=== PATIENT | male | born 1970 | race Caucasian/White ===

== ENCOUNTER 2025-05-03 20:05 | Observation (INO) | payer MEDICARE, SELFPAY ==
[2025-05-03] VITALS (7 sets, daily range): BP systolic 117–154; BP diastolic 88–104; PULSE 67–83; RESP 13–20; TEMP 36.9; O2SAT 92–98; BMI 29.5
--- NOTE | 2025-05-03 19:50 | ECG_ITS ---
APPROVED REPORT Exam: Resting ECG HR:84 bpm ECG Measurements Heart Rate 84 AXES NH 175 P 60 QRSd 125 QRS 79 QT 406 T 63 QTc 447 Conclusion SINUS RHYTHM POSSIBLE INFERIOR MYOCARDIAL INFARCTION , PROBABLY OLD [30 ms Q WAVE IN II/aVF] BORDERLINE ECG UNCONFIRMED REPORT Electronically signed by : IRVING KRISHNAMURTHY, 05/04/2025 07:44:15
--- NOTE | 2025-05-03 19:59 | XR_ITS ---
PROCEDURE INFORMATION: Exam: XR Chest Exam date and time: 05/03/2025 8:25 PM Age: 54 years old Clinical indication: Shortness of breath; Additional info: Soa/cp TECHNIQUE: Imaging protocol: Radiologic exam of the chest. Views: 1 view. COMPARISON: No relevant prior studies available. FINDINGS: Lungs: Unremarkable. No consolidation. Pleural spaces: Unremarkable. No pleural effusion. No pneumothorax. Heart/Mediastinum: Unremarkable. No cardiomegaly. Bones/joints: Unremarkable. IMPRESSION: No acute findings.
[2025-05-03 20:07] LABS: Hematocrit 35.6 % (42.0-52.0); Hemoglobin 12.0 g/dL (14.1-18.0); Immature Granulocytes % 0.4 %; Mean Corpuscular HGB Conc 33.7 g/dL (31.8-35.4); Mean Corpuscular Hemoglobin 28.2 pg (27.0-31.2); Mean Corpuscular Volume 83.8 fl (80-94); Nucleated Red Blood Cells % 0 %; Platelet Count 227 K/mm3 (142-424); Red Blood Count 4.25 M/mm3 (4.60-6.20); Red Cell Distribution Width-SD 48.2 fL; White Blood Count 9.2 K/mm3 (4.8-10.8)
--- NOTE | 2025-05-03 20:08 | ED_ITS ---
<Statement entered by Griselda Martinez DO - 05/05/25 18:19> I was consulted by the ANA, and we discussed the complexity of problems being addressed. I approve the treatment and management plan for this patient's care in the emergency department, thus performing a substantial portion of the medical decision making. Griselda Martinez DO Discharge Plan Disposition Patient Disposition: Admitted Condition: Good Clinical Impressions Clinical Impression: Unstable angina Discharge ED Provider: Griselda Martinez HPI <VERNELL Live - Last Filed: 05/03/25 22:49> General Chief Complaint: Chest Pain Stated Complaint: Chest Pain Time Seen by Provider: 05/03/25 20:07 Mode of Arrival: EMS Source of Information: Patient Description of Symptoms (Recalled from ER Triage Doc. by RN): PT REPORTS CHEST PAIN THAT BEGAN AN HOUR AGO, PT TOOK 3 NOTROS AT HOME WITHOUT RELIEF. PT REPORTS THE PAIN STARTS IN THE LEFT CHEST RADIATES INTO THE LEFT SHOULDER AND INTO THE JAW History of Present Illness HPI narrative: 54-year-old male presents to the emergency department via EMS from assisted living facility, for chest pain that is located left substernally radiating up into the jaw and down the left arm, patient states that it occurred 1 hour prior to arrival, patient has taken 3 nitroglycerin, with little relief of symptomatology, patient currently rates his chest pain a 9 out of 10, at maximal was a 9 out of 10, he endorses some shortness of breath that is since resolved, denies any fever or chills, does have nonproductive cough at baseline, does have past medical history consistent with COPD, he states that he did take a puff of inhaler , that did help his shortness of breath, he denies any abdominal pain but does admit to nausea no vomiting no constipation no diarrhea no urinary type symptomatology, patient is a current everyday smoker, previous history of alcohol use/drug use, other past medical history is consistent with hypothyroidism, coronary artery disease status post 10 stent placements, hyperlipidemia, patient is on antiplatelet therapy with clopidogrel, GERD. Initial triage vitals unremarkable. Please note that above description of symptoms, in this electronic medical record under categorization of recalled from ER triage doctor by RN are reflective of an initial nursing assessment, however, is not reflective of my full history and physical exam that was personally taken and clarified. Consequentially, this preceding description of symptoms, which may include the patient's categorized chief complaint in the EMR, do not reflect my personal clinical impression, and the ultimate description of history of present illness and patient stated complaints should be deferred to this section of the note. Unless stated otherwise or congruent with this section of the note, additional signs, symptoms, or incongruence should be interpreted as inaccurate with my clinical impression. MD complaint: chest pain Onset (ago): hour(s) Related Data Home Medications ?Medication ?Instructions ?Recorded ?Confirmed amiodarone 200 mg tablet 200 mg PO DAILY 05/03/25 amlodipine 10 mg tablet 10 mg PO DAILY 05/03/2504/18 atorvastatin 80 mg tablet 80 mg PO DAILY 05/03/2504/18 clopidogrel 75 mg tablet 75 mg PO DAILY 05/03/2504/18 duloxetine 60 mg capsule,delayed 60 mg PO DAILY 05/03/25 release sprinkle ferrous sulfate 325 mg (65 mg 325 mg PO DAILY 05/03/25 05/03/25 iron) tablet (FeroSul) fluphenazine HCl 5 mg tablet 5 mg PO DAILY 05/03/25 fluticasone furoate 100 1 inh inhalation DAILY 05/0305/03/25 mcg/actuation blister powder for inhalation (Arnuity Ellipta) isosorbide mononitrate 60 mg 60 mg PO DAILY 05/03/25 0 05/03/25 tablet,extended release 24 hr levothyroxine 200 mcg tablet 200 mcg PO DAILY 05/03/25 05/03/25 lisinopril 20 mg tablet 20 mg PO DAILY 05/03/2504/18 nitroglycerin 0.4 mg sublingual 0.4 mg sublingual Q5M PRN Chest 05/03/25 05/03/25 tablet Pain pantoprazole 40 mg granules 40 mg PO DAILY 05/03/25 delayed-release for susp in packet prazosin 1 mg capsule 1 mg PO HS 05/03/25 05/03/25 ranolazine 500 mg tablet,extended 500 mg PO BID 05/03/25 release,12 hr tamsulosin 0.4 mg capsule 0.4 mg PO DAILY 05/03/25 Previous Rx's ?Medication ?Instructions ?Recorded carvedilol 6.25 mg tablet 6.25 mg PO BID 30 days #60 t abs 05/04/25 Allergies Allergy/AdvReac Type Severity Reaction Status Date / Time acetaminophen (From Tylenol) Allergy Hives Verified 05/04/25 01:39 buspirone Allergy Unknown Verified 05/04/25 01:39 allergy reaction ibuprofen Allergy Rash Verified 05/04/25 01:39 ketorolac (From Toradol) Allergy Hives Verified 05/04/25 01:39 olanzapine (From Zyprexa) Allergy Unknown Verified 05/04/25 01:39 allergy reaction risperidone (From Risperdal) Allergy Unknown Verified 05/04/25 01:39 allergy reaction tramadol Allergy Hives Verified 05/04/25 01:39 ziprasidone (From Geodon) Allergy Unknown Verified 05/04/25 01:39 allergy reaction PFSH <VERNELL Live - Last Filed: 05/03/25 22:49> [facility] Disclaimer: The information contained in this section may have been updated after the patient was seen, as this information can be updated by other users. Medical History (Updated 05/04/25 @ 09:42 by VERNELL Escobedo) Stress bladder incontinence, male Pneumonia Emphysema/COPD History of transient ischemic attack (TIA) Colonoscopy planned Stomach ulcer Hypothyroid Congestive heart failure Hypertension Tonsillectomy planned Cholecystectomy planned Spinal stenosis History of left heart catheterization PTSD (post-traumatic stress disorder) Surgical History (Updated 05/04/25 @ 01:31 by Vanessa Carter RN) H/O adenoidectomy H/O heart artery stent H/O spinal fusion Social History (Updated 05/04/25 @ 01:31 by Vanessa Carter RN) Smoking Status: Current every day smoker alcohol intake: former current occupational status: other Travel in the last 8 weeks?: None <VERNELL Live - Last Filed: 05/03/25 22:49> ROS Obtained: Yes All systems reviewed & no additional complaints except as documented Physical Exam <VERNELL Live - Last Filed: 05/03/25 22:49> General General appearance: alert and in no apparent distress Head Head exam: atraumatic and normocephalic Eye Eye exam: Present normal appearance, PERRL and EOMI Neck Neck exam: Present full ROM; Absent meningismus Chest Chest inspection: Present normal inspection; Absent tenderness Respiratory Respiratory exam: Absent respiratory distress, wheezes, stridor, accessory muscle use or prolonged expiratory phase Cardiovascular Cardiovascular exam: Present normal rhythm and other (Pulses equal and symmetric in bilateral upper and lower extremities) Abdominal Exam Abdominal exam: Absent distention, tenderness, guarding, rebound or rigidity Extremities Exam Extremities exam: Absent edema Neurological Exam Neurological exam: Present alert Psychiatric Psychiatric exam: Present normal affect Skin Skin exam: Present warm and dry HEART Score <VERNELL Live - Last Filed: 05/03/25 22:49> HEART Score HEART Score assessment performed?: Yes HEART Score: 4 <Griselda Martinez DO - Last Filed: 05/05/25 21:23> HEART Score HEART Score: 5 Critical Care <VERNELL Live - Last Filed: 05/03/25 22:49> Critical Care Time Critical Care Time: No Medical Decision Making <VERNELL Live - Last Filed: 05/03/25 22:49> Medical Records Medical records reviewed: Yes I reviewed the patient's medical records. Jar[place]o Inquiry Pt receiving controlled substance: Yes Jar[place]o was queried for this patient: No Reason not queried -: Emergent pt cond-no time Risks and benefits of using a controlled substance: were discussed with pt by me Vital Signs Vital Signs: 05/03/25 19:57 05/03/25 20:30 05/03/25 21:01 Temperature 98.4 F Temperature Source Oral Pulse Rate 83 67 Pulse Rate [Right] 72 Respiratory Rate 20 15 17 Blood Pressure 144/90 H 147/90 H Blood Pressure [Right Arm] 149/88 H Blood Pressure Mean Blood Pressure Mean [Right Arm] 108 02 Sat by Pulse Oximetry 98 95 93 L Oxygen Delivery Method Room Air 05/03/25 21:30 05/03/25 22:00 05/03/25 22:31 Temperature Temperature Source Pulse Rate 75 74 Pulse Rate [Right] Respiratory Rate 17 16 Blood Pressure 147/89 H 154/92 H 117/104 H Blood Pressure [Right Arm] Blood Pressure Mean 108 104 Blood Pressure Mean [Right Arm] 02 Sat by Pulse Oximetry 96 92 L Oxygen Delivery Method 05/03/25 22:35 05/03/25 23:24 05/04/25 00:11 Temperature Temperature Source Pulse Rate 74 74 Pulse Rate [Right] Respiratory Rate 13 Blood Pressure 131/100 H Blood Pressure [Right Arm] Blood Pressure Mean Blood Pressure Mean [Right Arm] 02 Sat by Pulse Oximetry 97 Oxygen Delivery Method Room Air 05/04/25 00:11 Temperature 98.4 F Temperature Source Pulse Rate 74 Pulse Rate [Right] Respiratory Rate 13 Blood Pressure 131/100 H Blood Pressure [Right Arm] Blood Pressure Mean Blood Pressure Mean [Right Arm] 02 Sat by Pulse Oximetry Oxygen Delivery Method Room Air Lab Data Lab results reviewed: Yes I reviewed the patient's lab results. Labs: Lab Results 05/03/25 19:55: WBC 9.2, RBC 4.25 L, Hgb 12.0 L, Hct 35.6 L, MCV 83.8, MCH 28.2, MCHC 33.7, RDW 15.7, Plt Count 227, MPV 10.7 H, Neut % (Auto) 56.8, Lymph % (Auto) 31.2, [place] % (Auto) 9.8 H, Eos % (Auto) 1.3, Baso % (Auto) 0.5, Neut # (Auto) 5.2, Lymph # (Auto) 2.9, [place] # (Auto) 0.9, Eos # (Auto) 0.1, Baso # (Auto) 0.1, PT 10.3, INR 0.92, D-Dimer < 0.25, Sodium 138, Potassium 3.5, Chloride 106, Carbon Dioxide 27, Anion Gap 8.5, BUN 14, Creatinine 1.30 H, Estimated Creat Clear 84, Estimated GFR 58 L, Est GFR ( Amer) 70, Glucose 99, Calcium 9.9, Magnesium 2.0, Total Bilirubin 0.3, AST 27, ALT 11 L, Alkaline Phosphatase 79, Troponin I < 0.01, NT-Pro-B Natriuret Pep 156 H, Total Protein 7.2, Albumin 4.4, Globulin 2.8, Albumin/Globulin Ratio 1.6, Lipase 173 05/03/25 22:35: Troponin I < 0.01 05/04/25 05:19 05/04/25 05:19 Response Orders (Tests/Meds): ED MEDICATIONS Discontinued Medications Generic Name Dose Route Start Last Admin Trade Name Freq PRN Reason Stop Dose Admin Albuterol/Ipratropium 3 ml 05/04/25 00:57 05/04/25 11:10 Ipratropium/Albuterol 3 Ml Neb IH 06/03/25 00:56 3 ml Q6HP PRN Administration Shortness Of Breath Amiodarone HCl 200 mg 05/04/25 09:00 05/04/25 08:45 Amiodarone 200mg Tablet PO 06/03/25 08:59 200 mg DAILY ARCELIA Administration Amlodipine Besylate 10 mg 05/04/25 09:00 05/04/25 08:45 Amlodipine 10mg Tablet PO 06/03/25 08:59 10 mg DAILY ARCELIA Administration Aspirin 325 mg 05/03/25 20:00 05/03/25 20:10 Aspirin 325mg Tablet PO 05/03/25 20:01 325 mg ONCE ONE Administration Atorvastatin Calcium 80 mg 05/04/25 21:00 05/04/25 01:12 Atorvastatin 40mg Tablet PO 06/03/25 20:59 80 mg HS ARCELIA Administration Atorvastatin Calcium 80 mg 05/04/25 01:15 05/04/25 01:41 Atorvastatin 40mg Tablet PO 06/03/25 01:14 Not Given HS ARCELIA Carvedilol 3.125 mg 05/04/25 01:10 05/04/25 08:45 Carvedilol 3.125mg Tablet PO 06/03/25 01:09 3.125 mg BID ARCELIA Administration Carvedilol 6.25 mg 05/04/25 21:00 Carvedilol 6.25mg Tablet PO 06/03/25 20:59 BID ARCELIA Carvedilol 3.125 mg 05/04/25 10:00 05/04/25 10:43 Carvedilol 3.125mg Tablet PO 05/04/25 10:01 3.125 mg ONCE ONE Administration Clopidogrel Bisulfate 75 mg 05/04/25 09:00 05/04/25 08:45 Clopidogrel 75mg Tab PO 06/03/25 08:59 75 mg DAILY ARCELIA Administration Duloxetine HCl 60 mg 05/04/25 09:00 05/04/25 08:45 Duloxetine 30mg Capsule.Dr PO 06/03/25 08:59 60 mg DAILY ARCELIA Administration Enoxaparin Sodium 40 mg 05/04/25 09:00 05/04/25 08:46 Enoxaparin 40mg/0.4ml Syringe SUBCUT 06/03/25 08:59 Not Given DAILY ARCELIA Ferrous Sulfate 325 mg 05/04/25 09:00 05/04/25 08:46 Ferrous Sulfate 325mg Tablet PO 06/03/25 08:59 325 mg DAILY ARCELIA Administration Hydralazine HCl 10 mg 05/04/25 01:46 Hydralazine 20mg/Ml Vial IV 06/03/25 01:45 Q6HP PRN SBP>160 Isosorbide Mononitrate 60 mg 05/04/25 09:00 05/04/25 08:45 Isosorbide [place] 60mg Tab.Er.24h PO 06/03/25 08:59 60 mg DAILY ARCELIA Administration Levothyroxine Sodium 200 mcg 05/04/25 09:00 05/04/25 08:46 Levothyroxine 100mcg (0.1mg) Tab PO 06/03/25 08:59 200 mcg DAILYDM ARCELIA Administration Lisinopril 20 mg 05/04/25 09:00 05/04/25 08:46 Lisinopril 20mg Tablet PO 06/03/25 08:59 20 mg DAILY ARCELIA Administration Morphine Sulfate 4 mg 05/03/25 20:12 05/03/25 20:33 Morphine 4mg/Ml Syringe IV 05/03/25 20:13 4 mg ONCE ONE Administration Morphine Sulfate 2 mg 05/03/25 22:06 05/03/25 22:06 Morphine 2mg/Ml Syringe IV 05/03/25 22:07 2 mg ONCE ONE Administration Morphine Sulfate 2 mg 05/04/25 01:00 05/04/25 01:10 Morphine 2mg/Ml Syringe IV 06/03/25 00:59 2 mg Q6HP PRN Administration Moderate Pain (4-6) Morphine Sulfate 4 mg 05/04/25 01:01 05/04/25 07:55 Morphine 4mg/Ml Syringe IV 06/03/25 01:00 4 mg Q6HP PRN Administration Severe Pain (7-10) Morphine Sulfate 2 mg 05/04/25 05:30 05/04/25 05:17 Morphine 2mg/Ml Syringe IV 05/04/25 05:31 2 mg ONCE ONE Administration Nicotine 21 mg 05/03/25 23:48 05/04/25 08:50 Nicotine 21mg/24hr Patch TD 06/02/25 23:47 21 mg DAILYP PRN Administration Nicotine Cravings Nitroglycerin 0.4 mg 05/03/25 23:48 Nitroglycerin 0.4mg Sl Tablet SL 06/02/25 23:47 Q5MINP PRN Chest Pain Nitroglycerin 1 gm 05/04/25 00:56 05/04/25 01:10 Nitroglycerin 1 Gm Ointment TD 05/04/25 00:57 1 gm ONCE ONE Administration Non-Formulary Medication 5 mg 05/04/25 01:15 05/04/25 01:12 Fluphenazine Hcl PO 06/03/25 01:14 Not Given HS ARCELIA Non-Formulary Medication 1 inh 05/04/25 09:00 Fluticasone Furoate [Arnuity Ellipta] IH 06/03/25 08:59 DAILY ARCELIA Ondansetron HCl 4 mg 05/03/25 20:13 05/03/25 20:32 Ondansetron 4mg/2ml Vial IV 05/03/25 20:14 4 mg ONCE ONE Administration Ondansetron HCl 4 mg 05/03/25 22:56 05/03/25 23:49 Ondansetron 4mg/2ml Vial IV 05/03/25 22:57 4 mg ONCE ONE Administration Ondansetron HCl 4 mg 05/03/25 23:10 05/04/25 00:50 Ondansetron 4mg/2ml Vial IV 05/03/25 23:11 Not Given ONCE ONE Ondansetron HCl 4 mg 05/03/25 23:48 05/04/25 11:35 Ondansetron 4mg/2ml Vial IV 06/02/25 23:47 4 mg Q8HP PRN Administration Nausea Pantoprazole Sodium 40 mg 05/04/25 21:00 Pantoprazole 40mg Tablet PO 06/03/25 20:59 HS ARCELIA Prazosin HCl 1 mg 05/04/25 01:10 05/04/25 01:11 Prazosin 1mg Cap PO 06/03/25 01:09 1 mg HS ARCELIA Administration Ranolazine 500 mg 05/04/25 09:00 05/04/25 08:45 Ranolazine 500mg Er Tablet PO 06/03/25 08:59 500 mg BID ARCELIA Administration Sodium Chloride 3 ml 05/04/25 07:36 Sodium Chloride 3% 15ml Neb IH 06/03/25 07:35 ONCE PRN INDUCE SPUTUM COLLECTION Sodium Chloride 10 ml 05/04/25 09:45 Sodium Chloride 0.9% 10ml Flush Syringe IV 06/03/25 09:44 NEEDED PRN Maintain IV Site Tamsulosin HCl 0.4 mg 05/04/25 09:00 05/04/25 08:46 Tamsulosin 0.4mg Capsule PO 06/03/25 08:59 0.4 mg DAILY ARCELIA Administration Trazodone HCl 50 mg 05/04/25 01:48 05/04/25 01:51 Trazodone 50mg Tablet PO 06/03/25 01:47 50 mg HSP PRN Administration Insomnia ORDERS Category Date Time Status XR chest portable Stat Exams 05/03/25 19:59 Completed Complete Blood Count Auto Diff Stat Lab 05/03/25 19:55 Completed Comprehensive Metabolic Panel Stat Lab 05/03/25 19:55 Completed D-Dimer Stat Lab 05/03/25 19:55 Completed Lipase Stat Lab 05/03/25 19:55 Completed Magnesium Stat Lab 05/03/25 19:55 Completed NT Pro Brain Natriuretic Pep. Stat Lab 05/03/25 19:55 Completed PT INR [Prothrombin Time INR] Stat Lab 05/03/25 19:55 Completed Troponin I Q3H Lab 05/03/25 22:35 Completed Troponin I Q3H Lab 05/04/25 02:32 Completed Troponin I Stat Lab 05/03/25 19:55 Completed MDM Narrative Medical Decision Narrative: 54-year-old male presents emergency department with chest pain shortness of breath that occurred 1 hour prior to arrival, differential diagnose include but not limited to, ACS, cardiac arrhythmia, electrolyte disturbance, pneumothorax, pneumonia, costochondritis, PE, gastritis, GERD, anxiety reaction, panic attack among others. Will obtain basic laboratory studies, CXR, D-dimer, lipase, magnesium, proBNP, PT/INR, troponin, EKG, will give 325 mg p.o. aspirin and 4 mg IV Zofran 4 mg. Morphine for pain and nausea. CBC unremarkable CMP is notable for mild creatinine elevation 1.3, lipase the normal limit Coags within normal limits proBNP is mildly elevated at 156 otherwise unremarkable D-dimer is less than 0.25 Initial troponin is less than 0.01. Patient still complaining of pain according nursing staff, will give 2 mg IV morphine for additional pain control. Reviewed the patient's chest x-ray along the corresponding radiologic report, no acute findings. I discussed this patient's case with the attending physician Dr. Martinez at shift change, she will be assuming the patient's care/workup. Disposition is pending repeat troponin and clinical reassessment of chest pain. <Griselda Martinez, DO - Last Filed: 05/05/25 21:23> Vital Signs Vital Signs: 05/03/25 19:57 05/03/25 20:30 05/03/25 21:01 Temperature 98.4 F Temperature Source Oral Pulse Rate 83 67 Pulse Rate [Right] 72 Respiratory Rate 20 15 17 Blood Pressure 144/90 H 147/90 H Blood Pressure [Right Arm] 149/88 H Blood Pressure Mean Blood Pressure Mean [Right Arm] 108 02 Sat by Pulse Oximetry 98 95 93 L Oxygen Delivery Method Room Air 05/03/25 21:30 05/03/25 22:00 05/03/25 22:31 Temperature Temperature Source Pulse Rate 75 74 Pulse Rate [Right] Respiratory Rate 17 16 Blood Pressure 147/89 H 154/92 H 117/104 H Blood Pressure [Right Arm] Blood Pressure Mean 108 104 Blood Pressure Mean [Right Arm] 02 Sat by Pulse Oximetry 96 92 L Oxygen Delivery Method 05/03/25 22:35 05/03/25 23:24 05/04/25 00:11 Temperature Temperature Source Pulse Rate 74 74 Pulse Rate [Right] Respiratory Rate 13 Blood Pressure 131/100 H Blood Pressure [Right Arm] Blood Pressure Mean Blood Pressure Mean [Right Arm] 02 Sat by Pulse Oximetry 97 Oxygen Delivery Method Room Air 05/04/25 00:11 Temperature 98.4 F Temperature Source Pulse Rate 74 Pulse Rate [Right] Respiratory Rate 13 Blood Pressure 131/100 H Blood Pressure [Right Arm] Blood Pressure Mean Blood Pressure Mean [Right Arm] 02 Sat by Pulse Oximetry Oxygen Delivery Method Room Air Lab Data Labs: Lab Results 05/03/25 19:55: WBC 9.2, RBC 4.25 L, Hgb 12.0 L, Hct 35.6 L, MCV 83.8, MCH 28.2, MCHC 33.7, RDW 15.7, Plt Count 227, MPV 10.7 H, Neut % (Auto) 56.8, Lymph % (Auto) 31.2, [place] % (Auto) 9.8 H, Eos % (Auto) 1.3, Baso % (Auto) 0.5, Neut # (Auto) 5.2, Lymph # (Auto) 2.9, [place] # (Auto) 0.9, Eos # (Auto) 0.1, Baso # (Auto) 0.1, PT 10.3, INR 0.92, D-Dimer < 0.25, Sodium 138, Potassium 3.5, Chloride 106, Carbon Dioxide 27, Anion Gap 8.5, BUN 14, Creatinine 1.30 H, Estimated Creat Clear 84, Estimated GFR 58 L, Est GFR ( Amer) 70, Glucose 99, Calcium 9.9, Magnesium 2.0, Total Bilirubin 0.3, AST 27, ALT 11 L, Alkaline Phosphatase 79, Troponin I < 0.01, NT-Pro-B Natriuret Pep 156 H, Total Protein 7.2, Albumin 4.4, Globulin 2.8, Albumin/Globulin Ratio 1.6, Lipase 173 05/03/25 22:35: Troponin I < 0.01 Response Orders (Tests/Meds): ED MEDICATIONS Discontinued Medications Generic Name Dose Route Start Last Admin Trade Name Freq PRN Reason Stop Dose Admin Albuterol/Ipratropium 3 ml 05/04/25 00:57 05/04/25 11:10 Ipratropium/Albuterol 3 Ml Neb IH 06/03/25 00:56 3 ml Q6HP PRN Administration Shortness Of Breath Amiodarone HCl 200 mg 05/04/25 09:00 05/04/25 08:45 Amiodarone 200mg Tablet PO 06/03/25 08:59 200 mg DAILY ARCELIA Administration Amlodipine Besylate 10 mg 05/04/25 09:00 05/04/25 08:45 Amlodipine 10mg Tablet PO 06/03/25 08:59 10 mg DAILY ARCELIA Administration Aspirin 325 mg 05/03/25 20:00 05/03/25 20:10 Aspirin 325mg Tablet PO 05/03/25 20:01 325 mg ONCE ONE Administration Atorvastatin Calcium 80 mg 05/04/25 21:00 05/04/25 01:12 Atorvastatin 40mg Tablet PO 06/03/25 20:59 80 mg HS ARCELIA Administration Atorvastatin Calcium 80 mg 05/04/25 01:15 05/04/25 01:41 Atorvastatin 40mg Tablet PO 06/03/25 01:14 Not Given HS ARCELIA Carvedilol 3.125 mg 05/04/25 01:10 05/04/25 08:45 Carvedilol 3.125mg Tablet PO 06/03/25 01:09 3.125 mg BID ARCELIA Administration Carvedilol 6.25 mg 05/04/25 21:00 Carvedilol 6.25mg Tablet PO 06/03/25 20:59 BID ARCELIA Carvedilol 3.125 mg 05/04/25 10:00 05/04/25 10:43 Carvedilol 3.125mg Tablet PO 05/04/25 10:01 3.125 mg ONCE ONE Administration Clopidogrel Bisulfate 75 mg 05/04/25 09:00 05/04/25 08:45 Clopidogrel 75mg Tab PO 06/03/25 08:59 75 mg DAILY ARCELIA Administration Duloxetine HCl 60 mg 05/04/25 09:00 05/04/25 08:45 Duloxetine 30mg Capsule.Dr PO 06/03/25 08:59 60 mg DAILY ARCELIA Administration Enoxaparin Sodium 40 mg 05/04/25 09:00 05/04/25 08:46 Enoxaparin 40mg/0.4ml Syringe SUBCUT 06/03/25 08:59 Not Given DAILY ARCELIA Ferrous Sulfate 325 mg 05/04/25 09:00 05/04/25 08:46 Ferrous Sulfate 325mg Tablet PO 06/03/25 08:59 325 mg DAILY ARCELIA Administration Hydralazine HCl 10 mg 05/04/25 01:46 Hydralazine 20mg/Ml Vial IV 06/03/25 01:45 Q6HP PRN SBP>160 Isosorbide Mononitrate 60 mg 05/04/25 09:00 05/04/25 08:45 Isosorbide [place] 60mg Tab.Er.24h PO 06/03/25 08:59 60 mg DAILY ARCELIA Administration Levothyroxine Sodium 200 mcg 05/04/25 09:00 05/04/25 08:46 Levothyroxine 100mcg (0.1mg) Tab PO 06/03/25 08:59 200 mcg DAILYDM ARCELIA Administration Lisinopril 20 mg 05/04/25 09:00 05/04/25 08:46 Lisinopril 20mg Tablet PO 06/03/25 08:59 20 mg DAILY ARCELIA Administration Morphine Sulfate 4 mg 05/03/25 20:12 05/03/25 20:33 Morphine 4mg/Ml Syringe IV 05/03/25 20:13 4 mg ONCE ONE Administration Morphine Sulfate 2 mg 05/03/25 22:06 05/03/25 22:06 Morphine 2mg/Ml Syringe IV 05/03/25 22:07 2 mg ONCE ONE Administration Morphine Sulfate 2 mg 05/04/25 01:00 05/04/25 01:10 Morphine 2mg/Ml Syringe IV 06/03/25 00:59 2 mg Q6HP PRN Administration Moderate Pain (4-6) Morphine Sulfate 4 mg 05/04/25 01:01 05/04/25 07:55 Morphine 4mg/Ml Syringe IV 06/03/25 01:00 4 mg Q6HP PRN Administration Severe Pain (7-10) Morphine Sulfate 2 mg 05/04/25 05:30 05/04/25 05:17 Morphine 2mg/Ml Syringe IV 05/04/25 05:31 2 mg ONCE ONE Administration Nicotine 21 mg 05/03/25 23:48 05/04/25 08:50 Nicotine 21mg/24hr Patch TD 06/02/25 23:47 21 mg DAILYP PRN Administration Nicotine Cravings Nitroglycerin 0.4 mg 05/03/25 23:48 Nitroglycerin 0.4mg Sl Tablet SL 06/02/25 23:47 Q5MINP PRN Chest Pain Nitroglycerin 1 gm 05/04/25 00:56 05/04/25 01:10 Nitroglycerin 1 Gm Ointment TD 05/04/25 00:57 1 gm ONCE ONE Administration Non-Formulary Medication 5 mg 05/04/25 01:15 05/04/25 01:12 Fluphenazine Hcl PO 06/03/25 01:14 Not Given HS ARCELIA Non-Formulary Medication 1 inh 05/04/25 09:00 Fluticasone Furoate [Arnuity Ellipta] IH 06/03/25 08:59 DAILY ARCELIA Ondansetron HCl 4 mg 05/03/25 20:13 05/03/25 20:32 Ondansetron 4mg/2ml Vial IV 05/03/25 20:14 4 mg ONCE ONE Administration Ondansetron HCl 4 mg 05/03/25 22:56 05/03/25 23:49 Ondansetron 4mg/2ml Vial IV 05/03/25 22:57 4 mg ONCE ONE Administration Ondansetron HCl 4 mg 05/03/25 23:10 05/04/25 00:50 Ondansetron 4mg/2ml Vial IV 05/03/25 23:11 Not Given ONCE ONE Ondansetron HCl 4 mg 05/03/25 23:48 05/04/25 11:35 Ondansetron 4mg/2ml Vial IV 06/02/25 23:47 4 mg Q8HP PRN Administration Nausea Pantoprazole Sodium 40 mg 05/04/25 21:00 Pantoprazole 40mg Tablet PO 06/03/25 20:59 HS ARCELIA Prazosin HCl 1 mg 05/04/25 01:10 05/04/25 01:11 Prazosin 1mg Cap PO 06/03/25 01:09 1 mg HS ARCELIA Administration Ranolazine 500 mg 05/04/25 09:00 05/04/25 08:45 Ranolazine 500mg Er Tablet PO 06/03/25 08:59 500 mg BID ARCELIA Administration Sodium Chloride 3 ml 05/04/25 07:36 Sodium Chloride 3% 15ml Neb IH 06/03/25 07:35 ONCE PRN INDUCE SPUTUM COLLECTION Sodium Chloride 10 ml 05/04/25 09:45 Sodium Chloride 0.9% 10ml Flush Syringe IV 06/03/25 09:44 NEEDED PRN Maintain IV Site Tamsulosin HCl 0.4 mg 05/04/25 09:00 05/04/25 08:46 Tamsulosin 0.4mg Capsule PO 06/03/25 08:59 0.4 mg DAILY ARCELIA Administration Trazodone HCl 50 mg 05/04/25 01:48 05/04/25 01:51 Trazodone 50mg Tablet PO 06/03/25 01:47 50 mg HSP PRN Administration Insomnia ORDERS Category Date Time Status XR chest portable Stat Exams 05/03/25 19:59 Completed Complete Blood Count Auto Diff Stat Lab 05/03/25 19:55 Completed Comprehensive Metabolic Panel Stat Lab 05/03/25 19:55 Completed D-Dimer Stat Lab 05/03/25 19:55 Completed Lipase Stat Lab 05/03/25 19:55 Completed Magnesium Stat Lab 05/03/25 19:55 Completed NT Pro Brain Natriuretic Pep. Stat Lab 05/03/25 19:55 Completed PT INR [Prothrombin Time INR] Stat Lab 05/03/25 19:55 Completed Troponin I Q3H Lab 05/03/25 22:35 Completed Troponin I Q3H Lab 05/04/25 02:32 Completed Troponin I Stat Lab 05/03/25 19:55 Completed MDM Narrative Medical Decision Narrative: 54-year-old male presents emergency department with chest pain shortness of breath that occurred 1 hour prior to arrival, differential diagnose include but not limited to, ACS, cardiac arrhythmia, electrolyte disturbance, pneumothorax, pneumonia, costochondritis, PE, gastritis, GERD, anxiety reaction, panic attack among others. Will obtain basic laboratory studies, CXR, D-dimer, lipase, magnesium, proBNP, PT/INR, troponin, EKG, will give 325 mg p.o. aspirin and 4 mg IV Zofran 4 mg. Morphine for pain and nausea. CBC unremarkable CMP is notable for mild creatinine elevation 1.3, lipase the normal limit Coags within normal limits proBNP is mildly elevated at 156 otherwise unremarkable D-dimer is less than 0.25 Initial troponin is less than 0.01. Patient still complaining of pain according nursing staff, will give 2 mg IV morphine for additional pain control. Reviewed the patient's chest x-ray along the corresponding radiologic report, no acute findings. I discussed this patient's case with the attending physician Dr. Martinez at shift change, she will be assuming the patient's care/workup. Disposition is pending repeat troponin and clinical reassessment of chest pain. Griselda Martinez, I assumed care of the patient at 2200. Patient's second troponin was less than 0.01. Repeat evaluation, patient continued to have chest pain. Patient's heart score was 5. Given concern for unstable angina, patient was admitted to the hospitalist for further workup.
[2025-05-03] MEDS: ASPIRIN 325MG TABLET 325 MG PO (20:10)
[2025-05-03 20:28] LABS: INR 0.92 (0.9-1.1); Prothrombin Time 10.3 seconds (10.1-12.5)
[2025-05-03 20:29] LABS: Lipase 173 U/L (23-300); Magnesium 2.0 mg/dl (1.6-2.3)
[2025-05-03 20:30] LABS: Alanine Aminotransferase 11 U/L (12-78); Albumin Level 4.4 g/dl (3.5-5.0); Albumin/Globulin Ratio 1.6 (1.1-1.8); Alkaline Phosphatase 79 U/L (38-126); Anion Gap 8.5 mEq/L (5-15); Aspartate Amino Transferase 27 U/L (17-59); Bilirubin,Total 0.3 mg/dl (0.2-1.3); Blood Urea Nitrogen 14 mg/dl (9-20); Calcium 9.9 mg/dl (8.4-10.2); Carbon Dioxide 27 mmol/L (22.0-30.0); Chloride 106 mmol/L (98-107); Creatinine Clearance Estimated 84 mL/min (50-200); Creatinine,Serum 1.30 mg/dl (0.66-1.25); Estimated Glomerular Filt Rate 58 ml/min (>60); GFR (African American) 70 ML/MIN (>60); Globulin 2.8 g/dL (1.3-3.2); Glucose 99 mg/dl (74-100); Potassium 3.5 mmoL/L (3.5-5.1); Sodium 138 mmol/L (136-145); Total Protein,Serum 7.2 g/dl (6.3-8.2)
[2025-05-03] MEDS: ONDANSETRON 4MG/2ML VIAL 4 MG IV ×2 (20:32→23:49)
[2025-05-03] MEDS: MORPHINE 4MG/ML SYRINGE 4 MG IV (20:33)
[2025-05-03 20:39] LABS: NT Pro Brain Natriuretic Pep. 156 pg/mL (0-125)
[2025-05-03 20:41] LABS: D-Dimer < 0.25 ug/mL (0.0-0.5)
[2025-05-03 20:42] LABS: Troponin I < 0.01 ng/ml (0.00-0.034)
[2025-05-03] MEDS: MORPHINE 2MG/ML SYRINGE 2 MG IV (22:06)
[2025-05-03 23:06] LABS: Troponin I < 0.01 ng/ml (0.00-0.034)
--- NOTE | 2025-05-03 23:47 | EXP.HP ---
History of Present Illness *Admission Date: 05/03/25 *Reason for visit:: Chest discomfort, febrile illness, dark stools *History of present illness: 54-year-old patient with past medical history of emphysema, CHF, CKD, UT x 14 most recent July 2023, CAD with 10 stents, hypertension, hyperlipidemia, hypothyroidism. Patient presents complaining of chest discomfort. Patient currently lives at home with intermediate, and stated that chest discomfort occurred around 7 PM. Describes chest discomfort as 9/10, stabbing, substernal, with radiation to right jaw. Patient took 1 nitro with some relief of chest discomfort. Chest discomfort then reoccurred, and patient took 2 additional nitros with little relief. Patient then asked facility to call EMS and was brought to hospital for evaluation. EKG without signs or symptoms of acute coronary syndrome. First set of troponin less than 0.0. Records review occurred overnight, and patient had last cardiac catheterization [facility] 03/31/2024. States he gets medical care at [facility] in [place]. Called [facility] overnight, and patient primarily seen in the emergency room at that facility during most visits. Apparently treated at last year for stroke evaluation. Complains of hot/cold spells at home with sore throat over the past 2 days. States he suffers from shortness of breath during chest discomfort episode today. States he suffered from dark stools over the past 2 days. Also states that Tylenol, ibuprofen, Naprosyn caused angioedema. States he also suffers from allergies to Toradol, Ultram, BuSpar, and Zyprexa. Admits to father having myocardial infarction, but ultimately dying from stroke pathology. Takes aspirin/Plavix daily. [facility] Disclaimer: The information contained in this section may have been updated after the patient was seen, as this information can be updated by other users. Medical History (Updated 05/04/25 @ 01:31 by Vanessa Carter RN) Stress bladder incontinence, male Pneumonia Emphysema/COPD History of transient ischemic attack (TIA) Colonoscopy planned Stomach ulcer Hypothyroid Congestive heart failure Hypertension Tonsillectomy planned Cholecystectomy planned Spinal stenosis History of left heart catheterization PTSD (post-traumatic stress disorder) Surgical History (Updated 05/04/25 @ 01:31 by Vanessa Carter RN) H/O adenoidectomy H/O heart artery stent H/O spinal fusion Social History (Updated 05/03/25 @ 22:49 by VERNELL [facility]) Smoking Status: Current every day smoker alcohol intake: former current occupational status: other Travel in the last 8 weeks?: None Review of Systems Review of Systems Review of systems (narrative): Pertinent systems reviewed and negative unless documented in HPI Meds Home Medications and Allergies Home Medications ?Medication ?Instructions ?Recorded ?Confirmed ?Type albuterol 90 mcg/actuation aerosol 90 mcg inhalation NEEDED PRN 05/03/25 05/03/25 History inhaler Asthma amiodarone 200 mg tablet 200 mg PO DAILY 05/03/25 05/03/25 History amlodipine 10 mg tablet 10 mg PO DAILY 05/03/25 05/03/25 History atorvastatin 80 mg tablet 80 mg PO DAILY 05/03/25 05/03/25 History carvedilol 3.125 mg tablet 3.125 mg PO BID 05/03/25 05/03/25 History clopidogrel 75 mg tablet 75 mg PO DAILY 05/03/25 05/03/25 History duloxetine 60 mg capsule,delayed 60 mg PO DAILY 05/03/25 05/03/25 History release sprinkle ferrous sulfate 325 mg (65 mg 325 mg PO DAILY 05/03/25 05/03/25 History iron) tablet (FeroSul) fluphenazine HCl 5 mg tablet 5 mg PO DAILY 05/03/25 05/03/25 History fluticasone furoate 100 1 inh inhalation DAILY 05/03/25 05/03/25 History mcg/actuation blister powder for inhalation (Arnuity Ellipta) isosorbide mononitrate 60 mg 60 mg PO DAILY 05/03/25 05/03/25 History tablet,extended release 24 hr levothyroxine 200 mcg tablet 200 mcg PO DAILY 05/03/25 05/03/25 History lisinopril 20 mg tablet 20 mg PO DAILY 05/03/25 05/03/25 History nitroglycerin 0.4 mg sublingual 0.4 mg sublingual Q5M PRN Chest 05/03/25 05/03/25 History tablet Pain pantoprazole 40 mg granules 40 mg PO DAILY 05/03/25 05/03/25 History delayed-release for susp in packet prazosin 1 mg capsule 1 mg PO HS 05/03/25 05/03/25 History ranolazine 500 mg tablet,extended 500 mg PO BID 05/03/25 05/03/25 History release,12 hr tamsulosin 0.4 mg capsule 0.4 mg PO DAILY 05/03/25 05/03/25 History New Prescriptions to Start Prescriptions: Allergies Allergy/AdvReac Type Severity Reaction Status Date / Time acetaminophen (From Tylenol) Allergy Hives Verified 05/04/25 01:39 buspirone Allergy Unknown Verified 05/04/25 01:39 allergy reaction ibuprofen Allergy Rash Verified 05/04/25 01:39 ketorolac (From Toradol) Allergy Hives Verified 05/04/25 01:39 olanzapine (From Zyprexa) Allergy Unknown Verified 05/04/25 01:39 allergy reaction risperidone (From Risperdal) Allergy Unknown Verified 05/04/25 01:39 allergy reaction tramadol Allergy Hives Verified 05/04/25 01:39 ziprasidone (From Geodon) Allergy Unknown Verified 05/04/25 01:39 allergy reaction Exam Data for Last 24 hours Vital signs and Labs for Last 24 Hours: Temp Pulse Resp BP Pulse Ox O2 Del Method 98.4 F 74 13 131/100 H 97 Room Air 05/03/25 19:57 05/03/25 22:35 05/03/25 22:35 05/03/25 22:35 05/03/25 22:35 05/03/25 19:57 Laboratory Results - last 24 hr 05/03/25 19:55: WBC 9.2, RBC 4.25 L, Hgb 12.0 L, Hct 35.6 L, MCV 83.8, MCH 28.2, MCHC 33.7, RDW 15.7, Plt Count 227, MPV 10.7 H, Neut % (Auto) 56.8, Lymph % (Auto) 31.2, [place] % (Auto) 9.8 H, Eos % (Auto) 1.3, Baso % (Auto) 0.5, Neut # (Auto) 5.2, Lymph # (Auto) 2.9, [place] # (Auto) 0.9, Eos # (Auto) 0.1, Baso # (Auto) 0.1, PT 10.3, INR 0.92, D-Dimer < 0.25, Sodium 138, Potassium 3.5, Chloride 106, Carbon Dioxide 27, Anion Gap 8.5, BUN 14, Creatinine 1.30 H, Estimated Creat Clear 84, Estimated GFR 58 L, Est GFR ( Amer) 70, Glucose 99, Calcium 9.9, Magnesium 2.0, Total Bilirubin 0.3, AST 27, ALT 11 L, Alkaline Phosphatase 79, Troponin I < 0.01, NT-Pro-B Natriuret Pep 156 H, Total Protein 7.2, Albumin 4.4, Globulin 2.8, Albumin/Globulin Ratio 1.6, Lipase 173 05/03/25 22:35: Troponin I < 0.01 I & O for Last 24 hours: Intake & Output 04/30/25 05/01/25 05/02/25 05/03/25 23:59 23:59 23:59 23:59 Weight 90.718 kg *Routine HEENT Exam Head: Present normocephalic Eye: Present EOMI ENT: Present mucous membranes moist *Routine Respiratory Exam Respiratory: Present CTA bilaterally *Routine Cardiovascular Exam Cardiovascular: Present Normal S1 and Normal S2 *Routine Abdominal Exam Abdominal: Present soft and normoactive bowel sounds *Routine Rectal Exam Rectal:: deferred *Routine Genitalia Exam Genitalia:: deferred Additional Findings:: General: NAD, AO x 3 HEENT: Mucous membranes moist Lungs: Diffuse expiratory wheeze, decent air movement CV: RRR Abdomen: S, NT, ND + bowel sounds were also started Musculoskeletal: 5/5 throughout Neuro: Nonfocal Psychiatric: Denies suicidal ideation or homicidal ideation Assessment and Plan *Assessment and plan (1) Unstable angina: Status: Acute Category: Medical Code(s): I20.0 - Unstable angina (2) Malaise: Status: Acute Category: Medical Code(s): R53.81 - Other malaise (3) Dark stools: Status: Acute Category: Medical Code(s): R19.5 - Other fecal abnormalities Plan 54-year-old with past medical history of UT x 14, CAD with 10 stents, CKD, CHF, hypertension, hyperlipidemia, hypothyroidism, mood disorder. Patient presents complaining of chest pain and homicidal and also states he suffered from malaise/fever x 24 hours with dark stools x 2 days. (See below Unstable angina: ? Patient's chest discomfort unrelieved by nitro x 3 at home to intermediate. Admit for cardiac evaluation. N.p.o. after midnight. Serial troponins every 6 x 3 overnight. Telemetry monitoring. 1 inch Nitropaste. Nitro 0.4 sublingual every 4 as needed shortness of breath. Morphine 2 mg IV every 6 as needed moderate pain. Morphine 4 mg IV every 6 severe pain. Aspirin 81 mg p.o. daily. Plavix 75 mg p.o. daily. Low threshold to cardiology overnight if patient's chest pain worsens and/or start nitro gtt. Ordered echocardiogram for a.m. ? Called [facility] in [place] overnight, and learned that patient had cardiac catheterization done at [facility] 03/31/2025. Per [facility] staff, patient primarily visits that hospital for emergency room evaluations. [facility] staff also states patient admitted to last year for stroke evaluation. Will reach out to [facility] to obtain cath records. Will also reach out to for records of patient's hospitalization last year. Dark stools and patient on iron pills: ?Denies abdominal pain. Ordered guaiac overnight. Also will order iron studies in a.m. If patient has positive guaiac and/more iron deficiency anemia noted on iron studies, low threshold to initiate further GI bleeding evaluation during this hospitalization. PT 10.3, INR 0.92, Hgb 12, HCT 35.6. Patient's coags and H&H do not appear consistent with active GI bleed. Patient takes iron pills ferrous sulfate 325 p.o. daily, which may be contributing to dark stools. Malaise: ? Admits to hot/cold spells, sore throat. Will rule out respiratory illness by ordering nasopharyngeal respiratory panel. Chest x-ray without signs of acute respiratory infection. Hyperlipidemia: Atorvastatin 80 mg p.o. nightly Hypertensive urgency: BP meds as noted in CHF section plus hydralazine 10 mg IV Q6. SBP greater than 160. CHF: BNP 156 at time of admission. Lisinopril 20 mg p.o. daily, isosorbide mononitrate 60 mg p.o. daily, amlodipine 10 mg p.o. daily Ranexa 500 p.o. daily Mood disorder: Fluphenazine 5 mg p.o. nightly GERD Protonix 40 mg p.o. daily Emphysema: Trelogy 100 mcg/62.5 mcg / 24 mcg 1 puff inhaled daily MDM ? I spoke with the emergency room provider patient today. ? Patient's unstable angina poses risk to life and bodily function. ? I made decision to admit patient to hospital for unstable angina evaluation which failed emergency room management. ? Prescription drug management including IV morphine as listed above ? Patient with complicated medical patient with acute unstable angina, acute malaise, acute dark stools, chronic CHF/CKD/mood disorder/GERD/emphysema/hypertension/CAD issues. I reviewed all imaging/lab work pertinent to patient's case including: Chest x-ray: No acute findings Troponin<0.01, D-dimer <0.25 PT 10.3, INR 0.92, BNP 156 NA 138, K3.5, CL 106, CO2 27, BUN 13, CR 1.30, GLU 99 Total bili 0.3, AST 27, ALT 11, alk phos 79, total protein 7.2 ALB 4.4 EGD lipase 173, 83 4.0, HCT 35.6, platelets 227 I will repeat CBC, BMP, mag in a.m. I will also order iron, ferritin, TIBC, transferrin test in a.m. I also ordered fasting lipid panel for a.m. 35 minutes of total care time spent on patient myself, Natalio Hsieh MD, 05/03/2025 Discharge planning: To be determined. Depending on outcome of cardiology evaluation. Given patient just had cardiac catheterization at [facility] 03/31/2025, unsure whether patient will require cardiac catheterization during this admission. However, given patient's unstable angina pathology, moderate to high probability that cardiac catheterization could occur during this hospitalization depending on outcome of a.m. cardiology consultation.
--- NOTE | 2025-05-04 | CA_ITS ---
APPROVED REPORT EXAM: Comprehensive 2D, Doppler, and color-flow Echocardiogram [employer]: Radha Rodriguez CRT Ht: 5 ft 9 in Wt: 200lbs BSA: 2.07 BP: 131/100 mmHg Indications: Chest Pain, CVA/TIA, CAD, 14 MO's, 10 stent's, smoker, HTN, HLD PT moved and snored thru out exam. 2D Dimensions LA Volume 46.70 mL LA Volume Index 22.00 mL/m2 (M/F) 16-34 M-Mode Dimensions RVDd 2.02 cm (0.9-2.6) LA Diam 3.37 cm (1.9-4.0) LVDd 4.62 cm (3.5-5.7) LVDs 2.45 cm (3.5-5.7) IVSd 1.86 cm (0.6-1.1) PWd 1.54 cm (0.6-1.1) EF (Teich) 78.40% FS 47.00% EDV (Teich) 98.30 mL TAPSE 1.53 (<1.7) ESV (Teich) 21.20 mL LV Diastology E Decel Time 353 (160-240 msec) E/A Ratio 1.09 MED A' 8.90 cm/s LAT A' 10.00 cm/s Aortic Valve GISELA Index 0.93 cm2/m2 AoV Peak Von. 244.0 (50-130 cm/s) AI PHT 740.00 ms AO Peak GR. 23.80 mmHg AO Mean GR. 12.90 (<5 mmHg) AO VTI 52.0 (18-25 cm) GISELA (VTI) 1.98 (2.5-4.5 cm2) Mitral Valve MV A Velocity 87.0 (40-130 cm/s) E/A Ratio 1.09 Pulmonary Valve PV Peak Velocity 98.0 (50-150 cm/s) Tricuspid Valve TR P. Velocity 166.00 cm/s RAP Estimate 10.00 mmHg RVSP 21.10 mmHg Left Ventricle The left ventricle is normal size. Left ventricular systolic function is normal. The left ventricular ejection fraction is within the normal range. There is increased left ventricular wall thickness. There is normal LV segmental wall motion. Transmitral Doppler flow pattern suggests impaired LV relaxation. LVEF is 60% Right Ventricle The right ventricle is normal size. The right ventricular systolic function is normal. Atria The left atrium is mildly dilated. The right atrium is mildly dilated. There is no color Doppler evidence of interatrial shunt. Aortic Valve The aortic valve is mildly thickened. Mild aortic stenosis is present. GISELA by continuity equation is 1.6 cm per. Peak velocity 2.2 m/s. Mean AV gradient 12 mmHg. Max AV gradient 22 mmHg. Mild aortic regurgitation is present. Mitral Valve The mitral valve is mildly thickened. No evidence of mitral valve stenosis. Mild mitral regurgitation is present. Tricuspid Valve The tricuspid valve leaflets are thin and pliable. Trace tricuspid regurgitation. There is insufficient TR jet to estimate RVSP. Pulmonic Valve The pulmonary valve is grossly normal in structure. Trace pulmonic valve regurgitation is present. Great Vessels The aortic root is normal in size. IVC is normal in size and collapses >50% with inspiration. Pericardium There is no pericardial effusion. Other Information Study Quality: Fair Conclusion Normal biventricular systolic function. Biatrial dilation. Mild (GISELA by continuity equation is 1.6 cm per. Peak velocity 2.2 m/s. Mean AV gradient 12 mmHg. Max AV gradient 22 mmHg). Mild AI, mild MR. Electronically signed by : Lea Mcallister MD 05/04/2025 12:16:48
[2025-05-04 00:11] VITALS: BP 131/100; PULSE 74; RESP 13; TEMP 36.9; O2SAT 97
--- NOTE | 2025-05-04 00:18 | PC.NURSE ---
Patient arrived to floor via wheelchair from ED at 00:14.
[2025-05-04 00:35] VITALS: PULSE 90
[2025-05-04 00:51] VITALS: BP 167/93; PULSE 84; RESP 17; TEMP 36.4; O2SAT 95; BMI 28.8
[2025-05-04] MEDS: NITROGLYCERIN 1 GM OINTMENT TD (01:10)
[2025-05-04] MEDS: MORPHINE 2MG/ML SYRINGE 2 MG IV ×2 (01:10→05:17)
[2025-05-04] MEDS: NICOTINE 21MG/24HR PATCH 21 MG TD ×2 (01:10→08:50)
[2025-05-04] MEDS: PRAZOSIN 1MG CAP 1 MG PO (01:11)
[2025-05-04] MEDS: ATORVASTATIN 40MG TABLET 80 MG PO (01:12)
[2025-05-04] MEDS: TRAZODONE 50MG TABLET 50 MG PO (01:51)
[2025-05-04 01:57] LABS: Adenovirus,PCR Not Detected (NotDetected); Chlamydophila Pneumoniae, PCR Not Detected (NotDetected); Coronavirus 19, PCR Not Detected (NotDetected); Coronovirus HKU1,PCR Not Detected (NotDetected); Influenza A, PCR Not Detected (NotDetected); Influenza AH1, 2009 Not Detected (NotDetected); Influenza AH1, PCR Not Detected (NotDetected); Influenza AH3,PCR Not Detected (NotDetected); Influenza B, PCR Not Detected (NotDetected); Mycoplasma Pneumoniae, PCR Not Detected (NotDetected); Parainfluenza 1, PCR Not Detected (NotDetected); Parainfluenza 2, PCR Not Detected (NotDetected); Parainfluenza 3, PCR Not Detected (NotDetected); Parainfluenza 4, PCR Not Detected (NotDetected)
[2025-05-04 03:21] LABS: Troponin I < 0.01 ng/ml (0.00-0.034)
[2025-05-04 04:00] VITALS: BP 140/75; PULSE 76; PULSE 80; RESP 16; TEMP 36.4; O2SAT 96; BMI 29.2
--- NOTE | 2025-05-04 04:56 | PC.NURSE ---
Alert and oriented. Patient complained of pain on arrival to the floor, gave meds per OCT. Patient also ask for sleeping medication and food, notified Jori LOMAS, okayed a snack and sips of water. Patient rested in bed since arriving to floor and took a shower independently. Medication list sent from [facility] used for med rec. Nitro paste applied to left upper chest. No other complaints. Call light in reach.
[2025-05-04 06:36] LABS: Hematocrit 39.0 % (42.0-52.0); Hemoglobin 12.5 g/dL (14.1-18.0); Immature Granulocytes % 0.4 %; Mean Corpuscular HGB Conc 32.1 g/dL (31.8-35.4); Mean Corpuscular Hemoglobin 27.3 pg (27.0-31.2); Mean Corpuscular Volume 85.2 fl (80-94); Nucleated Red Blood Cells % 0 %; Platelet Count 227 K/mm3 (142-424); Red Blood Count 4.58 M/mm3 (4.60-6.20); Red Cell Distribution Width-SD 49.5 fL; White Blood Count 7.3 K/mm3 (4.8-10.8)
[2025-05-04 07:02] LABS: Troponin I < 0.01 ng/ml (0.00-0.034)
[2025-05-04 07:05] LABS: Anion Gap 8.9 mEq/L (5-15); Blood Urea Nitrogen 13 mg/dl (9-20); Calcium 9.7 mg/dl (8.4-10.2); Carbon Dioxide 28 mmol/L (22.0-30.0); Chloride 107 mmol/L (98-107); Cholesterol 177 mg/dl (140-200); Creatinine Clearance Estimated 83 mL/min (50-200); Creatinine,Serum 1.30 mg/dl (0.66-1.25); Estimated Glomerular Filt Rate 58 ml/min (>60); GFR (African American) 70 ML/MIN (>60); Glucose 100 mg/dl (74-100); HDL Cholesterol 70 mg/dl (40-60); Magnesium 2.1 mg/dl (1.6-2.3); Potassium 3.9 mmoL/L (3.5-5.1); Sodium 140 mmol/L (136-145); Triglycerides 109 mg/dl (30-150)
[2025-05-04] MEDS: MORPHINE 4MG/ML SYRINGE 4 MG IV (07:55)
[2025-05-04 08:00] VITALS: BP 122/68; PULSE 67; PULSE 70; RESP 20; TEMP 36.4; O2SAT 90
[2025-05-04] MEDS: AMIODARONE 200MG TABLET 200 MG PO (08:45)
[2025-05-04] MEDS: AMLODIPINE 10MG TABLET 10 MG PO (08:45)
[2025-05-04] MEDS: RANOLAZINE 500MG ER TABLET 500 MG PO (08:45)
[2025-05-04] MEDS: CLOPIDOGREL 75MG TAB 75 MG PO (08:45)
[2025-05-04] MEDS: ISOSORBIDE MONO 60MG TAB.ER.24H 60 MG PO (08:45)
[2025-05-04] MEDS: LISINOPRIL 20MG TABLET 20 MG PO (08:46)
[2025-05-04] MEDS: TAMSULOSIN 0.4MG CAPSULE 0.4 MG PO (08:46)
[2025-05-04] MEDS: LEVOTHYROXINE 100MCG (0.1MG) TAB 200 MCG PO (08:46)
[2025-05-04] MEDS: FERROUS SULFATE 325MG TABLET 325 MG PO (08:46)
[2025-05-04 08:53] LABS: Iron 69 ug/dL (49-181)
[2025-05-04 09:03] LABS: Total Iron Binding Capacity 336 ug/dL (261-462)
[2025-05-04 09:30] LABS: Ferritin 18.5 ng/ml (17.9-464)
--- NOTE | 2025-05-04 09:32 | EXP.CARD.CON ---
History of Present Illness History of Present Illness Consult date: 05/04/25 Requesting physician: Fawad Gruber Consult reason: chest pain Chief complaint: chest pain Additional Medical History:: 1. CAD A. Pt reports 14 FL's with history of at least 10 coronary stents at hospitals in and around [place]. B. Last cath 03/2025, [place]. Records pending C. On Plavix, statin, beta-kathya, isosorbide and ranolazine 2. Former alcoholic, sober x 32 years 3. Continued tobacco use of 1 pack/day A. Started at age 7 B. COPD/emphysema 4. Remote history of peptic ulcer disease and patient reports colonic polyps A. On PPI therapy 5. Hypertension 6. Hyperlipidemia 7. History of CVA approximately 2022 with left facial droop residual. A. Possible atrial fibrillation history since patient has been started on amiodarone therapy. Records pending. 8. History of iron deficiency 9. Hypothyroidism History of present illness: 54-year-old white male who is a new resident of [facility] as a yesterday presented to the emergency department for chest pain. Extensive medical history as noted above but includes CAD with prior FL's and stents and emphysema with continued tobacco use. Patient was admitted for observation overnight. His troponins have been normal and his echocardiogram shows preserved ejection fraction. His most recent cardiac catheterization was last month at [facility] with records pending. Patient does have a history of peptic ulcer disease and is on PPI therapy. He denies any recent vomiting, dysphagia or blood in his bowel movements. [facility] Disclaimer: The information contained in this section may have been updated after the patient was seen, as this information can be updated by other users. Medical History (Updated 05/04/25 @ 09:42 by VERNELL Escobedo) Stress bladder incontinence, male Pneumonia Emphysema/COPD History of transient ischemic attack (TIA) Colonoscopy planned Stomach ulcer Hypothyroid Congestive heart failure Hypertension Tonsillectomy planned Cholecystectomy planned Spinal stenosis History of left heart catheterization PTSD (post-traumatic stress disorder) Surgical History (Updated 05/04/25 @ 01:31 by Vanessa Carter RN) H/O adenoidectomy H/O heart artery stent H/O spinal fusion Social History (Updated 05/04/25 @ 01:31 by Vanessa Carter, RN) Smoking Status: Current every day smoker alcohol intake: former current occupational status: other Travel in the last 8 weeks?: None Have you lived/traveled outside US in past 30 days?: No Contact w/someone who lives/traveled outside US past 30 days?: No Exposure to someone with infectious disease in past 14 days?: No Do you have a fever (greater than 100.4 F or 38 C)?: No Have you tested positive for COVID-19?: No Exposed to someone with COVID-19 in past 14 days?: No Do you have a sore throat?: No Do you have a cough?: No Do you have any weakness?: No Are you experiencing any nausea/vomitting?: No Do you have any diarrhea?: No Are you experiencing any unusual bleeding?: No Do you have any muscle aches/pain?: No Do you have any abdominal pain?: No Are you experiencing loss of taste or smell?: No Review of Systems Review of Systems Review of systems:: pertinent systems reviewed and negative unless documented below *Cardiovascular Cardiovascular: Reports chest pain and Reports dyspnea on exertion *Respiratory Respiratory: Reports dyspnea on exertion Exam Data for Last 24 hours Vital signs and Labs for Last 24 Hours: Temp Pulse Resp BP Pulse Ox O2 Del Method 97.6 F 67 20 122/68 90 L Room Air 05/04/25 08:00 05/04/25 08:00 05/04/25 08:00 05/04/25 08:00 05/04/25 08:00 05/04/25 08:00 Laboratory Results - last 24 hr 05/03/25 19:55: WBC 9.2, RBC 4.25 L, Hgb 12.0 L, Hct 35.6 L, MCV 83.8, MCH 28.2, MCHC 33.7, RDW 15.7, Plt Count 227, MPV 10.7 H, Neut % (Auto) 56.8, Lymph % (Auto) 31.2, [place] % (Auto) 9.8 H, Eos % (Auto) 1.3, Baso % (Auto) 0.5, Neut # (Auto) 5.2, Lymph # (Auto) 2.9, [place] # (Auto) 0.9, Eos # (Auto) 0.1, Baso # (Auto) 0.1, PT 10.3, INR 0.92, D-Dimer < 0.25, Sodium 138, Potassium 3.5, Chloride 106, Carbon Dioxide 27, Anion Gap 8.5, BUN 14, Creatinine 1.30 H, Estimated Creat Clear 84, Estimated GFR 58 L, Est GFR ( Amer) 70, Glucose 99, Calcium 9.9, Magnesium 2.0, Total Bilirubin 0.3, AST 27, ALT 11 L, Alkaline Phosphatase 79, Troponin I < 0.01, NT-Pro-B Natriuret Pep 156 H, Total Protein 7.2, Albumin 4.4, Globulin 2.8, Albumin/Globulin Ratio 1.6, Lipase 173 05/03/25 22:35: Troponin I < 0.01 05/04/25 01:52: Chlamy pneumoniae PCR Not detected, Adenovirus (PCR) Not detected, B. pertussis DNA (PCR) Not detected, Coronavirus OC43 (PCR) Not detected, Coronavirus HKU1 (PCR) Not detected, Coronavirus 229E (PCR) Not detected, SARS-CoV-2 (PCR) Not detected, Coronavirus NL63 (PCR) Not detected, Human Metapneumovir PCR Not detected, Influenza A (H1) PCR Not detected, Influ A (H1N1/09) PCR Not detected, Influenza A (H3) PCR Not detected, Influenza Type A (PCR) Not detected, Influenza Type B (PCR) Not detected, M. pneumoniae (PCR) Not detected, Parainfluenza 1 (PCR) Not detected, Parainfluenza 2 (PCR) Not detected, Parainfluenza 3 (PCR) Not detected, Parainfluenza 4 (PCR) Not detected, RSV (PCR) Not detected, Entero/Rhino (PCR) Not detected 05/04/25 02:32: Troponin I < 0.01 05/04/25 05:19: WBC 7.3, RBC 4.58 L, Hgb 12.5 L, Hct 39.0 L, MCV 85.2, MCH 27.3, MCHC 32.1, RDW 16.0, Plt Count 227, MPV 11.3 H, Neut % (Auto) 62.1, Lymph % (Auto) 25.7, [place] % (Auto) 10.6 H, Eos % (Auto) 0.8, Baso % (Auto) 0.4, Neut # (Auto) 4.5, Lymph # (Auto) 1.9, [place] # (Auto) 0.8, Eos # (Auto) 0.1, Baso # (Auto) 0.0, Sodium 140, Potassium 3.9, Chloride 107, Carbon Dioxide 28, Anion Gap 8.9, BUN 13, Creatinine 1.30 H, Estimated Creat Clear 83, Estimated GFR 58 L, Est GFR ( Amer) 70, Glucose 100, Calcium 9.7, Magnesium 2.1, Iron 69, TIBC 336, Iron Saturation [id number], Troponin I < 0.01, Triglycerides 109, Cholesterol 177, LDL Cholesterol Direct 73.12 L, VLDL Cholesterol 22, HDL Cholesterol 70 H, Cholesterol/HDL Ratio 2.5 I & O for Last 24 hours: Intake & Output 05/01/25 05/02/25 05/03/25 05/04/25 11:59 11:59 11:59 11:59 Intake Total 0 / 0 Balance 0 / 0 Weight 197 lb 4.8 oz Constitutional Constitutional: no acute distress *Routine Respiratory Exam Respiratory: Present decreased breath sounds, rhonchi and wheezes *Routine Cardiovascular Exam Cardiovascular: Present RRR; Absent murmur, gallop or rubs *Routine Extremities Exam Extremities: Absent edema *Routine Neurological Exam Neurological: Present alert, oriented X3 and CN II-XII intact Meds Home Medications and Allergies Home Medications ?Medication ?Instructions ?Recorded ?Confirmed ?Type amiodarone 200 mg tablet 200 mg PO DAILY 05/03/25 05/03/25 History amlodipine 10 mg tablet 10 mg PO DAILY 05/03/25 05/03/25 History atorvastatin 80 mg tablet 80 mg PO DAILY 05/03/25 05/03/25 History carvedilol 3.125 mg tablet 3.125 mg PO BID 05/03/25 05/03/25 History clopidogrel 75 mg tablet 75 mg PO DAILY 05/03/25 05/03/25 History duloxetine 60 mg capsule,delayed 60 mg PO DAILY 05/03/25 05/03/25 History release sprinkle ferrous sulfate 325 mg (65 mg 325 mg PO DAILY 05/03/25 05/03/25 History iron) tablet (FeroSul) fluphenazine HCl 5 mg tablet 5 mg PO DAILY 05/03/25 05/03/25 History fluticasone furoate 100 1 inh inhalation DAILY 05/03/25 05/03/25 History mcg/actuation blister powder for inhalation (Arnuity Ellipta) isosorbide mononitrate 60 mg 60 mg PO DAILY 05/03/25 05/03/25 History tablet,extended release 24 hr levothyroxine 200 mcg tablet 200 mcg PO DAILY 05/03/25 05/03/25 History lisinopril 20 mg tablet 20 mg PO DAILY 05/03/25 05/03/25 History nitroglycerin 0.4 mg sublingual 0.4 mg sublingual Q5M PRN Chest 05/03/25 05/03/25 History tablet Pain pantoprazole 40 mg granules 40 mg PO DAILY 05/03/25 05/03/25 History delayed-release for susp in packet prazosin 1 mg capsule 1 mg PO HS 05/03/25 05/03/25 History ranolazine 500 mg tablet,extended 500 mg PO BID 05/03/25 05/03/25 History release,12 hr tamsulosin 0.4 mg capsule 0.4 mg PO DAILY 05/03/25 05/03/25 History New Prescriptions to Start Prescriptions: Allergies Allergy/AdvReac Type Severity Reaction Status Date / Time acetaminophen (From Tylenol) Allergy Hives Verified 05/04/25 01:39 buspirone Allergy Unknown Verified 05/04/25 01:39 allergy reaction ibuprofen Allergy Rash Verified 05/04/25 01:39 ketorolac (From Toradol) Allergy Hives Verified 05/04/25 01:39 olanzapine (From Zyprexa) Allergy Unknown Verified 05/04/25 01:39 allergy reaction risperidone (From Risperdal) Allergy Unknown Verified 05/04/25 01:39 allergy reaction tramadol Allergy Hives Verified 05/04/25 01:39 ziprasidone (From Geodon) Allergy Unknown Verified 05/04/25 01:39 allergy reaction Assessment and Plan *Assessment and plan (1) Unstable angina: Status: Acute Category: Medical Code(s): I20.0 - Unstable angina (2) Malaise: Status: Acute Category: Medical Code(s): R53.81 - Other malaise (3) Dark stools: Status: Acute Category: Medical Code(s): R19.5 - Other fecal abnormalities (4) CAD (coronary artery disease): Status: Acute Qualifiers: Coronary Disease-Associated Artery/Lesion type: [place] artery [place] vs. transplanted heart: [place] heart Associated angina: with unstable angina Qualified Code(s): I25.110 - Atherosclerotic heart disease of [place] coronary artery with unstable angina pectoris Category: Medical Code(s): I25.10 - Atherosclerotic heart disease of [place] coronary artery without angina pectoris (5) Emphysema/COPD: Status: Acute Qualifiers: Emphysema type: unspecified Qualified Code(s): J43.9 - Emphysema, unspecified Category: Medical Code(s): J43.9 - Emphysema, unspecified (6) Hypothyroid: Status: Acute Qualifiers: Hypothyroidism type: unspecified Qualified Code(s): E03.9 - Hypothyroidism, unspecified Category: Medical Code(s): E03.9 - Hypothyroidism, unspecified (7) Hypertension: Status: Acute Qualifiers: Hypertension type: primary hypertension Qualified Code(s): I10 - Essential (primary) hypertension Category: Medical Code(s): I10 - Essential (primary) hypertension (8) PTSD (post-traumatic stress disorder): Status: Acute Category: Medical Code(s): F43.10 - Post-traumatic stress disorder, unspecified Plan 1. Chest pain/unstable angina with history of coronary artery disease and stenting -Troponins normal x 4 -Echo shows preserved ejection fraction -EKG showed sinus rhythm 84 bpm, possible prior inferior FL, poor R wave progression anteriorly but no acute ST segment changes -Cardiac status seems stable with no plans for further testing at this time Continue Imdur, ranolazine, carvedilol, amlodipine, Plavix and statin 2. Tobacco use with COPD/emphysema -Cessation recommend 3. Hypothyroidism, on replacement therapy 4. Hypertension -Not to goal -Will adjust medications 5. Hyperlipidemia -On statin therapy with LDL 73 and HDL 70 6. History of CVA with mild left facial droop, on Plavix therapy 7. History of iron deficiency, on replacement therapy 8. PTSD Clinically stable from a cardiac standpoint for discharge home. Follow-up in our office in 2 weeks. Home medication recommendations: Plavix 75 mg daily Amiodarone 200 mg daily Amlodipine 10 mg daily Atorvastatin 80 mg daily Carvedilol 6.25 mg twice daily (new dose) Isosorbide mononitrate 60 mg daily Lisinopril 20 mg daily Ranolazine 500 mg twice daily
[2025-05-04 09:33] VITALS: BP 147/89; PULSE 73; RESP 18; TEMP 36; O2SAT 94
--- NOTE | 2025-05-04 10:42 | SW/DCPLANNER ---
Patient currently resides at [facility]. Per MD the plan is for patient to return today. I have updated Rizwana solares/ [facility]. CM will arrange [facility] once ready for discharge.
--- NOTE | 2025-05-04 10:48 | EXP.DC.SUM ---
General Admission date:: 05/03/25 Discharge date: 05/04/25 HPI HPI HPI: 54-year-old patient with past medical history of emphysema, CHF, CKD, CT x 14 most recent July 2023, CAD with 10 stents, hypertension, hyperlipidemia, hypothyroidism. Patient presents complaining of chest discomfort. Patient currently lives at home with intermediate, and stated that chest discomfort occurred around 7 PM. Describes chest discomfort as 9/10, stabbing, substernal, with radiation to right jaw. Patient took 1 nitro with some relief of chest discomfort. Chest discomfort then reoccurred, and patient took 2 additional nitros with little relief. Patient then asked facility to call EMS and was brought to hospital for evaluation. EKG without signs or symptoms of acute coronary syndrome. First set of troponin less than 0.0. Records review occurred overnight, and patient had last cardiac catheterization [place] 03/31/2024. States he gets medical care at [facility] in [place]. Called [facility] overnight, and patient primarily seen in the emergency room at that facility during most visits. Apparently treated at last year for stroke evaluation. Complains of hot/cold spells at home with sore throat over the past 2 days. States he suffers from shortness of breath during chest discomfort episode today. States he suffered from dark stools over the past 2 days. Also states that Tylenol, ibuprofen, Naprosyn caused angioedema. States he also suffers from allergies to Toradol, Ultram, BuSpar, and Zyprexa. Admits to father having myocardial infarction, but ultimately dying from stroke pathology. Takes aspirin/Plavix daily. Hospital Course Hospital Course Hospital Course: 54-year-old with past medical history of CT x 14, CAD with 10 stents, CKD, CHF, hypertension, hyperlipidemia, hypothyroidism, mood disorder. Patient presents complaining of chest pain and homicidal and also states he suffered from malaise/fever x 24 hours with dark stools x 2 days. Admitted for possible unstable angina. After further questioning and review of records obtained from outside hospital, appears patient had a heart cath 1 month ago in [place]. Cardiology evaluated. No plan for intervention at this time. Will have patient establish with their care though for future management. Symptoms overall doing better. Labs stable in the morning. Stable discharge back to his personal-nursing home. Problems addressed as follows: Unstable angina: ? Patient's chest discomfort unrelieved by nitro x 3 at home to intermediate. Admitted for cardiology eval. Serial troponins were less than 0.01. At this time no plan for any intervention. Continue aspirin 81 mg daily and Plavix 75 mg daily. Echo obtained showing preserved ejection fraction with no wall motion abnormalities. EKG shows sinus rhythm. Continue Imdur, ranolazine, carvedilol, amlodipine, Plavix and statin. Strongly encouraged to stop smoking given his tobacco use and emphysema/COPD. ? Called [facility] in [place] overnight, and learned that patient had cardiac catheterization done at [facility] 03/31/2025. Per [facility] staff, patient primarily visits that hospital for emergency room evaluations. [facility] staff also states patient admitted to last year for stroke evaluation. Will reach out to [facility] to obtain cath records. Will also reach out to for records of patient's hospitalization last year. Dark stools and patient on iron pills: ?Denies abdominal pain. Ordered guaiac overnight. Heme lobe and remained stable at 12.5. No active signs of bleeding. INR normal at 0.9. Continue iron supplementation at discharge. No indication for scope or further workup at this time. Referred to GI for follow-up as he reports history of gastritis/GERD and ulcerations. Continue PPI per home regimen. Hyperlipidemia: Atorvastatin 80 mg p.o. nightly Mood disorder: Fluphenazine 5 mg p.o. nightly GERD: Protonix 40 mg p.o. daily Emphysema: Trelogy 100 mcg/62.5 mcg / 24 mcg 1 puff inhaled daily Exam Data for Last 24 hours Vital signs and Labs for Last 24 Hours: Temp Pulse Resp BP Pulse Ox O2 Del Method 96.8 F L 73 18 147/89 H 94 L Room Air 05/04/25 09:33 05/04/25 09:33 05/04/25 09:33 05/04/25 09:05/04/25 09:05/04/25 09:33 Laboratory Results - last 24 hr 05/03/25 19:55: WBC 9.2, RBC 4.25 L, Hgb 12.0 L, Hct 35.6 L, MCV 83.8, MCH 28.2, MCHC 33.7, RDW 15.7, Plt Count 227, MPV 10.7 H, Neut % (Auto) 56.8, Lymph % (Auto) 31.2, [place] % (Auto) 9.8 H, Eos % (Auto) 1.3, Baso % (Auto) 0.5, Neut # (Auto) 5.2, Lymph # (Auto) 2.9, [place] # (Auto) 0.9, Eos # (Auto) 0.1, Baso # (Auto) 0.1, PT 10.3, INR 0.92, D-Dimer < 0.25, Sodium 138, Potassium 3.5, Chloride 106, Carbon Dioxide 27, Anion Gap 8.5, BUN 14, Creatinine 1.30 H, Estimated Creat Clear 84, Estimated GFR 58 L, Est GFR ( Amer) 70, Glucose 99, Calcium 9.9, Magnesium 2.0, Total Bilirubin 0.3, AST 27, ALT 11 L, Alkaline Phosphatase 79, Troponin I < 0.01, NT-Pro-B Natriuret Pep 156 H, Total Protein 7.2, Albumin 4.4, Globulin 2.8, Albumin/Globulin Ratio 1.6, Lipase 173 05/03/25 22:35: Troponin I < 0.01 05/04/25 01:52: Chlamy pneumoniae PCR Not detected, Adenovirus (PCR) Not detected, B. pertussis DNA (PCR) Not detected, Coronavirus OC43 (PCR) Not detected, Coronavirus HKU1 (PCR) Not detected, Coronavirus 229E (PCR) Not detected, SARS-CoV-2 (PCR) Not detected, Coronavirus NL63 (PCR) Not detected, Human Metapneumovir PCR Not detected, Influenza A (H1) PCR Not detected, Influ A (H1N1/09) PCR Not detected, Influenza A (H3) PCR Not detected, Influenza Type A (PCR) Not detected, Influenza Type B (PCR) Not detected, M. pneumoniae (PCR) Not detected, Parainfluenza 1 (PCR) Not detected, Parainfluenza 2 (PCR) Not detected, Parainfluenza 3 (PCR) Not detected, Parainfluenza 4 (PCR) Not detected, RSV (PCR) Not detected, Entero/Rhino (PCR) Not detected 05/04/25 02:32: Troponin I < 0.01 05/04/25 05:19: WBC 7.3, RBC 4.58 L, Hgb 12.5 L, Hct 39.0 L, MCV 85.2, MCH 27.3, MCHC 32.1, RDW 16.0, Plt Count 227, MPV 11.3 H, Neut % (Auto) 62.1, Lymph % (Auto) 25.7, [place] % (Auto) 10.6 H, Eos % (Auto) 0.8, Baso % (Auto) 0.4, Neut # (Auto) 4.5, Lymph # (Auto) 1.9, [place] # (Auto) 0.8, Eos # (Auto) 0.1, Baso # (Auto) 0.0, Sodium 140, Potassium 3.9, Chloride 107, Carbon Dioxide 28, Anion Gap 8.9, BUN 13, Creatinine 1.30 H, Estimated Creat Clear 83, Estimated GFR 58 L, Est GFR ( Amer) 70, Glucose 100, Calcium 9.7, Magnesium 2.1, Iron 69, TIBC 336, Iron Saturation 20.80636, Ferritin 18.5, Troponin I < 0.01, Triglycerides 109, Cholesterol 177, LDL Cholesterol Direct 73.12 L, VLDL Cholesterol 22, HDL Cholesterol 70 H, Cholesterol/HDL Ratio 2.5 I & O for Last 24 hours: Intake & Output 05/01/25 05/02/25 05/03/25 05/04/25 23:59 23:59 23:59 23:59 Intake Total 0 / 0 Balance 0 / 0 Weight 90.718 kg 89.494 kg Constitutional Constitutional: no acute distress, average body habitus, chronically ill appearing and cooperative *Routine HEENT Exam Head: Present normocephalic Eye: Present EOMI and PERRL ENT: Present mucous membranes moist *Routine Neck Exam Neck: Present supple; Absent lymphadenopathy Routine Chest/Breast/Axilla Exam Chest wall: Present tenderness (Along left sternal border) *Routine Respiratory Exam Respiratory: Present CTA bilaterally; Absent rhonchi, wheezes or crackles *Routine Cardiovascular Exam Cardiovascular: Present RRR *Routine Abdominal Exam Abdominal: Present soft and normoactive bowel sounds; Absent tenderness *Routine Rectal Exam Patient deferred: visual exam *Routine Exam Patient deferred: penile exam *Routine Extremities Exam Extremities: Absent cyanosis, clubbing or edema *Routine Skin Exam Skin: Present intact and warm; Absent rash *Routine Neurological Exam Neurological: Present alert, oriented X3 and moving all extremities; Absent altered mental status Routine Psychiatric Exam Psychiatric: Present cooperative; Absent good insight Results Data Completed and Pending Labs on day of discharge: Labs from last 24 hours 05/04/25 05/04/25 05/04/25 05:19 02:32 01:52 WBC 7.3 RBC 4.58 L Hgb 12.5 L Hct 39.0 L MCV 85.2 MCH 27.3 MCHC 32.1 RDW 16.0 Plt Count 227 MPV 11.3 H Neut % (Auto) 62.1 Lymph % (Auto) 25.7 [place] % (Auto) 10.6 H Eos % (Auto) 0.8 Baso % (Auto) 0.4 Neut # (Auto) 4.5 Lymph # (Auto) 1.9 [place] # (Auto) 0.8 Eos # (Auto) 0.1 Baso # (Auto) 0.0 PT INR D-Dimer Sodium 140 Potassium 3.9 Chloride 107 Carbon Dioxide 28 Anion Gap 8.9 BUN 13 Creatinine 1.30 H Estimated Creat Clear 83 Estimated GFR 58 L Est GFR ( Amer) 70 Glucose 100 Calcium 9.7 Magnesium 2.1 Iron 69 TIBC 336 Iron Saturation [id number] Ferritin 18.5 Total Bilirubin AST ALT Alkaline Phosphatase Troponin I < 0.01 < 0.01 NT-Pro-B Natriuret Pep Total Protein Albumin Globulin Albumin/Globulin Ratio Triglycerides 109 Cholesterol 177 LDL Cholesterol Direct 73.12 L VLDL Cholesterol 22 HDL Cholesterol 70 H Cholesterol/HDL Ratio 2.5 Lipase Chlamy pneumoniae PCR Not detected Adenovirus (PCR) Not detected B. pertussis DNA (PCR) Not detected Coronavirus OC43 (PCR) Not detected Coronavirus HKU1 (PCR) Not detected Coronavirus 229E (PCR) Not detected SARS-CoV-2 (PCR) Not detected Coronavirus NL63 (PCR) Not detected Human Metapneumovir PCR Not detected Influenza A (H1) PCR Not detected Influ A (H1N1/09) PCR Not detected Influenza A (H3) PCR Not detected Influenza Type A (PCR) Not detected Influenza Type B (PCR) Not detected M. pneumoniae (PCR) Not detected Parainfluenza 1 (PCR) Not detected Parainfluenza 2 (PCR) Not detected Parainfluenza 3 (PCR) Not detected Parainfluenza 4 (PCR) Not detected RSV (PCR) Not detected Entero/Rhino (PCR) Not detected 05/03/25 05/03/25 22:35 19:55 WBC 9.2 RBC 4.25 L Hgb 12.0 L Hct 35.6 L MCV 83.8 MCH 28.2 MCHC 33.7 RDW 15.7 Plt Count 227 MPV 10.7 H Neut % (Auto) 56.8 Lymph % (Auto) 31.2 [place] % (Auto) 9.8 H Eos % (Auto) 1.3 Baso % (Auto) 0.5 Neut # (Auto) 5.2 Lymph # (Auto) 2.9 [place] # (Auto) 0.9 Eos # (Auto) 0.1 Baso # (Auto) 0.1 PT 10.3 INR 0.92 D-Dimer < 0.25 Sodium 138 Potassium 3.5 Chloride 106 Carbon Dioxide 27 Anion Gap 8.5 BUN 14 Creatinine 1.30 H Estimated Creat Clear 84 Estimated GFR 58 L Est GFR ( Amer) 70 Glucose 99 Calcium 9.9 Magnesium 2.0 Iron TIBC Iron Saturation Ferritin Total Bilirubin 0.3 AST 27 ALT 11 L Alkaline Phosphatase 79 Troponin I < 0.01 < 0.01 NT-Pro-B Natriuret Pep 156 H Total Protein 7.2 Albumin 4.4 Globulin 2.8 Albumin/Globulin Ratio 1.6 Triglycerides Cholesterol LDL Cholesterol Direct VLDL Cholesterol HDL Cholesterol Cholesterol/HDL Ratio Lipase 173 Chlamy pneumoniae PCR Adenovirus (PCR) B. pertussis DNA (PCR) Coronavirus OC43 (PCR) Coronavirus HKU1 (PCR) Coronavirus 229E (PCR) SARS-CoV-2 (PCR) Coronavirus NL63 (PCR) Human Metapneumovir PCR Influenza A (H1) PCR Influ A (H1N1/09) PCR Influenza A (H3) PCR Influenza Type A (PCR) Influenza Type B (PCR) M. pneumoniae (PCR) Parainfluenza 1 (PCR) Parainfluenza 2 (PCR) Parainfluenza 3 (PCR) Parainfluenza 4 (PCR) RSV (PCR) Entero/Rhino (PCR) DS: Diagnosis Discharge Diagnosis (1) Unstable angina: Status: Acute Code(s): I20.0 - Unstable angina (2) Malaise: Status: Acute Code(s): R53.81 - Other malaise (3) Dark stools: Status: Acute Code(s): R19.5 - Other fecal abnormalities (4) CAD (coronary artery disease): Status: Acute Code(s): I25.10 - Atherosclerotic heart disease of [place] coronary artery without angina pectoris Qualifiers: Associated angina: with unstable angina Coronary Disease-Associated Artery/Lesion type: [place] artery [place] vs. transplanted heart: [place] heart Qualified Code(s): I25.110 - Atherosclerotic heart disease of [place] coronary artery with unstable angina pectoris (5) Emphysema/COPD: Status: Acute Code(s): J43.9 - Emphysema, unspecified Qualifiers: Emphysema type: unspecified Qualified Code(s): J43.9 - Emphysema, unspecified (6) Hypothyroid: Status: Acute Code(s): E03.9 - Hypothyroidism, unspecified Qualifiers: Hypothyroidism type: unspecified Qualified Code(s): E03.9 - Hypothyroidism, unspecified (7) Hypertension: Status: Acute Code(s): I10 - Essential (primary) hypertension Qualifiers: Hypertension type: primary hypertension Qualified Code(s): I10 - Essential (primary) hypertension (8) PTSD (post-traumatic stress disorder): Status: Acute Code(s): F43.10 - Post-traumatic stress disorder, unspecified Meds Home Medications and Allergies Home Medications ?Medication ?Instructions ?Recorded ?Confirmed ?Type amiodarone 200 mg tablet 200 mg PO DAILY 05/03/25 05/03/25 History amlodipine 10 mg tablet 10 mg PO DAILY 05/03/25 05/03/25 History atorvastatin 80 mg tablet 80 mg PO DAILY 05/03/25 05/03/25 History clopidogrel 75 mg tablet 75 mg PO DAILY 05/03/25 05/03/25 History duloxetine 60 mg capsule,delayed 60 mg PO DAILY 05/03/25 05/03/25 History release sprinkle ferrous sulfate 325 mg (65 mg 325 mg PO DAILY 05/03/25 05/03/25 History iron) tablet (FeroSul) fluphenazine HCl 5 mg tablet 5 mg PO DAILY 05/03/25 05/03/25 History fluticasone furoate 100 1 inh inhalation DAILY 05/03/25 05/03/25 History mcg/actuation blister powder for inhalation (Arnuity Ellipta) isosorbide mononitrate 60 mg 60 mg PO DAILY 05/03/25 05/03/25 History tablet,extended release 24 hr levothyroxine 200 mcg tablet 200 mcg PO DAILY 05/03/25 05/03/25 History lisinopril 20 mg tablet 20 mg PO DAILY 05/03/25 05/03/25 History nitroglycerin 0.4 mg sublingual 0.4 mg sublingual Q5M PRN Chest 05/03/25 05/03/25 History tablet Pain pantoprazole 40 mg granules 40 mg PO DAILY 05/03/25 05/03/25 History delayed-release for susp in packet prazosin 1 mg capsule 1 mg PO HS 05/03/25 05/03/25 History ranolazine 500 mg tablet,extended 500 mg PO BID 05/03/25 05/03/25 History release,12 hr tamsulosin 0.4 mg capsule 0.4 mg PO DAILY 05/03/25 05/03/25 History carvedilol 6.25 mg tablet 6.25 mg PO BID 30 days #60 tabs 05/04/25 Rx New Prescriptions to Start Prescriptions: Fawad Spencer Allergies Allergy/AdvReac Type Severity Reaction Status Date / Time acetaminophen (From Tylenol) Allergy Hives Verified 05/04/25 01:39 buspirone Allergy Unknown Verified 05/04/25 01:39 allergy reaction ibuprofen Allergy Rash Verified 05/04/25 01:39 ketorolac (From Toradol) Allergy Hives Verified 05/04/25 01:39 olanzapine (From Zyprexa) Allergy Unknown Verified 05/04/25 01:39 allergy reaction risperidone (From Risperdal) Allergy Unknown Verified 05/04/25 01:39 allergy reaction tramadol Allergy Hives Verified 05/04/25 01:39 ziprasidone (From Geodon) Allergy Unknown Verified 05/04/25 01:39 allergy reaction Discharge Plan Disposition Patient Disposition: Home, Self-Care Condition: Good Follow up Plan Follow up with: Phani Cortez II, MD [Staff Physician, Gastroenterology] - 05/25/25 1:30 pm Genna Lilly APRN [Nurse Practitioner, Medical] - 05/16/25 11:00 am Geraldo Velasco PA [Physician [employer] Trimmer, Cardiology] - 09/29/25 8:45 am Prescriptions/Medication Reconciliation: New carvedilol 6.25 mg Tablet 6.25 mg PO BID 30 Days Qty: 60 0RF Continued atorvastatin 80 mg Tablet 80 mg PO DAILY amiodarone 200 mg Tablet 200 mg PO DAILY prazosin 1 mg Capsule 1 mg PO HS lisinopril 20 mg Tablet 20 mg PO DAILY clopidogrel 75 mg Tablet 75 mg PO DAILY isosorbide mononitrate 60 mg Tablet Extended Release 24 Hr 60 mg PO DAILY tamsulosin 0.4 mg Capsule 0.4 mg PO DAILY amlodipine 10 mg Tablet 10 mg PO DAILY ferrous sulfate [FeroSul] 325 mg (65 mg iron) Tablet 325 mg PO DAILY levothyroxine 200 mcg Tablet 200 mcg PO DAILY fluphenazine HCl 5 mg Tablet 5 mg PO DAILY pantoprazole [address] For Susp In Packet 40 mg PO DAILY duloxetine 60 mg Capsule, Delayed Rel Sprinkle 60 mg PO DAILY nitroglycerin 0.4 mg Tablet, Sublingual 0.4 mg SUBLINGUAL Q5M PRN (Reason: Chest Pain) Rx Instructions: do not exceed 3 doses per episode ranolazine 500 mg Tablet Extended Release 12 Hr 500 mg PO BID fluticasone furoate [Arnuity Ellipta] 100 mcg/actuation Blister With Device 1 inh INHALATION DAILY Discontinued carvedilol 3.125 mg Tablet 3.125 mg PO BID Rx Instructions: must administer with a meal/food Problem Reconciliation Problems Reviewed?: Yes Patient Discharge Instructions ACTIVITY: Continue current activity DIET: continue same diet Patient Instructions: DI for Chest Pain Print Language: Mont[place]in Providers Primary Care Provider: Provider,Referral Admit Provider: Fawad Gruber Attending Provider: Fawad Gruber
[2025-05-04] MEDS: IPRATROPIUM/ALBUTEROL 3 ML NEB IH (11:10)
--- NOTE | 2025-05-04 11:21 | HMH.PTEV ---
Physical Therapy Evaluation Rehab PT IP Evaluation Start: 05/04/25 01:31 Freq: ONCE Status: Active Protocol: Document 05/04/25 11:18 MERLENE (Rec: 05/04/25 11:20 MERLENE [id number]) Subjective/History History History Per H&P: 54-year-old patient with past medical history of emphysema, CHF, CKD, [place] x 14 most recent July 2023, CAD with 10 stents, hypertension, hyperlipidemia, hypothyroidism. Patient presents complaining of chest discomfort. Patient currently lives at home with fdc, and stated that chest discomfort occurred around 7 PM. Describes chest discomfort as 9/10, stabbing, substernal, with radiation to right jaw. Patient took 1 nitro with some relief of chest discomfort. Chest discomfort then reoccurred, and patient took 2 additional nitros with little relief. Patient then asked facility to call EMS and was brought to hospital for evaluation. EKG without signs or symptoms of acute coronary syndrome. First set of troponin less than 0.0. Records review occurred overnight, and patient had last cardiac catheterization [place] 03/31/2024. States he gets medical care at [facility] in [place]. Called [facility] overnight, and patient primarily seen in the emergency room at that facility during most visits. Apparently treated at last year for stroke evaluation. Complains of hot/cold spells at home with sore throat over the past 2 days. States he suffers from shortness of breath during chest discomfort episode today. States he suffered from dark stools over the past 2 days. Also states that Tylenol, ibuprofen, Naprosyn caused angioedema. States he also suffers from allergies to Toradol, Ultram, BuSpar, and Zyprexa. Admits to father having myocardial infarction , but ultimately dying from stroke pathology. Takes aspirin/Plavix daily. Subjective Subjective Pt reports he lives at [place] and is IND with all mobility without an AD. New diagnosis of No cancer in past 12 months? [facility] How much help from another person do you currently need... Turning from your None back to your side while in a flat bed without using bedrails? Moving from lying on None back to sitting on the side of a flat bed without using bedrails? Moving to and from a None bed to a chair ( including a wheelchair)? Standing up from a None chair using your arms? (e.g., wheelchair, bedside chair) Walking in hospital None room? Climbing 3-5 steps None with a railing? Mobility Score 24 Mobility Level [facility] Mobility 8 Walk 250 feet or more Mobility Calculator Rehab PT IP Eval Objective Appearance Patient Behavior Appropriate,Cooperative Patient Orientation Person,Place Difficulty following none instructions Speech Pattern Clear Ambulation Patient Able to Yes Ambulate Ambulation Observation IP General Gait No Deviations/Normal Pattern Observation Ambulation Distance 30 (feet) Ambulation Assistive None Device Ambulation Ability Independent Transfers Bed Transfer Ability Independent Chair Transfer Independent Ability Rehab PT IP prob,goals,plan Problems Date of Evaluation: 05/04/25 Rehab Potential Rehab Potential Innapropriate for Skilled Therapy Discharge Plan PT Discharge Plan Pt appears to be at his baseline in functional mobility and would not benefit from skilled acute care PT. Eval Complexity Eval Charge Codes 58214 - Moderate Complexity PHYSICIAN CERTIFICATION: I certify the specified therapy services for Nav Escobar are required, authorized, and reviewed every 30 days.
[2025-05-04] MEDS: ONDANSETRON 4MG/2ML VIAL 4 MG IV (11:35)
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
--- NOTE | 2025-05-05 10:13 | SW/DCPLANNER ---
Patient is a resident at [facility]. Robert Ruggiero
[2025-05-05 14:30] LABS: Transferrin 282 mg/dL (177-329)
== END 2025-05-04 12:05 | disposition home or self-care (01) ==
LOC: ER 23:18 → 2ND 23:22
PROVIDERS: Internal Medicine; Physician Assistant; Admitting Provider Internal Medicine Adolescent Medicine; Emergency Provider Student in an Organized Health Care Education/Training Program; Visit Provider Internal Medicine Adolescent Medicine
DX: I25.110 Atherosclerotic heart disease of native coronary artery with unstable angina pectoris (principal); I13.0 Hypertensive heart and chronic kidney disease with heart failure and stage 1 through stage 4 chronic kidney disease, or unspecified chronic kidney disease; J43.9 Emphysema, unspecified; E03.9 Hypothyroidism, unspecified; F43.10 Post-traumatic stress disorder, unspecified; E78.5 Hyperlipidemia, unspecified; I16.0 Hypertensive urgency; I50.9 Heart failure, unspecified; F39 Unspecified mood [affective] disorder; D50.9 Iron deficiency anemia, unspecified; K21.9 Gastro-esophageal reflux disease without esophagitis; I69.392 Facial weakness following cerebral infarction; F17.200 Nicotine dependence, unspecified, uncomplicated; N18.9 Chronic kidney disease, unspecified; K27.9 Peptic ulcer, site unspecified, unspecified as acute or chronic, without hemorrhage or perforation; R19.5 Other fecal abnormalities; I25.2 Old myocardial infarction; Z95.5 Presence of coronary angioplasty implant and graft; Z88.5 Allergy status to narcotic agent; Z88.6 Allergy status to analgesic agent; Z88.8 Allergy status to other drugs, medicaments and biological substances; Z79.02 Long term (current) use of antithrombotics/antiplatelets; Z79.51 Long term (current) use of inhaled steroids; Z79.890 Hormone replacement therapy; Z79.899 Other long term (current) drug therapy
CPT/HCPCS: 0223U; 36415; 71045; 80048; 80053; 80061; 82728; 83540; 83550; 83690; 83735; 83880; 84466; 84484; 85025; 85378; 85610; 93005; 93306; 94640; 96374; 96375; 96376; 97162; 97166; 99285; G0378; J2270; J2405

== ENCOUNTER 2025-05-09 10:23 | Emergency (ER) | payer MEDICARE, SELFPAY ==
[2025-05-09] VITALS (10 sets, daily range): BP systolic 95–127; BP diastolic 51–88; PULSE 63–84; RESP 17–19; TEMP 36.7–37.1; O2SAT 91–96; BMI 29.5
--- NOTE | 2025-05-09 10:20 | XR_ITS ---
FINAL REPORT CLINICAL HISTORY: Shortness of breath and chest pain COMPARISON: 05/03/2025 FINDINGS: A portable view of the chest was obtained. Cardiac and mediastinal silhouettes are within normal limits. There are changes of emphysema. The lungs are otherwise clear. There is no pleural effusion or pneumothorax. IMPRESSION: No acute process on this portable exam. Reviewed, Interpreted and Dictated by Eneida Toure MD Transcribed by Lalita Arita Authenticated and . [facility]
--- NOTE | 2025-05-09 10:20 | ED_ITS ---
<Statement entered by Donn Martins MD - 05/09/25 16:35> I consulted the ANA, and we discussed the complexity of the problems being addressed. I approved the treatment and management plan for this patient's care in the emergency department, thus performing a substantial portion of the medical decision making. Franck Martins MD Discharge Plan Disposition Patient Disposition: Home, Self-Care Condition: Good Prescriptions Prescriptions: No Action atorvastatin 80 mg Tablet 80 mg PO DAILY amiodarone 200 mg Tablet 200 mg PO DAILY prazosin 1 mg Capsule 1 mg PO HS lisinopril 20 mg Tablet 20 mg PO DAILY clopidogrel 75 mg Tablet 75 mg PO DAILY isosorbide mononitrate 60 mg Tablet Extended Release 24 Hr 60 mg PO DAILY tamsulosin 0.4 mg Capsule 0.4 mg PO DAILY amlodipine 10 mg Tablet 10 mg PO DAILY ferrous sulfate [FeroSul] 325 mg (65 mg iron) Tablet 325 mg PO DAILY levothyroxine 200 mcg Tablet 200 mcg PO DAILY fluphenazine HCl 5 mg Tablet 5 mg PO DAILY pantoprazole [address] For Susp In Packet 40 mg PO DAILY duloxetine 60 mg Capsule, Delayed Rel Sprinkle 60 mg PO DAILY nitroglycerin 0.4 mg Tablet, Sublingual 0.4 mg SUBLINGUAL Q5M PRN (Reason: Chest Pain) Rx Instructions: do not exceed 3 doses per episode ranolazine 500 mg Tablet Extended Release 12 Hr 500 mg PO BID fluticasone furoate [Arnuity Ellipta] 100 mcg/actuation Blister With Device 1 inh INHALATION DAILY carvedilol 6.25 mg Tablet 6.25 mg PO BID 30 Days Qty: 60 0RF Referrals Follow up/Referrals: Delbert Larsen MD [Staff Physician, Cardiology] - See instructions Activity Restrictions/Add. Instructions Additional Instructions/Restrictions: Please follow-up with your primary care doctor and junior high math teacher in the upcoming days/weeks. Please return to the emergency department with any worsening signs or symptoms. Please continue to take all your medication as prescribed. Clinical Impressions Clinical Impression: Chest pain Instructions Patient Instructions: DI for Chest Pain, DI for Angina Print Language Print Language: B[place]udian Discharge ED Provider: Donn Martins HPI General Chief Complaint: Chest Pain Stated Complaint: MALLOY;CP;SOA Time Seen by Provider: 05/09/25 10:23 Mode of Arrival: EMS Source of Information: Patient and Medical Record History of Present Illness HPI narrative: 54-year-old male presents the emergency department via EMS from assisted living facility/homeless assisted for a 1 hour history of substernal chest pain on rating with associated shortness of breath, nausea no vomiting, patient denies any fever chills, admits to cough and congestion that is somewhat chronic for him for the last week, denies any constipation diarrhea melena hematochezia hematemesis or hemoptysis, denies any urinary type symptomatology, patient is a current everyday smoker, denies any alcohol or drug use, patient has other past medical history consistent with emphysema, CHF, CKD, prior inferior [place], coronary artery disease, with 10 coronary artery stents, most recent was in July 2023, hypertension hyperlipidemia hypothyroidism, was recently admitted to the hospitalist service on 05/03/2025 discharged on 05/04/2025, hospital course was for cardiac observation, cardiology was consulted, obtained a catheterization retrograde from outside hospital, in March 2025, thought that found no intervention and serial troponins were negative and patient's symptomatology improved, diagnosed with unstable angina discharged home on optimal medical management/therapy. Initial triage vitals are unremarkable. Of note, patient's pain currently is a 10 out of 10, maximal is a 10 out of 10. Please note that above description of symptoms, in this electronic medical record under categorization of recalled from ER triage doctor by RN are reflective of an initial nursing assessment, however, is not reflective of my full history and physical exam that was personally taken and clarified. Consequentially, this preceding description of symptoms, which may include the patient's categorized chief complaint in the EMR, do not reflect my personal clinical impression, and the ultimate description of history of present illness and patient stated complaints should be deferred to this section of the note. Unless stated otherwise or congruent with this section of the note, additional signs, symptoms, or incongruence should be interpreted as inaccurate with my clinical impression. MD complaint: chest pain Onset (ago): hour(s) Related Data Home Medications ?Medication ?Instructions ?Recorded ?Confirmed amiodarone 200 mg tablet 200 mg PO DAILY 05/03/25 amlodipine 10 mg tablet 10 mg PO DAILY 05/03/2504/18 atorvastatin 80 mg tablet 80 mg PO DAILY 05/03/2504/18 clopidogrel 75 mg tablet 75 mg PO DAILY 05/03/2504/18 duloxetine 60 mg capsule,delayed 60 mg PO DAILY 05/03/25 release sprinkle ferrous sulfate 325 mg (65 mg 325 mg PO DAILY 05/03/25 05/03/25 iron) tablet (FeroSul) fluphenazine HCl 5 mg tablet 5 mg PO DAILY 05/03/25 fluticasone furoate 100 1 inh inhalation DAILY 05/0305/03/25 mcg/actuation blister powder for inhalation (Arnuity Ellipta) isosorbide mononitrate 60 mg 60 mg PO DAILY 05/03/25 0 05/03/25 tablet,extended release 24 hr levothyroxine 200 mcg tablet 200 mcg PO DAILY 05/03/25 05/03/25 lisinopril 20 mg tablet 20 mg PO DAILY 05/03/2504/18 nitroglycerin 0.4 mg sublingual 0.4 mg sublingual Q5M PRN Chest 05/03/25 05/03/25 tablet Pain pantoprazole 40 mg granules 40 mg PO DAILY 05/03/25 delayed-release for susp in packet prazosin 1 mg capsule 1 mg PO HS 05/03/25 05/03/25 ranolazine 500 mg tablet,extended 500 mg PO BID 05/03/25 release,12 hr tamsulosin 0.4 mg capsule 0.4 mg PO DAILY 05/03/25 Previous Rx's ?Medication ?Instructions ?Recorded carvedilol 6.25 mg tablet 6.25 mg PO BID 30 days #60 t abs 05/04/25 Allergies Allergy/AdvReac Type Severity Reaction Status Date / Time acetaminophen (From Tylenol) Allergy Hives Verified 05/04/25 01:39 buspirone Allergy Unknown Verified 05/04/25 01:39 allergy reaction ibuprofen Allergy Rash Verified 05/04/25 01:39 ketorolac (From Toradol) Allergy Hives Verified 05/04/25 01:39 olanzapine (From Zyprexa) Allergy Unknown Verified 05/04/25 01:39 allergy reaction risperidone (From Risperdal) Allergy Unknown Verified 05/04/25 01:39 allergy reaction tramadol Allergy Hives Verified 05/04/25 01:39 ziprasidone (From Geodon) Allergy Unknown Verified 05/04/25 01:39 allergy reaction [facility] Disclaimer: The information contained in this section may have been updated after the patient was seen, as this information can be updated by other users. Medical History (Updated 05/09/25 @ 14:15 by VERNELL [employer]) Stress bladder incontinence, male Pneumonia Emphysema/COPD History of transient ischemic attack (TIA) Colonoscopy planned Stomach ulcer Hypothyroid Congestive heart failure Hypertension Tonsillectomy planned Cholecystectomy planned Spinal stenosis History of left heart catheterization PTSD (post-traumatic stress disorder) Surgical History (Updated 05/04/25 @ 01:31 by Vanessa Carter RN) H/O adenoidectomy H/O heart artery stent H/O spinal fusion Social History (Updated 05/04/25 @ 01:31 by Vanessa Carter RN) Smoking Status: Current every day smoker alcohol intake: former current occupational status: other Travel in the last 8 weeks?: None Have you lived/traveled outside [place] in past 30 days?: No Contact w/someone who lives/traveled outside US past 30 days?: No Exposure to someone with infectious disease in past 14 days?: No Do you have a fever (greater than 100.4 F or 38 C)?: No Have you tested positive for COVID-19?: No Exposed to someone with COVID-19 in past 14 days?: No Do you have a sore throat?: No Do you have a cough?: No Do you have any weakness?: No Do you have any diarrhea?: No Are you experiencing any unusual bleeding?: No Do you have any muscle aches/pain?: No Do you have any abdominal pain?: No Are you experiencing loss of taste or smell?: No Other Medical History Have you received the Flu Vaccine for this season: No Have you received the Pneumonia Vaccine: No ROS Obtained: Yes All systems reviewed & no additional complaints except as documented Physical Exam General General appearance: alert and in no apparent distress Head Head exam: atraumatic and normocephalic Eye Eye exam: Present normal appearance, PERRL and EOMI Neck Neck exam: Present full ROM; Absent meningismus Chest Chest inspection: Present normal inspection Respiratory Respiratory exam: Present wheezes and other (Mild to moderate wheezes heard throughout bilateral lung bullock); Absent respiratory distress, stridor, accessory muscle use or prolonged expiratory phase Cardiovascular Cardiovascular exam: Present normal rhythm and other (Pulses equal and symmetric in bilateral upper and lower extremities) Abdominal Exam Abdominal exam: Absent distention, tenderness, guarding, rebound or organomegaly Extremities Exam Extremities exam: Absent edema Neurological Exam Neurological exam: Present alert Psychiatric Psychiatric exam: Present normal affect Skin Skin exam: Present warm and dry HEART Score HEART Score HEART Score assessment performed?: Yes History (anamnesis): Slightly suspicious ECG: Normal Age: 45-65 years Risk factors: 3 or more risk factors Troponin: </= normal limit HEART Score: 3 Critical Care Critical Care Time Critical Care Time: No Medical Decision Making Medical Records Medical records reviewed: Yes I reviewed the patient's medical records. Jar[place]o Inquiry Pt receiving controlled substance: Yes Jar[place]o was queried for this patient: No Reason not queried -: Emergent pt cond-no time Risks and benefits of using a controlled substance: were discussed with pt by me Vital Signs Vital Signs: 05/09/25 10:01 05/09/25 10:53 05/09/25 11:00 Temperature 98.7 F Temperature Source Oral Pulse Rate 66 Pulse Rate [Apical] 84 Respiratory Rate 18 18 Blood Pressure 96/51 L 95/55 L Blood Pressure [Right Arm] 118/88 Blood Pressure Mean 58 62 Blood Pressure Mean [Right Arm] 98 Blood Pressure Source [Right Arm] Automatic Cuff Blood Pressure Position [Right Arm] Sitting 02 Sat by Pulse Oximetry 96 92 L Oxygen Delivery Method Room Air 05/09/25 11:20 05/09/25 12:20 05/09/25 12:41 Temperature Temperature Source Pulse Rate 63 64 64 Pulse Rate [Apical] Respiratory Rate 18 19 19 Blood Pressure 98/53 L 104/59 L 104/60 L Blood Pressure [Right Arm] Blood Pressure Mean 61 Blood Pressure Mean [Right Arm] Blood Pressure Source [Right Arm] Blood Pressure Position [Right Arm] 02 Sat by Pulse Oximetry 92 L 91 L 93 L Oxygen Delivery Method 05/09/25 13:02 05/09/25 13:40 05/09/25 14:00 Temperature Temperature Source Pulse Rate 71 Pulse Rate [Apical] Respiratory Rate 19 17 Blood Pressure 124/76 127/82 124/75 Blood Pressure [Right Arm] Blood Pressure Mean 92 Blood Pressure Mean [Right Arm] Blood Pressure Source [Right Arm] Blood Pressure Position [Right Arm] 02 Sat by Pulse Oximetry 91 L Oxygen Delivery Method Lab Data Lab results reviewed: Yes I reviewed the patient's lab results. Labs: Lab Results 05/09/25 10:20: WBC 6.4, RBC 4.87, Hgb 13.5 L, Hct 42.0, MCV 86.2, MCH 27.7, MCHC 32.1, RDW 16.2, Plt Count 297, MPV 10.0, Neut % (Auto) 56.3, Lymph % (Auto) 25.1, Sargent % (Auto) 14.3 H, Eos % (Auto) 2.4, Baso % (Auto) 1.3, Neut # (Auto) 3.6, Lymph # (Auto) 1.6, Sargent # (Auto) 0.9, Eos # (Auto) 0.2, Baso # (Auto) 0.1, PT 10.3, INR 0.92, Sodium 139, Potassium 4.4, Chloride 102, Carbon Dioxide 30, Anion Gap 11.4, BUN 12, Creatinine 1.50 H, Estimated Creat Clear 73, Estimated GFR 49 L, Est GFR ( Amer) 59, Glucose 113 H, Calcium 10.1, Magnesium 2.3, Total Bilirubin 0.4, AST 37, ALT 21, Alkaline Phosphatase 113, Troponin I < 0.01, NT-Pro-B Natriuret Pep 112, Total Protein 7.8, Albumin 4.6, Globulin 3.2, Albumin/Globulin Ratio 1.4, HCV Ab NELLA w/Rflx PCR Qn Reactive, HIV Ag/Ab Combo Qual Negative 05/09/25 13:39: Troponin I < 0.01 05/09/25 10:20 05/09/25 10:20 Response Orders (Tests/Meds): ED MEDICATIONS Generic Name Dose Route Start Last Admin Trade Name Freq PRN Reason Stop Dose Admin Nitroglycerin 0.4 mg 05/09/25 10:32 05/09/25 10:37 Nitroglycerin 0.4mg Sl Tablet SL 06/08/25 10:31 0.4 mg Q5MINP PRN Administration Chest Pain Discontinued Medications Generic Name Dose Route Start Last Admin Trade Name Freq PRN Reason Stop Dose Admin Albuterol/Ipratropium 6 ml 05/09/25 13:17 05/09/25 13:21 Ipratropium/Albuterol 3 Ml Neb IH 05/09/25 13:18 6 ml ONCE ONE Administration Aspirin 324 mg 05/09/25 10:34 05/09/25 10:37 Aspirin 81mg Chewable Tablet PO 05/09/25 10:35 324 mg ONCE ONE Administration Morphine Sulfate 4 mg 05/09/25 10:27 05/09/25 10:37 Morphine 4mg/Ml Syringe IV 05/09/25 10:28 4 mg ONCE ONE Administration Morphine Sulfate 2 mg 05/09/25 13:09 05/09/25 13:21 Morphine 2mg/Ml Syringe IV 05/09/25 13:10 2 mg ONCE ONE Administration Ondansetron HCl 4 mg 05/09/25 10:27 05/09/25 10:37 Ondansetron 4mg/2ml Vial IV 05/09/25 10:28 4 mg ONCE ONE Administration ORDERS Category Date Time Status XR chest portable Stat Exams 05/09/25 10:20 Completed Complete Blood Count Auto Diff Stat Lab 05/09/25 10:20 Completed Comprehensive Metabolic Panel Stat Lab 05/09/25 10:20 Completed HCV RNA PCR, Quant Stat Lab 05/09/25 10:20 Received HIV Combo Stat Lab 05/09/25 10:20 Completed Hepatitis C Ab Qual. W/ RFX Stat Lab 05/09/25 10:20 Completed Magnesium Stat Lab 05/09/25 10:20 Completed NT Pro Brain Natriuretic Pep. Stat Lab 05/09/25 10:20 Completed PT INR [Prothrombin Time INR] Stat Lab 05/09/25 10:20 Completed Troponin I Q3H Lab 05/09/25 13:39 Completed Troponin I Q3H Lab 05/09/25 16:30 Ordered Troponin I Stat Lab 05/09/25 10:20 Completed MDM Narrative Medical Decision Narrative: 54-year-old male presents the emergency department with chest pain via EMS substernal nonradiating with shortness of breath and nausea for 1 hour, differential diagnose include but not limited to, ACS, cardiac arrhythmia, electrolyte disturbance, costochondritis, pneumonia, pneumothorax, COPD exacerbation among others. I discussed this patient case with the attending physician Dr. Martins he saw and examined the patient as well Will obtain basic laboratory studies, EKG, chest x-ray, magnesium level proBNP PT/INR, troponin, will give 324 mg p.o. aspirin as patient is already taking 81 mg p.o. aspirin as well as Plavix at home today, will give 0.4 mg p.o. nitroglycerin, and give 4 mg IV morphine for pain and 4 mg IV Zofran for nausea, CBC unremarkable Coags within normal limits CMP is noted for mild creatinine elevation 1.5, appears to be mildly elevated outside the patient's baseline CKD. Initial troponin is less than 0.01, proBNP within normal limits. I along with the attending physician reviewed the patient's EKG, at approximately 10:24 PM, NSR at 81 bpm RI interval within was, QT interval within normal limits, prior inferior [place], with Q waves in 2 and aVF, there is no ST segment changes or elevation, no STEMI. I reviewed the patient's chest x-ray along the corresponding radiologic report, no acute process on portable exam. Patient states he is still having chest pain according to nursing staff, at around 1:08 PM, will give 2 mg IV morphine for pain, also of note, patient is requesting nebulizer , patient states he feels short of breath, patient had diffuse wheezes noted on exam, does have past medical history of COPD, thus will give DuoNeb 6 mL per nursing staff. Repeat troponin is less than 0.01. Reexamination of the patient at approximately 2:10 PM, patient states he is feeling much better, chest pain is improving, patient is cleared to be discharged home to self-care, shared decision-making was utilized, patient has slated follow-up with cardiology in the upcoming days. Continue to take medication as prescribed. Patient voiced understanding and agreement with current treatment plan/discharge plan. Strict ED return precaution given.
[2025-05-09 10:28] LABS: Hematocrit 42.0 % (42.0-52.0); Hemoglobin 13.5 g/dL (14.1-18.0); Immature Granulocytes % 0.6 %; Mean Corpuscular HGB Conc 32.1 g/dL (31.8-35.4); Mean Corpuscular Hemoglobin 27.7 pg (27.0-31.2); Mean Corpuscular Volume 86.2 fl (80-94); Nucleated Red Blood Cells % 0 %; Platelet Count 297 K/mm3 (142-424); Red Blood Count 4.87 M/mm3 (4.60-6.20); Red Cell Distribution Width-SD 51.2 fL; White Blood Count 6.4 K/mm3 (4.8-10.8)
--- NOTE | 2025-05-09 10:32 | PC.NURSE ---
XR AT BEDSIDE
[2025-05-09] MEDS: ONDANSETRON 4MG/2ML VIAL 4 MG IV (10:37)
[2025-05-09] MEDS: MORPHINE 4MG/ML SYRINGE 4 MG IV (10:37)
[2025-05-09] MEDS: ASPIRIN 81MG CHEWABLE TABLET 324 MG PO (10:37)
[2025-05-09] MEDS: NITROGLYCERIN 0.4MG SL TABLET 0.4 MG SL (10:37)
[2025-05-09 10:38] LABS: INR 0.92 (0.9-1.1); Prothrombin Time 10.3 seconds (10.1-12.5)
[2025-05-09 10:39] LABS: Albumin Level 4.6 g/dl (3.5-5.0); Chloride 102 mmol/L (98-107); Potassium 4.4 mmoL/L (3.5-5.1); Sodium 139 mmol/L (136-145)
[2025-05-09 10:42] LABS: Alanine Aminotransferase 21 U/L (12-78); Albumin/Globulin Ratio 1.4 (1.1-1.8); Alkaline Phosphatase 113 U/L (38-126); Anion Gap 11.4 mEq/L (5-15); Aspartate Amino Transferase 37 U/L (17-59); Bilirubin,Total 0.4 mg/dl (0.2-1.3); Blood Urea Nitrogen 12 mg/dl (9-20); Calcium 10.1 mg/dl (8.4-10.2); Carbon Dioxide 30 mmol/L (22.0-30.0); Creatinine Clearance Estimated 73 mL/min (50-200); Creatinine,Serum 1.50 mg/dl (0.66-1.25); Estimated Glomerular Filt Rate 49 ml/min (>60); GFR (African American) 59 ML/MIN (>60); Globulin 3.2 g/dL (1.3-3.2); Glucose 113 mg/dl (74-100); Total Protein,Serum 7.8 g/dl (6.3-8.2)
[2025-05-09 10:43] LABS: Magnesium 2.3 mg/dl (1.6-2.3)
--- NOTE | 2025-05-09 10:44 | PC.NURSE ---
PT MEDICATED PER EMAR, PILLOW PROVIDED AND CALL LIGHT WITHIN REACH. PT REPORTS DECREASE IN PAIN AFTER NITRO AT THIS TIME. B/P 105/49, PROVIDER NOTIFIED
[2025-05-09 10:52] LABS: NT Pro Brain Natriuretic Pep. 112 pg/mL (0-125)
[2025-05-09 11:03] LABS: Troponin I < 0.01 ng/ml (0.00-0.034)
--- NOTE | 2025-05-09 11:06 | PC.NURSE ---
PT PROVIDED WARM BLANKET
[2025-05-09 12:01] LABS: Hepatitis C Ab Qual. W/ RFX REACTIVE (Negative)
[2025-05-09] MEDS: MORPHINE 2MG/ML SYRINGE 2 MG IV (13:21)
[2025-05-09] MEDS: IPRATROPIUM/ALBUTEROL 3 ML NEB 6 ML IH (13:21)
[2025-05-09 14:07] LABS: Troponin I < 0.01 ng/ml (0.00-0.034)
--- NOTE | 2025-05-09 14:15 | PC.NURSE ---
REPORT CALLED TO ALEKS MARTIN [facility]
== END 2025-05-09 14:24 | disposition home or self-care (01) ==
PROVIDERS: Physician Assistant; Emergency Provider Student in an Organized Health Care Education/Training Program
DX: R07.9 Chest pain, unspecified (principal); R06.02 Shortness of breath; F17.210 Nicotine dependence, cigarettes, uncomplicated; J44.9 Chronic obstructive pulmonary disease, unspecified; I11.0 Hypertensive heart disease with heart failure; I50.9 Heart failure, unspecified; Z86.79 Personal history of other diseases of the circulatory system; Z95.5 Presence of coronary angioplasty implant and graft
CPT/HCPCS: 71045; 80053; 83735; 83880; 84484; 85025; 85610; 86803; 87389; 87522; 93005; 96374; 96375; 96376; 99285; J2270; J2405

== ENCOUNTER 2025-05-11 04:19 | Emergency (ER) | payer MEDICARE, SELFPAY ==
[2025-05-11] VITALS (9 sets, daily range): BP systolic 125–139; BP diastolic 59–94; PULSE 66–81; RESP 12–21; TEMP 36.6–37; O2SAT 91–99; BMI 28.7
--- NOTE | 2025-05-11 04:05 | XR_ITS ---
PROCEDURE INFORMATION: Exam: XR Chest Exam date and time: 05/11/2025 4:14 AM Age: 54 years old Clinical indication: Pain; Chest pressure TECHNIQUE: Imaging protocol: Radiologic exam of the chest. Views: 2 views. COMPARISON: CR XR CHEST PORTABLE 05/03/2025 8:25 PM FINDINGS: Lungs: Mild hyperinflation. No consolidation. Pleural spaces: Unremarkable. No pleural effusion. No pneumothorax. Heart/Mediastinum: Unremarkable. No cardiomegaly. Bones/joints: Unremarkable. IMPRESSION: No acute findings.
--- NOTE | 2025-05-11 04:08 | [facility].EDCP ---
Discharge Plan Disposition Patient Disposition: Home, Self-Care Prescriptions Prescriptions: No Action atorvastatin 80 mg Tablet 80 mg PO DAILY amiodarone 200 mg Tablet 200 mg PO DAILY prazosin 1 mg Capsule 1 mg PO HS lisinopril 20 mg Tablet 20 mg PO DAILY clopidogrel 75 mg Tablet 75 mg PO DAILY isosorbide mononitrate 60 mg Tablet Extended Release 24 Hr 60 mg PO DAILY tamsulosin 0.4 mg Capsule 0.4 mg PO DAILY amlodipine 10 mg Tablet 10 mg PO DAILY ferrous sulfate [FeroSul] 325 mg (65 mg iron) Tablet 325 mg PO DAILY levothyroxine 200 mcg Tablet 200 mcg PO DAILY fluphenazine HCl 5 mg Tablet 5 mg PO DAILY pantoprazole [address] For Susp In Packet 40 mg PO DAILY duloxetine 60 mg Capsule, Delayed Rel Sprinkle 60 mg PO DAILY nitroglycerin 0.4 mg Tablet, Sublingual 0.4 mg SUBLINGUAL Q5M PRN (Reason: Chest Pain) Rx Instructions: do not exceed 3 doses per episode ranolazine 500 mg Tablet Extended Release 12 Hr 500 mg PO BID fluticasone furoate [Arnuity Ellipta] 100 mcg/actuation Blister With Device 1 inh INHALATION DAILY carvedilol 6.25 mg Tablet 6.25 mg PO BID 30 Days Qty: 60 0RF Referrals Follow up/Referrals: Provider,Referral, [Primary Care Provider, Medical] - See instructions Activity Restrictions/Add. Instructions Additional Instructions/Restrictions: Follow-up with the cardiology team on the as scheduled. Take your medications as prescribed. If you develop any new or worsening symptoms, or if you become concerned for your help for any reason, return to the emergency department for evaluation Clinical Impressions Clinical Impression: Chest pain Print Language Print Language: Spanish Discharge ED Provider: Sasha Calabrese HPI <Sasha Calabrese MD - Last Filed: 05/11/25 06:53> General Chief Complaint: Chest Pain Stated Complaint: Chest Pain Time Seen by Provider: 05/11/25 04:19 History of Present Illness HPI narrative: 54-year-old male with self-reported extensive cardiac history reportedly 14 MIs and at least 10 stents presents to the ER with chest pain that reportedly started 30 minutes to an hour prior to arrival. Patient reports stabbing left-sided chest pain. He reports he requested nitro at [facility] where he resides but they would not give it to him. He states he took his albuterol inhaler last immediately before EMS showed up. He has a history of emphysema and COPD as well as TIA, hypertension, hypothyroid. He reports mild nausea, chronic back pain, no other associated symptoms. No cough or congestion. He denies a sensation of shortness of breath. No swelling in the feet or legs. No fevers or chills. No headache or dizziness, no numbness, tingling, or weakness, no other complaints or concerns at this time. When asked to describe his pain he reported it was stabbing. I reassured the patient that typically stabbing pain is not indicative of cardiac etiology, and he immediately changed the story stating well actually it feels like an elephant sitting on my chest . When I told him I needed to know whether it was stabbing or like a weight on his chest, he stated it feels like a weight on his chest. Patient reports he was admitted a week ago and they did not find anything . Review of records demonstrate he was also here 2 days ago for the same complaints. He has had reassuring workups every time. Review of cardiology note from 05/04/2025 when patient was admitted demonstrates patient had an echo with preserved ejection fraction, possible previous inferior AL with poor R wave progression in the anterior leads but no acute ST changes, note states cardiac status seems stable with no plans for further testing at this time . It was recommended that he stop smoking, continue Imdur, ranolazine, carvedilol, amlodipine, Plavix, and his statin. Plan from cardiology was to follow-up in office in 2 weeks. ER records from visit 2 days ago demonstrates negative serial troponins and benign workup otherwise. Related Data Home Medications ?Medication ?Instructions ?Recorded ?Confirmed amiodarone 200 mg tablet 200 mg PO DAILY 05/03/25 05/03/25 amlodipine 10 mg tablet 10 mg PO DAILY 05/03/25 05/03/25 atorvastatin 80 mg tablet 80 mg PO DAILY 05/03/25 05/03/25 clopidogrel 75 mg tablet 75 mg PO DAILY 05/03/25 05/03/25 duloxetine 60 mg capsule,delayed 60 mg PO DAILY 05/03/25 05/03/25 release sprinkle ferrous sulfate 325 mg (65 mg 325 mg PO DAILY 05/03/25 05/03/25 iron) tablet (FeroSul) fluphenazine HCl 5 mg tablet 5 mg PO DAILY 05/03/25 05/03/25 fluticasone furoate 100 1 inh inhalation DAILY 05/03/25 05/03/25 mcg/actuation blister powder for inhalation (Arnuity Ellipta) isosorbide mononitrate 60 mg 60 mg PO DAILY 05/03/25 05/03/25 tablet,extended release 24 hr levothyroxine 200 mcg tablet 200 mcg PO DAILY 05/03/25 05/03/25 lisinopril 20 mg tablet 20 mg PO DAILY 05/03/25 05/03/25 nitroglycerin 0.4 mg sublingual 0.4 mg sublingual Q5M PRN Chest 05/03/25 05/03/25 tablet Pain pantoprazole 40 mg granules 40 mg PO DAILY 05/03/25 05/03/25 delayed-release for susp in packet prazosin 1 mg capsule 1 mg PO HS 05/03/25 05/03/25 ranolazine 500 mg tablet,extended 500 mg PO BID 05/03/25 05/03/25 release,12 hr tamsulosin 0.4 mg capsule 0.4 mg PO DAILY 05/03/25 05/03/25 Previous Rx's ?Medication ?Instructions ?Recorded carvedilol 6.25 mg tablet 6.25 mg PO BID 30 days #60 tabs 05/04/25 Allergies Allergy/AdvReac Type Severity Reaction Status Date / Time acetaminophen (From Tylenol) Allergy Hives Verified 05/04/25 01:39 buspirone Allergy Unknown Verified 05/04/25 01:39 allergy reaction ibuprofen Allergy Rash Verified 05/04/25 01:39 ketorolac (From Toradol) Allergy Hives Verified 05/04/25 01:39 olanzapine (From Zyprexa) Allergy Unknown Verified 05/04/25 01:39 allergy reaction risperidone (From Risperdal) Allergy Unknown Verified 05/04/25 01:39 allergy reaction tramadol Allergy Hives Verified 05/04/25 01:39 ziprasidone (From Geodon) Allergy Unknown Verified 05/04/25 01:39 allergy reaction PFSH <Sasha Calabrese MD - Last Filed: 05/11/25 06:53> [facility] Disclaimer: The information contained in this section may have been updated after the patient was seen, as this information can be updated by other users. Medical History (Updated 05/11/25 @ 08:02 by Geraldo Kilpatrick MD) Stress bladder incontinence, male Pneumonia Emphysema/COPD History of transient ischemic attack (TIA) Colonoscopy planned Stomach ulcer Hypothyroid Congestive heart failure Hypertension Tonsillectomy planned Cholecystectomy planned Spinal stenosis History of left heart catheterization PTSD (post-traumatic stress disorder) Surgical History (Updated 05/04/25 @ 01:31 by Vanessa Carter, RN) H/O adenoidectomy H/O heart artery stent H/O spinal fusion Social History (Updated 05/04/25 @ 01:31 by Vanessa Carter, RN) Smoking Status: Current every day smoker alcohol intake: former current occupational status: other Travel in the last 8 weeks?: None Other Medical History Have you received the Flu Vaccine for this season: No Have you received the Pneumonia Vaccine: No <Sasha Calabrese MD - Last Filed: 05/11/25 06:53> ROS Obtained: Yes Systems reviewed as appropriate & no additional complaints except as documented Per HPI Physical Exam <Sasha Calabrese MD - Last Filed: 05/11/25 06:53> General General appearance: alert and in no apparent distress Head Head exam: atraumatic and normocephalic Eye Eye exam: Present PERRL and EOMI ENT ENT exam: Present mucous membranes moist Neck Neck exam: Present normal inspection and full ROM Chest Chest inspection: Present symmetric chest wall rise Respiratory Respiratory exam: Present normal lung sounds bilaterally, wheezes (Expiratory throughout bilateral lung bullock) and other (Saturating 92%-94% on room air); Absent respiratory distress, stridor or accessory muscle use Cardiovascular Cardiovascular exam: Present regular rate and normal rhythm Abdominal Exam Abdominal exam: Present soft; Absent distention, tenderness, guarding or rebound Extremities Exam Extremities exam: Present full ROM; Absent edema Neurological Exam Neurological exam: Present alert and oriented X3; Absent motor sensory deficit Psychiatric Psychiatric exam: Present normal affect and normal mood Skin Skin exam: Present warm and dry HEART Score <Sasha Calabrese MD - Last Filed: 05/11/25 06:53> HEART Score HEART Score assessment performed?: Yes History (anamnesis): Slightly suspicious ECG: Non-specific disturbance Age: 45-65 years Risk factors: Atherosclerosis history Troponin: </= normal limit HEART Score: 4 <Geraldo Kilpatrick MD - Last Filed: 05/11/25 08:07> HEART Score HEART Score: 4 Critical Care <Sasha Calabrese MD - Last Filed: 05/11/25 06:53> Critical Care Time Critical Care Time: No Medical Decision Making <Sasha Calabrese MD - Last Filed: 05/11/25 06:53> Medical Records Medical records reviewed: Yes I reviewed the patient's medical records. [place] Inquiry Pt receiving controlled substance: No Vital Signs Vital Signs: 05/11/25 04:06 05/11/25 04:06 05/11/25 04:16 Temperature 98.6 F Temperature Source Oral Pulse Rate 80 80 Pulse Rate [Right] 80 Respiratory Rate 16 16 Blood Pressure 139/94 H Blood Pressure [Right Arm] 139/94 H Blood Pressure Mean Blood Pressure Mean [Right Arm] 109 02 Sat by Pulse Oximetry 94 L 94 L Oxygen Delivery Method Room Air Room Air 05/11/25 04:30 05/11/25 04:32 05/11/25 04:41 Temperature Temperature Source Pulse Rate 81 81 81 Pulse Rate [Right] Respiratory Rate 19 13 12 Blood Pressure 135/82 135/82 133/82 Blood Pressure [Right Arm] Blood Pressure Mean 99 93 Blood Pressure Mean [Right Arm] 02 Sat by Pulse Oximetry 91 L 93 L 91 L Oxygen Delivery Method Room Air 05/11/25 04:46 05/11/25 05:31 05/11/25 06:24 Temperature Temperature Source Pulse Rate 80 66 69 Pulse Rate [Right] Respiratory Rate 17 19 21 Blood Pressure 133/82 138/77 125/59 L Blood Pressure [Right Arm] Blood Pressure Mean 107 Blood Pressure Mean [Right Arm] 02 Sat by Pulse Oximetry 95 93 L 92 L Oxygen Delivery Method Room Air Room Air Lab Data Labs: Lab Results 05/11/25 04:13: VBG pH 7.49 H, VBG pCO2 36.2, VBG pO2 58.9 H, VBG HCO3 27.0, VBG Total CO2 28.1 H, VBG O2 Saturation 93.0 H, VBG Base Excess 3.7 H, VBG Lactic Acid 1.1 05/11/25 04:15: WBC 7.1, RBC 4.57 L, Hgb 12.9 L, Hct 39.3 L, MCV 86.0, MCH 28.2, MCHC 32.8, RDW 16.2, Plt Count 314, MPV 10.5 H, Neut % (Auto) 51.3, Lymph % (Auto) 34.0, Placer % (Auto) 10.9 H, Eos % (Auto) 2.5, Baso % (Auto) 1.0, Neut # (Auto) 3.6, Lymph # (Auto) 2.4, Placer # (Auto) 0.8, Eos # (Auto) 0.2, Baso # (Auto) 0.1, D-Dimer 0.35, Sodium 135 L, Potassium 5.3 H D, Chloride 105, Carbon Dioxide 25, Anion Gap 10.3, BUN 20 D, Creatinine 1.30 H, Estimated Creat Clear 84, Estimated GFR 58 L, Est GFR ( Amer) 70, Glucose 104 H, Calcium 9.4, Total Bilirubin 0.9, AST 49 D, ALT 17, Alkaline Phosphatase 71, Troponin I < 0.01, NT-Pro-B Natriuret Pep 124, Total Protein 7.8, Albumin 4.6, Globulin 3.2, Albumin/Globulin Ratio 1.4 05/11/25 05:14: Potassium 3.9 D 05/11/25 07:16: Troponin I < 0.01 05/11/25 04:15 05/11/25 05:14 Response Orders (Tests/Meds): ED MEDICATIONS Generic Name Dose Route Start Last Admin Trade Name Freq PRN Reason Stop Dose Admin Nitroglycerin 0.4 mg 05/11/25 04:05 05/11/25 04:45 Nitroglycerin 0.4mg Sl Tablet SL 05/12/25 04:05 0.4 mg Q5MINP PRN Administration Chest Pain Discontinued Medications Generic Name Dose Route Start Last Admin Trade Name Freq PRN Reason Stop Dose Admin Albuterol/Ipratropium 9 ml 05/11/25 04:18 05/11/25 04:30 Ipratropium/Albuterol 3 Ml Neb IH 05/11/25 04:19 9 ml ONCE ONE Administration Belladonna Alkaloids 60 ml 05/11/25 07:59 Belladonna Alkaloids 60 Ml Ml PO 05/11/25 08:00 ONCE ONE ORDERS Category Date Time Status XR chest 2V Stat Exams 05/11/25 04:05 Completed Complete Blood Count Auto Diff Stat Lab 05/11/25 04:15 Completed Comprehensive Metabolic Panel Stat Lab 05/11/25 04:15 Completed D-Dimer Stat Lab 05/11/25 04:15 Completed NT Pro Brain Natriuretic Pep. Stat Lab 05/11/25 04:15 Completed Potassium Stat Lab 05/11/25 05:14 Completed Troponin I Q3H Lab 05/11/25 07:16 Completed Troponin I Q3H Lab 05/11/25 10:15 Ordered Troponin I Stat Lab 05/11/25 04:15 Completed VBG [Venous Blood Gas] Stat RT 05/11/25 04:13 Completed MDM Narrative Medical Decision Narrative: In summary, this 54-year-old male with comorbidities described in the HPI presents to the emergency department today with chest pain. On initial evaluation patient is hemodynamically stable, afebrile, cardiac exam is reassuring, no peripheral edema, no murmurs rubs or gallops, lungs demonstrate end expiratory wheezing throughout all lung bullock with no other adventitious sounds, saturating in the low 90s on room air. Abdominal exam benign, GCS 15, no neurologic deficits. Differential diagnosis includes but is not limited to ACS, PE, esophageal spasm, pneumonia, pneumothorax, COPD exacerbation, I did also consider the possibility of malingering. Patient has made comments in the ER about hoping he can stay in the hospital overnight and we will change his story to accommodate more concerning sounding symptoms that he did not initially report when I try to reassure him about his current condition which makes me concerned for malingering. Ruling out the most morbid conditions drove my assessment. Based on these concerns, I ordered hematologic and serum labs, D-dimer, cardiac workup, chest x-ray. ECG personally interpreted demonstrates sinus rhythm, rate 75, normal VA and QTc, no STEMI, there is wandering baseline so repeat ECG is pending. Patient received nitro for treatment. Repeat ECG demonstrates sinus rhythm, rate 76, normal axis, normal VA and QTc, no STEMI Labs personally reviewed demonstrate pH 7.49, no hypercarbia, I am still going to administer DuoNebs due to patient's symptoms of chest discomfort and obvious wheezing on pulmonary exam. On reassessment after DuoNeb's wheezing is improved. CBC with no leukocytosis, mild anemia is nonactionable at this time and not significantly changed from prior, platelets normal, D-dimer normal at 0.35, PE excluded, no CTA PE indicated. D-dimer normal at 0.35, PE excluded, no CTA PE indicated. CMP had initially demonstrated mild hyperkalemia with potassium 5.3, however I am suspicious that this may be false so repeat potassium was ordered and performed, repeat potassium is 3.9. Patient does have creatinine of 1.3, it was previously 1.5 a few days ago. He is receiving a small amount of IV fluids. No transaminitis, initial troponin undetectably low less than 0.01 which is reassuring in the setting of nonischemic ECG XR personally interpreted demonstrates no acute intrathoracic abnormality, see radiology read for final interpretation. Patient had received nitro and is no longer complaining of chest pain. He was placed in the ED observation at 0530 for continued symptomatic monitoring, serial troponin to rule out evolving AL and preclude unnecessary admission. He remains on the conveyor monitor and has been frequently reassessed. Patient handed off to Dr. Kilpatrick in stable condition pending repeat troponin. Total time in ED observation:[] <Geraldo Kilpatrick MD - Last Filed: 05/11/25 08:07> Vital Signs Vital Signs: 05/11/25 04:06 05/11/25 04:06 05/11/25 04:16 Temperature 98.6 F Temperature Source Oral Pulse Rate 80 80 Pulse Rate [Right] 80 Respiratory Rate 16 16 Blood Pressure 139/94 H Blood Pressure [Right Arm] 139/94 H Blood Pressure Mean Blood Pressure Mean [Right Arm] 109 02 Sat by Pulse Oximetry 94 L 94 L Oxygen Delivery Method Room Air Room Air 05/11/25 04:30 05/11/25 04:32 05/11/25 04:41 Temperature Temperature Source Pulse Rate 81 81 81 Pulse Rate [Right] Respiratory Rate 19 13 12 Blood Pressure 135/82 135/82 133/82 Blood Pressure [Right Arm] Blood Pressure Mean 99 93 Blood Pressure Mean [Right Arm] 02 Sat by Pulse Oximetry 91 L 93 L 91 L Oxygen Delivery Method Room Air 05/11/25 04:46 05/11/25 05:31 05/11/25 06:24 Temperature Temperature Source Pulse Rate 80 66 69 Pulse Rate [Right] Respiratory Rate 17 19 21 Blood Pressure 133/82 138/77 125/59 L Blood Pressure [Right Arm] Blood Pressure Mean 107 Blood Pressure Mean [Right Arm] 02 Sat by Pulse Oximetry 95 93 L 92 L Oxygen Delivery Method Room Air Room Air Lab Data Labs: Lab Results 05/11/25 04:13: VBG pH 7.49 H, VBG pCO2 36.2, VBG pO2 58.9 H, VBG HCO3 27.0, VBG Total CO2 28.1 H, VBG O2 Saturation 93.0 H, VBG Base Excess 3.7 H, VBG Lactic Acid 1.1 05/11/25 04:15: WBC 7.1, RBC 4.57 L, Hgb 12.9 L, Hct 39.3 L, MCV 86.0, MCH 28.2, MCHC 32.8, RDW 16.2, Plt Count 314, MPV 10.5 H, Neut % (Auto) 51.3, Lymph % (Auto) 34.0, Placer % (Auto) 10.9 H, Eos % (Auto) 2.5, Baso % (Auto) 1.0, Neut # (Auto) 3.6, Lymph # (Auto) 2.4, Placer # (Auto) 0.8, Eos # (Auto) 0.2, Baso # (Auto) 0.1, D-Dimer 0.35, Sodium 135 L, Potassium 5.3 H D, Chloride 105, Carbon Dioxide 25, Anion Gap 10.3, BUN 20 D, Creatinine 1.30 H, Estimated Creat Clear 84, Estimated GFR 58 L, Est GFR ( Amer) 70, Glucose 104 H, Calcium 9.4, Total Bilirubin 0.9, AST 49 D, ALT 17, Alkaline Phosphatase 71, Troponin I < 0.01, NT-Pro-B Natriuret Pep 124, Total Protein 7.8, Albumin 4.6, Globulin 3.2, Albumin/Globulin Ratio 1.4 05/11/25 05:14: Potassium 3.9 D 05/11/25 07:16: Troponin I < 0.01 Response Orders (Tests/Meds): ED MEDICATIONS Generic Name Dose Route Start Last Admin Trade Name Freq PRN Reason Stop Dose Admin Nitroglycerin 0.4 mg 05/11/25 04:05 05/11/25 04:45 Nitroglycerin 0.4mg Sl Tablet SL 05/12/25 04:05 0.4 mg Q5MINP PRN Administration Chest Pain Discontinued Medications Generic Name Dose Route Start Last Admin Trade Name Freq PRN Reason Stop Dose Admin Albuterol/Ipratropium 9 ml 05/11/25 04:18 05/11/25 04:30 Ipratropium/Albuterol 3 Ml Neb IH 05/11/25 04:19 9 ml ONCE ONE Administration Belladonna Alkaloids 60 ml 05/11/25 07:59 Belladonna Alkaloids 60 Ml Ml PO 05/11/25 08:00 ONCE ONE ORDERS Category Date Time Status XR chest 2V Stat Exams 05/11/25 04:05 Completed Complete Blood Count Auto Diff Stat Lab 05/11/25 04:15 Completed Comprehensive Metabolic Panel Stat Lab 05/11/25 04:15 Completed D-Dimer Stat Lab 05/11/25 04:15 Completed NT Pro Brain Natriuretic Pep. Stat Lab 05/11/25 04:15 Completed Potassium Stat Lab 05/11/25 05:14 Completed Troponin I Q3H Lab 05/11/25 07:16 Completed Troponin I Q3H Lab 05/11/25 10:15 Ordered Troponin I Stat Lab 05/11/25 04:15 Completed VBG [Venous Blood Gas] Stat RT 05/11/25 04:13 Completed MDM Narrative Medical Decision Narrative: In summary, this 54-year-old male with comorbidities described in the HPI presents to the emergency department today with chest pain. On initial evaluation patient is hemodynamically stable, afebrile, cardiac exam is reassuring, no peripheral edema, no murmurs rubs or gallops, lungs demonstrate end expiratory wheezing throughout all lung bullock with no other adventitious sounds, saturating in the low 90s on room air. Abdominal exam benign, GCS 15, no neurologic deficits. Differential diagnosis includes but is not limited to ACS, PE, esophageal spasm, pneumonia, pneumothorax, COPD exacerbation, I did also consider the possibility of malingering. Patient has made comments in the ER about hoping he can stay in the hospital overnight and we will change his story to accommodate more concerning sounding symptoms that he did not initially report when I try to reassure him about his current condition which makes me concerned for malingering. Ruling out the most morbid conditions drove my assessment. Based on these concerns, I ordered hematologic and serum labs, D-dimer, cardiac workup, chest x-ray. ECG personally interpreted demonstrates sinus rhythm, rate 75, normal VA and QTc, no STEMI, there is wandering baseline so repeat ECG is pending. Patient received nitro for treatment. Repeat ECG demonstrates sinus rhythm, rate 76, normal axis, normal VA and QTc, no STEMI Labs personally reviewed demonstrate pH 7.49, no hypercarbia, I am still going to administer DuoNebs due to patient's symptoms of chest discomfort and obvious wheezing on pulmonary exam. On reassessment after DuoNeb's wheezing is improved. CBC with no leukocytosis, mild anemia is nonactionable at this time and not significantly changed from prior, platelets normal, D-dimer normal at 0.35, PE excluded, no CTA PE indicated. D-dimer normal at 0.35, PE excluded, no CTA PE indicated. CMP had initially demonstrated mild hyperkalemia with potassium 5.3, however I am suspicious that this may be false so repeat potassium was ordered and performed, repeat potassium is 3.9. Patient does have creatinine of 1.3, it was previously 1.5 a few days ago. He is receiving a small amount of IV fluids. No transaminitis, initial troponin undetectably low less than 0.01 which is reassuring in the setting of nonischemic ECG XR personally interpreted demonstrates no acute intrathoracic abnormality, see radiology read for final interpretation. Patient had received nitro and is no longer complaining of chest pain. He was placed in the ED observation at 0530 for continued symptomatic monitoring, serial troponin to rule out evolving AL and preclude unnecessary admission. He remains on the conveyor monitor and has been frequently reassessed. Patient handed off to Dr. Kilpatrick in stable condition pending repeat troponin. Geraldo Kilpatrick MD At the time my assumption of care, plan was to follow-up repeat troponin. If still symptomatic, likely talk to cardiology team. Ultimately, patient's workup showed negative troponin x 2. Workup was otherwise unremarkable. On reassessment, patient describes some continued chest heaviness. Will attempt GI cocktail, however patient declined. Patient requesting morphine specifically at this time. I discussed with patient that we can attempt to talk with cardiology for his continued chest pain but that morphine does not address any potential underlying issues. He does not want any additional medication and wants to leave at this time. He does state that he is allergic to Tylenol and ibuprofen as well. Patient's workup shows no evidence of active ischemia but could be component of unstable angina. Patient has close follow-up with cardiology on the I encouraged him to make this appointment. Return precautions were provided. He was then discharged from the emergency department in stable condition. Total time in ED observation: 2:35
--- NOTE | 2025-05-11 04:11 | ECG_ITS ---
APPROVED REPORT Exam: Resting ECG HR:75 bpm ECG Measurements Heart Rate 75 AXES AL 174 P 69 QRSd 118 QRS 64 QT 415 T 73 QTc 444 Conclusion SINUS RHYTHM MODERATE INTRAVENTRICULAR CONDUCTION DELAY [110+ ms QRS DURATION] Wandering baseline limits interpretation but no STEMI appreciated. See repeat ECG Electronically signed by : VIVIAN MASON, 05/11/2025 06:57:21
[2025-05-11 04:19] LABS: Lactate Venous 1.1 mmol/L (0.4-2.0); VBG HCO3 27.0 mmol/L (23-30); VBG PCO2 36.2 mmol/L (35-51); VBG PH 7.49 mmol/L (7.31-7.41); VBG PO2 58.9 mmol/L (28-40)
[2025-05-11] MEDS: NITROGLYCERIN 0.4MG SL TABLET 0.4 MG SL ×3 (04:19→04:45)
--- NOTE | 2025-05-11 04:19 | ECG_ITS ---
APPROVED REPORT Exam: Resting ECG HR:76 bpm ECG Measurements Heart Rate 76 AXES NV 179 P 64 QRSd 121 QRS 56 QT 409 T 77 QTc 439 Conclusion SINUS RHYTHM POSSIBLE INFERIOR MYOCARDIAL INFARCTION , PROBABLY OLD [30 ms Q WAVE IN II/aVF] No STEMI Electronically signed by : VIVIAN MASON, 05/11/2025 06:57:34
[2025-05-11 04:24] LABS: Hematocrit 39.3 % (42.0-52.0); Hemoglobin 12.9 g/dL (14.1-18.0); Immature Granulocytes % 0.3 %; Mean Corpuscular HGB Conc 32.8 g/dL (31.8-35.4); Mean Corpuscular Hemoglobin 28.2 pg (27.0-31.2); Mean Corpuscular Volume 86.0 fl (80-94); Nucleated Red Blood Cells % 0 %; Platelet Count 314 K/mm3 (142-424); Red Blood Count 4.57 M/mm3 (4.60-6.20); Red Cell Distribution Width-SD 50.8 fL; White Blood Count 7.1 K/mm3 (4.8-10.8)
[2025-05-11] MEDS: IPRATROPIUM/ALBUTEROL 3 ML NEB 9 ML IH (04:30)
[2025-05-11 04:39] LABS: Alanine Aminotransferase 17 U/L (12-78); Albumin Level 4.6 g/dl (3.5-5.0); Albumin/Globulin Ratio 1.4 (1.1-1.8); Alkaline Phosphatase 71 U/L (38-126); Anion Gap 10.3 mEq/L (5-15); Aspartate Amino Transferase 49 U/L (17-59); Bilirubin,Total 0.9 mg/dl (0.2-1.3); Blood Urea Nitrogen 20 mg/dl (9-20); Calcium 9.4 mg/dl (8.4-10.2); Carbon Dioxide 25 mmol/L (22.0-30.0); Chloride 105 mmol/L (98-107); Creatinine Clearance Estimated 84 mL/min (50-200); Creatinine,Serum 1.30 mg/dl (0.66-1.25); Estimated Glomerular Filt Rate 58 ml/min (>60); GFR (African American) 70 ML/MIN (>60); Globulin 3.2 g/dL (1.3-3.2); Glucose 104 mg/dl (74-100); Potassium 5.3 mmoL/L (3.5-5.1); Sodium 135 mmol/L (136-145); Total Protein,Serum 7.8 g/dl (6.3-8.2)
[2025-05-11 04:44] LABS: D-Dimer 0.35 ug/mL (0.0-0.5)
[2025-05-11 04:52] LABS: NT Pro Brain Natriuretic Pep. 124 pg/mL (0-125)
[2025-05-11 04:54] LABS: Troponin I < 0.01 ng/ml (0.00-0.034)
[2025-05-11 05:27] LABS: Potassium 3.9 mmoL/L (3.5-5.1)
[2025-05-11 07:47] LABS: Troponin I < 0.01 ng/ml (0.00-0.034)
--- NOTE | 2025-05-11 08:03 | PC.NURSE ---
[facility] NOTIFIED FOR TRANSFER FOR PT BACK TO [facility]
--- NOTE | 2025-05-11 08:03 | PC.NURSE ---
Spoke w/ pt about him wanting to leave. Pt requesting morphine, stating that is the only thing that gets rid of his chest pain. Educated pt that MD is consulting cards and that we were waiting on their consultation for further cardiac work-up, but that MD wishes to proceed w/ giving pt GI cocktail to see if it helps improve pt's symptoms. Pt refuses this and states that he only wishes to get morphine because it is the only thing that works. MD made aware. Pt removed monitor leads and was attempting to remove his IV independently. RN removed PIV and placed gauze and koban. Pt sitting at side of bed. No further needs @ this time. [facility] contacted for transportation. working on DC. Pt updated on POC.
--- NOTE | 2025-05-11 08:14 | PC.NURSE ---
Report called to Glenna @ [facility].
== END 2025-05-11 08:15 | disposition home or self-care (01) ==
PROVIDERS: Emergency Provider Emergency Medicine
DX: R07.9 Chest pain, unspecified (principal); I10 Essential (primary) hypertension; J44.9 Chronic obstructive pulmonary disease, unspecified; F17.210 Nicotine dependence, cigarettes, uncomplicated; Z86.79 Personal history of other diseases of the circulatory system; Z79.01 Long term (current) use of anticoagulants; Z95.5 Presence of coronary angioplasty implant and graft
CPT/HCPCS: 71046; 80053; 82803; 83880; 84132; 84484; 85025; 85378; 93005; 99285

== ENCOUNTER 2025-05-15 06:32 | Emergency (ER) | payer MEDICARE, SELFPAY ==
--- NOTE | 2025-05-15 06:51 | XR_ITS ---
PROCEDURE INFORMATION: Exam: XR Chest Exam date and time: 05/15/2025 7:08 AM Age: 54 years old Clinical indication: Shortness of breath; Additional info: Copd, SOA TECHNIQUE: Imaging protocol: Radiologic exam of the chest. Views: 1 view. COMPARISON: CR XR CHEST 2V 05/11/2025 4:14 AM FINDINGS: Lungs: No focal consolidation. Pleural spaces: Unremarkable. No pleural effusion. No pneumothorax. Heart/Mediastinum: Unremarkable. No cardiomegaly. Bones/joints: Remote left rib fractures. Other findings: Questionable 2 cm nodular density projecting over the right posterior 8th rib. [address] CT examination. IMPRESSION: Questionable 2 cm nodular density projecting over the right posterior 8th rib. Consider CT examination.
--- NOTE | 2025-05-15 06:51 | HMH.EDGENADL ---
Discharge Plan Disposition Patient Disposition: Home, Self-Care Prescriptions Prescriptions: New benzonatate 100 mg capsule 100 mg PO TID PRN (Reason: cough) 5 Days Qty: 20 0RF prednisone 50 mg tablet 50 mg PO DAILY 5 Days Qty: 5 0RF Rx Instructions: Please begin 1 day after ED visit albuterol sulfate 90 mcg/actuation HFA aerosol inhaler 4 inh inhalation Q4H PRN (Reason: shortness of breath or wheezing) Qty: 8.5 0RF Rx Instructions: 4 puffs every 4 hours for 48 hours then as needed for shortness of breath or wheezing following amoxicillin-pot clavulanate 875-125 mg tablet 1 tab PO BID 10 Days Qty: 20 0RF No Action atorvastatin 80 mg Tablet 80 mg PO DAILY amiodarone 200 mg Tablet 200 mg PO DAILY prazosin 1 mg Capsule 1 mg PO HS lisinopril 20 mg Tablet 20 mg PO DAILY clopidogrel 75 mg Tablet 75 mg PO DAILY isosorbide mononitrate 60 mg Tablet Extended Release 24 Hr 60 mg PO DAILY tamsulosin 0.4 mg Capsule 0.4 mg PO DAILY amlodipine 10 mg Tablet 10 mg PO DAILY ferrous sulfate [FeroSul] 325 mg (65 mg iron) Tablet 325 mg PO DAILY levothyroxine 200 mcg Tablet 200 mcg PO DAILY fluphenazine HCl 5 mg Tablet 5 mg PO DAILY pantoprazole [address] For Susp In Packet 40 mg PO DAILY duloxetine 60 mg Capsule, Delayed Rel Sprinkle 60 mg PO DAILY nitroglycerin 0.4 mg Tablet, Sublingual 0.4 mg SUBLINGUAL Q5M PRN (Reason: Chest Pain) Rx Instructions: do not exceed 3 doses per episode ranolazine 500 mg Tablet Extended Release 12 Hr 500 mg PO BID fluticasone furoate [Arnuity Ellipta] 100 mcg/actuation Blister With Device 1 inh INHALATION DAILY carvedilol 6.25 mg Tablet 6.25 mg PO BID 30 Days Qty: 60 0RF Referrals Follow up/Referrals: Kyle Hayden MD [Physician, Pulmonology] - See instructions Activity Restrictions/Add. Instructions Additional Instructions/Restrictions: Make sure you get your medications filled today return with any significant worsening of your symptoms. Clinical Impressions Clinical Impression: Acute exacerbation of chronic obstructive pulmonary disease Print Language Print Language: Sudanese Discharge ED Provider: Omari Parikh General Adult HPI <Omari Parikh MD - Last Filed: 05/15/25 07:12> General Chief complaint: Shortness of Breath/Dyspnea Stated complaint: SOA Time Seen by Provider: 05/15/25 06:51 History of Present Illness HPI narrative: 54-year-old male with with history of of coronary artery disease, COPD, PTSD, resident at [facility] presents for shortness of breath. He reports this been ongoing for last few hours. EMS reports wheezing, gave him a DuoNeb and route with some improvement. He denies chest pain currently. Denies fever. Cough is nonproductive. Related Data Home Medications ?Medication ?Instructions ?Recorded ?Confirmed amiodarone 200 mg tablet 200 mg PO DAILY 05/03/25 05/03/25 amlodipine 10 mg tablet 10 mg PO DAILY 05/03/25 05/03/25 atorvastatin 80 mg tablet 80 mg PO DAILY 05/03/25 05/03/25 clopidogrel 75 mg tablet 75 mg PO DAILY 05/03/25 05/03/25 duloxetine 60 mg capsule,delayed 60 mg PO DAILY 05/03/25 05/03/25 release sprinkle ferrous sulfate 325 mg (65 mg 325 mg PO DAILY 05/03/25 05/03/25 iron) tablet (FeroSul) fluphenazine HCl 5 mg tablet 5 mg PO DAILY 05/03/25 05/03/25 fluticasone furoate 100 1 inh inhalation DAILY 05/03/25 05/03/25 mcg/actuation blister powder for inhalation (Arnuity Ellipta) isosorbide mononitrate 60 mg 60 mg PO DAILY 05/03/25 05/03/25 tablet,extended release 24 hr levothyroxine 200 mcg tablet 200 mcg PO DAILY 05/03/25 05/03/25 lisinopril 20 mg tablet 20 mg PO DAILY 05/03/25 05/03/25 nitroglycerin 0.4 mg sublingual 0.4 mg sublingual Q5M PRN Chest 05/03/25 05/03/25 tablet Pain pantoprazole 40 mg granules 40 mg PO DAILY 05/03/25 05/03/25 delayed-release for susp in packet prazosin 1 mg capsule 1 mg PO HS 05/03/25 05/03/25 ranolazine 500 mg tablet,extended 500 mg PO BID 05/03/25 05/03/25 release,12 hr tamsulosin 0.4 mg capsule 0.4 mg PO DAILY 05/03/25 05/03/25 Previous Rx's ?Medication ?Instructions ?Recorded carvedilol 6.25 mg tablet 6.25 mg PO BID 30 days #60 tabs 05/04/25 albuterol sulfate 90 mcg/actuation 4 inh inhalation Q4H PRN shortness 05/15/25 aerosol inhaler of breath or wheezing #8.5 grams amoxicillin 875 mg-potassium 1 tab PO BID 10 days #20 tabs 05/15/25 clavulanate 125 mg tablet benzonatate 100 mg capsule 100 mg PO TID PRN cough 5 days #20 05/15/25 caps prednisone 50 mg tablet 50 mg PO DAILY 5 days #5 tabs 05/15/25 Allergies Allergy/AdvReac Type Severity Reaction Status Date / Time acetaminophen (From Tylenol) Allergy Hives Verified 05/15/25 07:01 buspirone Allergy Unknown Verified 05/15/25 07:01 allergy reaction ibuprofen Allergy Rash Verified 05/15/25 07:01 ketorolac (From Toradol) Allergy Hives Verified 05/15/25 07:01 olanzapine (From Zyprexa) Allergy Unknown Verified 05/15/25 07:01 allergy reaction risperidone (From Risperdal) Allergy Unknown Verified 05/15/25 07:01 allergy reaction tramadol Allergy Hives Verified 05/15/25 07:01 ziprasidone (From Geodon) Allergy Unknown Verified 05/15/25 07:01 allergy reaction PFSH <Omari Parikh MD - Last Filed: 05/15/25 07:12> [facility] Disclaimer: The information contained in this section may have been updated after the patient was seen, as this information can be updated by other users. Medical History (Updated 05/15/25 @ 08:14 by Lona Harry MD) Stress bladder incontinence, male Pneumonia Emphysema/COPD History of transient ischemic attack (TIA) Colonoscopy planned Stomach ulcer Hypothyroid Congestive heart failure Hypertension Tonsillectomy planned Cholecystectomy planned Spinal stenosis History of left heart catheterization PTSD (post-traumatic stress disorder) Surgical History (Updated 05/04/25 @ 01:31 by Vanessa Carter RN) H/O adenoidectomy H/O heart artery stent H/O spinal fusion Social History (Updated 05/04/25 @ 01:31 by Vanessa Carter RN) Smoking Status: Current every day smoker alcohol intake: former current occupational status: other Travel in the last 8 weeks?: None Have you lived/traveled outside US in past 30 days?: No Contact w/someone who lives/traveled outside US past 30 days?: No Exposure to someone with infectious disease in past 14 days?: No Do you have a fever (greater than 100.4 F or 38 C)?: No Have you tested positive for COVID-19?: No Exposed to someone with COVID-19 in past 14 days?: No Do you have a sore throat?: No Do you have a cough?: No Do you have any weakness?: No Do you have any diarrhea?: No Are you experiencing any unusual bleeding?: No Do you have any muscle aches/pain?: No Do you have any abdominal pain?: No Are you experiencing loss of taste or smell?: No Other Medical History Have you received the Flu Vaccine for this season: No Have you received the Pneumonia Vaccine: No <Omari Parikh MD - Last Filed: 05/15/25 07:12> ROS Obtained: Yes All systems reviewed & no additional complaints except as documented Physical Exam <Omari Parikh MD - Last Filed: 05/15/25 07:12> General General appearance: alert and in no apparent distress Head Head exam: atraumatic and normocephalic Eye Eye exam: Present normal appearance, PERRL and EOMI ENT ENT exam: Present normal oropharynx and normal external ear exam Neck Neck exam: Present normal inspection and full ROM Chest Chest inspection: Present normal inspection and symmetric chest wall rise; Absent tenderness Respiratory Respiratory exam: Present wheezes and prolonged expiratory phase; Absent respiratory distress Cardiovascular Cardiovascular exam: Present regular rate and normal rhythm Abdominal Exam Abdominal exam: Present soft; Absent distention, tenderness or guarding Extremities Exam Extremities exam: Present normal inspection; Absent edema or joint swelling Back Exam Back exam: Present normal inspection; Absent tenderness Neurological Exam Neurological exam: Present alert and oriented X3; Absent motor sensory deficit Psychiatric Psychiatric exam: Present normal affect and normal mood Skin Skin exam: Present warm, dry and normal color Lymphatic Lymphatic Findings: no adenopathy Medical Decision Making <Omari Parikh MD - Last Filed: 05/15/25 07:12> Medical Records Medical records reviewed: Yes I reviewed the patient's medical records. Screening: Per USPSTF and CDC recommendations, given the prevalence of disease in our region, it is our hospital?s policy to screen for HIV and viral Hepatitis for all patients aged 18 and over and those with ongoing risk factors. [place] Inquiry Pt receiving controlled substance: No [place] was queried for this patient: No Vital Signs: 05/15/25 06:52 05/15/25 07:16 05/15/25 07:16 Temperature 97.9 F Temperature Source Oral Pulse Rate 73 74 Pulse Rate [Left] 87 Respiratory Rate 18 Blood Pressure Blood Pressure [Right Arm] 122/87 Blood Pressure Mean [Right Arm] 98 Blood Pressure Source [Right Arm] Automatic Cuff Blood Pressure Position [Right Arm] Sitting 02 Sat by Pulse Oximetry 97 Oxygen Delivery Method Room Air 05/15/25 07:31 05/15/25 08:00 Temperature Temperature Source Pulse Rate 72 70 Pulse Rate [Left] Respiratory Rate Blood Pressure 133/75 144/73 H Blood Pressure [Right Arm] Blood Pressure Mean [Right Arm] Blood Pressure Source [Right Arm] Blood Pressure Position [Right Arm] 02 Sat by Pulse Oximetry 99 94 L Oxygen Delivery Method Room Air Room Air Lab Data Lab results reviewed: Yes I reviewed the patient's lab results. Lab Results 05/15/25 06:59: WBC 9.0, RBC 4.62, Hgb 13.1 L, Hct 39.6 L, MCV 85.7, MCH 28.4, MCHC 33.1, RDW 16.2, Plt Count 374, MPV 10.1, Neut % (Auto) 55.1, Lymph % (Auto) 30.5, [place] % (Auto) 10.4 H, Eos % (Auto) 2.3, Baso % (Auto) 1.0, Neut # (Auto) 5.0, Lymph # (Auto) 2.8, [place] # (Auto) 0.9, Eos # (Auto) 0.2, Baso # (Auto) 0.1, VBG pH 7.38, VBG pCO2 44.8, VBG pO2 55.6 H, VBG HCO3 25.9, VBG Total CO2 27.3 H, VBG O2 Saturation 88.4 H, VBG Base Excess 0.8, VBG Lactic Acid 1.4, Sodium 139, Potassium 3.8, Chloride 105, Carbon Dioxide 28, Anion Gap 9.8, BUN 12, Creatinine 1.40 H, Estimated Creat Clear 78, Estimated GFR 53 L, Est GFR ( Amer) 64, Glucose 114 H, Calcium 10.0, Total Bilirubin 0.4, AST 29, ALT 14, Alkaline Phosphatase 105, Total Protein 7.3, Albumin 4.5, Globulin 2.8, Albumin/Globulin Ratio 1.6 05/15/25 06:59 05/15/25 06:59 Orders (Tests/Meds): ED MEDICATIONS Discontinued Medications Generic Name Dose Route Start Last Admin Trade Name Freq PRN Reason Stop Dose Admin Albuterol/Ipratropium 6 ml 05/15/25 06:51 05/15/25 07:10 Ipratropium/Albuterol 3 Ml Neb IH 05/15/25 06:52 6 ml ONCE ONE Administration Magnesium Sulfate 2 gm in 50 mls @ 150 mls/hr 05/15/25 06:51 05/15/25 07:47 Magnesium Sulfate 2gm/50ml Premix IV 05/15/25 07:10 Infused ONCE ONE Infusion Methylprednisolone Sodium Succinate 125 mg 05/15/25 06:51 05/15/25 07:10 Methylprednisolone Sod Succ 125mg Vial IV 05/15/25 06:52 125 mg ONCE ONE Administration ORDERS Category Date Time Status CXR --portable [XR chest portable] Stat Exams 05/15/25 06:51 Taken CBC w/Auto Diff [Complete Blood Count Auto Diff] Stat Lab 05/15/25 06:59 Completed CMP [Comprehensive Metabolic Panel] Stat Lab 05/15/25 06:59 Completed VBG [Venous Blood Gas] Stat RT 05/15/25 06:59 Completed EKG Request [ECG Request] Stat Y 05/15/25 06:53 Ordered ECG Data Tracing #1: I reviewed this ECG and interpreted as documented below: Sinus rhythm, rate of 78, no new ischemic changes. ECG initial impression date: 05/15/25 ECG initial impression time: 06:54 Medical Decision Narrative: 54-year-old male with history of coronary artery disease, COPD, PTSD, resident of [facility] presents for shortness of breath over the last few hours. History was obtained via interactive discussion with patient, EMS, chart review. On arrival, patient is [afebrile, hemodynamically stable, satting appropriately, alert, oriented x4, GCS 15], moving all extremities spontaneously. Full physical exam performed and significant for wheezing and slightly prolonged expiratory phase bilaterally, no significant respiratory distress. Satting low 90s on room air. No lower extremity edema. Differential includes but is not limited to COPD exacerbation, pneumonia, heart failure.. Patient was given 2 additional DuoNebs, Solu-Medrol for symptomatic management and correction of underlying abnormalities. Workup initiated including chest x-ray, Basic labs At this time care handed off to oncoming physician. <Lona Harry MD - Last Filed: 05/15/25 08:15> Vital Signs: 05/15/25 06:52 05/15/25 07:16 05/15/25 07:16 Temperature 97.9 F Temperature Source Oral Pulse Rate 73 74 Pulse Rate [Left] 87 Respiratory Rate 18 Blood Pressure Blood Pressure [Right Arm] 122/87 Blood Pressure Mean [Right Arm] 98 Blood Pressure Source [Right Arm] Automatic Cuff Blood Pressure Position [Right Arm] Sitting 02 Sat by Pulse Oximetry 97 Oxygen Delivery Method Room Air 05/15/25 07:31 05/15/25 08:00 Temperature Temperature Source Pulse Rate 72 70 Pulse Rate [Left] Respiratory Rate Blood Pressure 133/75 144/73 H Blood Pressure [Right Arm] Blood Pressure Mean [Right Arm] Blood Pressure Source [Right Arm] Blood Pressure Position [Right Arm] 02 Sat by Pulse Oximetry 99 94 L Oxygen Delivery Method Room Air Room Air Lab Data Lab Results 05/15/25 06:59: WBC 9.0, RBC 4.62, Hgb 13.1 L, Hct 39.6 L, MCV 85.7, MCH 28.4, MCHC 33.1, RDW 16.2, Plt Count 374, MPV 10.1, Neut % (Auto) 55.1, Lymph % (Auto) 30.5, [place] % (Auto) 10.4 H, Eos % (Auto) 2.3, Baso % (Auto) 1.0, Neut # (Auto) 5.0, Lymph # (Auto) 2.8, [place] # (Auto) 0.9, Eos # (Auto) 0.2, Baso # (Auto) 0.1, VBG pH 7.38, VBG pCO2 44.8, VBG pO2 55.6 H, VBG HCO3 25.9, VBG Total CO2 27.3 H, VBG O2 Saturation 88.4 H, VBG Base Excess 0.8, VBG Lactic Acid 1.4, Sodium 139, Potassium 3.8, Chloride 105, Carbon Dioxide 28, Anion Gap 9.8, BUN 12, Creatinine 1.40 H, Estimated Creat Clear 78, Estimated GFR 53 L, Est GFR ( Amer) 64, Glucose 114 H, Calcium 10.0, Total Bilirubin 0.4, AST 29, ALT 14, Alkaline Phosphatase 105, Total Protein 7.3, Albumin 4.5, Globulin 2.8, Albumin/Globulin Ratio 1.6 Orders (Tests/Meds): ED MEDICATIONS Discontinued Medications Generic Name Dose Route Start Last Admin Trade Name Freq PRN Reason Stop Dose Admin Albuterol/Ipratropium 6 ml 05/15/25 06:51 05/15/25 07:10 Ipratropium/Albuterol 3 Ml Neb IH 05/15/25 06:52 6 ml ONCE ONE Administration Magnesium Sulfate 2 gm in 50 mls @ 150 mls/hr 05/15/25 06:51 05/15/25 07:47 Magnesium Sulfate 2gm/50ml Premix IV 05/15/25 07:10 Infused ONCE ONE Infusion Methylprednisolone Sodium Succinate 125 mg 05/15/25 06:51 05/15/25 07:10 Methylprednisolone Sod Succ 125mg Vial IV 05/15/25 06:52 125 mg ONCE ONE Administration ORDERS Category Date Time Status CXR --portable [XR chest portable] Stat Exams 05/15/25 06:51 Taken CBC w/Auto Diff [Complete Blood Count Auto Diff] Stat Lab 05/15/25 06:59 Completed CMP [Comprehensive Metabolic Panel] Stat Lab 05/15/25 06:59 Completed VBG [Venous Blood Gas] Stat RT 05/15/25 06:59 Completed EKG Request [ECG Request] Stat Y 05/15/25 06:53 Ordered Medical Decision Narrative: 54-year-old male with history of coronary artery disease, COPD, PTSD, resident of [facility] presents for shortness of breath over the last few hours. History was obtained via interactive discussion with patient, EMS, chart review. On arrival, patient is [afebrile, hemodynamically stable, satting appropriately, alert, oriented x4, GCS 15], moving all extremities spontaneously. Full physical exam performed and significant for wheezing and slightly prolonged expiratory phase bilaterally, no significant respiratory distress. Satting low 90s on room air. No lower extremity edema. Differential includes but is not limited to COPD exacerbation, pneumonia, heart failure.. Patient was given 2 additional DuoNebs, Solu-Medrol for symptomatic management and correction of underlying abnormalities. Workup initiated including chest x-ray, Basic labs At this time care handed off to oncoming physician. Reassessments 8:14 AM patient feeling better serial pulmonary exams demonstrate patient still has some coarse breath sounds but clinically is not in any distress ox saturation is 95%. Labs unremarkable from emergency standpoint chest x-ray performed I personally interpreted shows no evidence of an acute consolidation or emergent medical condition. Prescription sent to [facility] pharmacy we are communicating with his nursing home to make sure that and get his prescriptions filled today patient discharged in a stable condition also given a referral to our senior architectural designer and return precautions emphasized. Procedures <Omari Parikh MD - Last Filed: 05/15/25 07:12> Risk/Benefits of Procedure(s) Were Explained: Yes Critical Care <Omari Parikh MD - Last Filed: 05/15/25 07:12> Critical Care Time Critical Care Time: Yes Attestation: On 05/15/25, the high probability of a clinically significant, sudden or life threatening deterioration of the following system(s) required my full and direct attention, intervention and personal management. The time I documented below is in addition to time spent performing reported procedures but includes the following listed in this critical care notation. Total Time Total Critical Care Time: 40
[2025-05-15 06:52] VITALS: BP 122/87; PULSE 87; RESP 18; TEMP 36.6; O2SAT 97; BMI 27.8
--- NOTE | 2025-05-15 06:54 | ECG_ITS ---
APPROVED REPORT Exam: Resting ECG HR:78 bpm ECG Measurements Heart Rate 78 AXES UT 179 P 51 QRSd 122 QRS 60 QT 405 T 63 QTc 438 Conclusion SINUS RHYTHM POSSIBLE INFERIOR MYOCARDIAL INFARCTION , PROBABLY OLD [30 ms Q WAVE IN II/aVF] BORDERLINE ECG UNCONFIRMED REPORT Electronically signed by : IRVING KRISHNAMURTHY, 05/16/2025 22:57:41
--- OUTSIDE RECORDS SUMMARY | 2025-05-15 07:05 | XMS_ITS ---
Author Organization Unknown TREATMENT PLAN [facility] Start Date Provider Encounter for Check-up [id number] [facility]
[2025-05-15] MEDS: METHYLPREDNISOLONE SOD SUCC 125MG VIAL 125 MG IV (07:10)
[2025-05-15] MEDS: IPRATROPIUM/ALBUTEROL 3 ML NEB 6 ML IH (07:10)
[2025-05-15] MEDS: MAGNESIUM SULFATE IN WATER 2 GM/50 ML PIGGYBACK IV (07:10)
[2025-05-15 07:14] LABS: Hematocrit 39.6 % (42.0-52.0); Hemoglobin 13.1 g/dL (14.1-18.0); Immature Granulocytes % 0.7 %; Mean Corpuscular HGB Conc 33.1 g/dL (31.8-35.4); Mean Corpuscular Hemoglobin 28.4 pg (27.0-31.2); Mean Corpuscular Volume 85.7 fl (80-94); Nucleated Red Blood Cells % 0 %; Platelet Count 374 K/mm3 (142-424); Red Blood Count 4.62 M/mm3 (4.60-6.20); Red Cell Distribution Width-SD 51.0 fL; White Blood Count 9.0 K/mm3 (4.8-10.8)
[2025-05-15 07:16] VITALS: PULSE 73; PULSE 74
[2025-05-15 07:20] LABS: Alanine Aminotransferase 14 U/L (12-78); Albumin Level 4.5 g/dl (3.5-5.0); Albumin/Globulin Ratio 1.6 (1.1-1.8); Alkaline Phosphatase 105 U/L (38-126); Anion Gap 9.8 mEq/L (5-15); Aspartate Amino Transferase 29 U/L (17-59); Bilirubin,Total 0.4 mg/dl (0.2-1.3); Blood Urea Nitrogen 12 mg/dl (9-20); Calcium 10.0 mg/dl (8.4-10.2); Carbon Dioxide 28 mmol/L (22.0-30.0); Chloride 105 mmol/L (98-107); Creatinine Clearance Estimated 78 mL/min (50-200); Creatinine,Serum 1.40 mg/dl (0.66-1.25); Estimated Glomerular Filt Rate 53 ml/min (>60); GFR (African American) 64 ML/MIN (>60); Globulin 2.8 g/dL (1.3-3.2); Glucose 114 mg/dl (74-100); Potassium 3.8 mmoL/L (3.5-5.1); Sodium 139 mmol/L (136-145); Total Protein,Serum 7.3 g/dl (6.3-8.2)
[2025-05-15 07:23] LABS: Lactate Venous 1.4 mmol/L (0.4-2.0); VBG HCO3 25.9 mmol/L (23-30); VBG PCO2 44.8 mmol/L (35-51); VBG PH 7.38 mmol/L (7.31-7.41); VBG PO2 55.6 mmol/L (28-40)
[2025-05-15 07:31] VITALS: BP 133/75; PULSE 72; O2SAT 99
[2025-05-15 08:00] VITALS: BP 144/73; PULSE 70; O2SAT 94
--- NOTE | 2025-05-15 08:25 | PC.NURSE ---
call made to [facility] for pt transport back to facility. 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
--- NOTE | 2025-05-15 08:33 | PC.NURSE ---
call made for pt breakfast tray
[2025-05-15 08:44] VITALS: BP 144/73; PULSE 70; RESP 15; TEMP 36.6; O2SAT 95
--- NOTE | 2025-05-15 11:38 | PC.NURSE ---
Zhen Felix called to clarify the pts albuterol dose. I spoke with and relayed the correct dosage.
== END 2025-05-15 08:45 | disposition home or self-care (01) ==
PROVIDERS: Emergency Provider Emergency Medicine
DX: J44.1 Chronic obstructive pulmonary disease with (acute) exacerbation (principal); F17.210 Nicotine dependence, cigarettes, uncomplicated; I11.0 Hypertensive heart disease with heart failure; I50.9 Heart failure, unspecified
CPT/HCPCS: 71045; 80053; 82803; 85025; 93005; 96365; 96375; 99285; J2919; J3475

== ENCOUNTER 2025-05-16 08:55 | Emergency (ER) | payer MEDICARE, OTHER, SELFPAY ==
--- NOTE | 2025-05-16 08:59 | ECG_ITS ---
APPROVED REPORT Exam: Resting ECG HR:88 bpm ECG Measurements Heart Rate 88 AXES MA 214 P 66 QRSd 134 QRS 53 QT 391 T 52 QTc 436 Conclusion SINUS RHYTHM WITH FIRST DEGREE AV BLOCK INTRAVENTRICULAR CONDUCTION DELAY [130+ ms QRS DURATION] POSSIBLE INFERIOR MYOCARDIAL INFARCTION , PROBABLY OLD [30 ms Q WAVE IN II/aVF] ABNORMAL ECG UNCONFIRMED REPORT Electronically signed by : IRVING KRISHNAMURTHY, 05/16/2025 23:02:08
[2025-05-16 09:09] VITALS: BP 145/97; PULSE 72; RESP 21; TEMP 36.6; O2SAT 99; BMI 29.5
[2025-05-16 09:30] VITALS: BP 134/82; PULSE 80; RESP 18; O2SAT 97
--- NOTE | 2025-05-16 09:49 | XR_ITS ---
FINAL REPORT CLINICAL HISTORY: Shortness of breath COMPARISON: 05/15/2025 FINDINGS: CHEST 1 VIEW The heart size is normal. The mediastinum is normal. There is no focal infiltrate or edema. There are no pleural effusions. There is no pneumothorax. There are moderate hypertrophic changes at the right AC joint. IMPRESSION: No acute cardiopulmonary process Reviewed, Interpreted and Dictated by Rick Lynn MD Transcribed by Karime Cisse Authenticated and [facility]
--- NOTE | 2025-05-16 09:49 | [facility].EDCP ---
Discharge Plan Disposition Patient Disposition: Home, Self-Care Prescriptions Prescriptions: New albuterol sulfate 2.5 mg /3 mL (0.083 %) solution for nebulization 2.5 mg inhalation Q6H PRN (Reason: bronchospasm) Qty: 75 0RF No Action benzonatate 100 mg capsule 100 mg PO TID PRN (Reason: cough) 5 Days Qty: 20 0RF prednisone 50 mg tablet 50 mg PO DAILY 5 Days Qty: 5 0RF Rx Instructions: Please begin 1 day after ED visit albuterol sulfate 90 mcg/actuation HFA aerosol inhaler 4 inh inhalation Q4H PRN (Reason: shortness of breath or wheezing) Qty: 8.5 0RF Rx Instructions: 4 puffs every 4 hours for 48 hours then as needed for shortness of breath or wheezing following amoxicillin-pot clavulanate 875-125 mg tablet 1 tab PO BID 10 Days Qty: 20 0RF atorvastatin 80 mg Tablet 80 mg PO DAILY amiodarone 200 mg Tablet 200 mg PO DAILY prazosin 1 mg Capsule 1 mg PO HS lisinopril 20 mg Tablet 20 mg PO DAILY clopidogrel 75 mg Tablet 75 mg PO DAILY isosorbide mononitrate 60 mg Tablet Extended Release 24 Hr 60 mg PO DAILY tamsulosin 0.4 mg Capsule 0.4 mg PO DAILY amlodipine 10 mg Tablet 10 mg PO DAILY ferrous sulfate [FeroSul] 325 mg (65 mg iron) Tablet 325 mg PO DAILY levothyroxine 200 mcg Tablet 200 mcg PO DAILY fluphenazine HCl 5 mg Tablet 5 mg PO DAILY pantoprazole [address] For Susp In Packet 40 mg PO DAILY duloxetine 60 mg Capsule, Delayed Rel Sprinkle 60 mg PO DAILY nitroglycerin 0.4 mg Tablet, Sublingual 0.4 mg SUBLINGUAL Q5M PRN (Reason: Chest Pain) Rx Instructions: do not exceed 3 doses per episode ranolazine 500 mg Tablet Extended Release 12 Hr 500 mg PO BID fluticasone furoate [Arnuity Ellipta] 100 mcg/actuation Blister With Device 1 inh INHALATION DAILY carvedilol 6.25 mg Tablet 6.25 mg PO BID 30 Days Qty: 60 0RF Referrals Follow up/Referrals: Delbert Arora [Primary Care Provider, Medical] - See instructions Activity Restrictions/Add. Instructions Additional Instructions/Restrictions: You have been seen and evaluated in the emergency department. You have been diagnosed with an atypical pneumonia. Please take Augmentin, Tessalon Perles, and use albuterol as prescribed. Return to the emergency department worsening symptoms. Clinical Impressions Clinical Impression: Emphysema/COPD Qualifiers: Emphysema type: unspecified Qualified Code(s): J43.9 - Emphysema, unspecified Pneumonia Qualifiers: Pneumonia type: due to unspecified organism Laterality: left Lung location: lower lobe of lung Qualified Code(s): J18.9 - Pneumonia, unspecified organism Instructions Patient Instructions: Atypical Pneumonia Print Language Print Language: Occitan Discharge ED Provider: Aleksandra Scott General Chief Complaint: Chest Pain Stated Complaint: Chest Pain Time Seen by Provider: 05/16/25 09:01 Mode of Arrival: EMS Source of Information: Patient and EMS Description of Symptoms (Recalled from ER Triage Doc. by RN): Patient presents to ED via EMS with c/o left sided chest pain radiating down the left arm, cough and mild SOA. Patient states the chest pain started last night, states he took two Nitro earlier this AM and the pain went away, states the chest pain then came back so he took one Nitro again at 0830 but reports it did not help this time. EMS states they administered ASA 324 and a Duo neb uniform force [employer]. Related Data Home Medications ?Medication ?Instructions ?Recorded ?Confirmed amiodarone 200 mg tablet 200 mg PO DAILY 05/03/25 05/03/25 amlodipine 10 mg tablet 10 mg PO DAILY 05/03/25 05/03/25 atorvastatin 80 mg tablet 80 mg PO DAILY 05/03/25 05/03/25 clopidogrel 75 mg tablet 75 mg PO DAILY 05/03/25 05/03/25 duloxetine 60 mg capsule,delayed 60 mg PO DAILY 05/03/25 05/03/25 release sprinkle ferrous sulfate 325 mg (65 mg 325 mg PO DAILY 05/03/25 05/03/25 iron) tablet (FeroSul) fluphenazine HCl 5 mg tablet 5 mg PO DAILY 05/03/25 05/03/25 fluticasone furoate 100 1 inh inhalation DAILY 05/03/25 05/03/25 mcg/actuation blister powder for inhalation (Arnuity Ellipta) isosorbide mononitrate 60 mg 60 mg PO DAILY 05/03/25 05/03/25 tablet,extended release 24 hr levothyroxine 200 mcg tablet 200 mcg PO DAILY 05/03/25 05/03/25 lisinopril 20 mg tablet 20 mg PO DAILY 05/03/25 05/03/25 nitroglycerin 0.4 mg sublingual 0.4 mg sublingual Q5M PRN Chest 05/03/25 05/03/25 tablet Pain pantoprazole 40 mg granules 40 mg PO DAILY 05/03/25 05/03/25 delayed-release for susp in packet prazosin 1 mg capsule 1 mg PO HS 05/03/25 05/03/25 ranolazine 500 mg tablet,extended 500 mg PO BID 05/03/25 05/03/25 release,12 hr tamsulosin 0.4 mg capsule 0.4 mg PO DAILY 05/03/25 05/03/25 Previous Rx's ?Medication ?Instructions ?Recorded carvedilol 6.25 mg tablet 6.25 mg PO BID 30 days #60 tabs 05/04/25 albuterol sulfate 90 mcg/actuation 4 inh inhalation Q4H PRN shortness 05/15/25 aerosol inhaler of breath or wheezing #8.5 grams amoxicillin 875 mg-potassium 1 tab PO BID 10 days #20 tabs 05/15/25 clavulanate 125 mg tablet benzonatate 100 mg capsule 100 mg PO TID PRN cough 5 days #20 05/15/25 caps prednisone 50 mg tablet 50 mg PO DAILY 5 days #5 tabs 05/15/25 albuterol sulfate 2.5 mg/3 mL 2.5 mg (3 mL) inhalation Q6H PRN 05/16/25 (0.083 %) solution for nebulization bronchospasm #75 mL Allergies Allergy/AdvReac Type Severity Reaction Status Date / Time acetaminophen (From Tylenol) Allergy Hives Verified 05/15/25 07:01 buspirone Allergy Unknown Verified 05/15/25 07:01 allergy reaction ibuprofen Allergy Rash Verified 05/15/25 07:01 ketorolac (From Toradol) Allergy Hives Verified 05/15/25 07:01 olanzapine (From Zyprexa) Allergy Unknown Verified 05/15/25 07:01 allergy reaction risperidone (From Risperdal) Allergy Unknown Verified 05/15/25 07:01 allergy reaction tramadol Allergy Hives Verified 05/15/25 07:01 ziprasidone (From Geodon) Allergy Unknown Verified 05/15/25 07:01 allergy reaction [facility] Disclaimer: The information contained in this section may have been updated after the patient was seen, as this information can be updated by other users. Medical History (Updated 05/16/25 @ 10:59 by Aleksandra Scott DO) Stress bladder incontinence, male Pneumonia Emphysema/COPD History of transient ischemic attack (TIA) Colonoscopy planned Stomach ulcer Hypothyroid Congestive heart failure Hypertension Tonsillectomy planned Cholecystectomy planned Spinal stenosis History of left heart catheterization PTSD (post-traumatic stress disorder) Surgical History (Updated 05/04/25 @ 01:31 by Vanessa Carter RN) H/O adenoidectomy H/O heart artery stent H/O spinal fusion Social History (Updated 05/04/25 @ 01:31 by Vanessa Carter RN) Smoking Status: Current every day smoker alcohol intake: former current occupational status: other Travel in the last 8 weeks?: None Have you lived/traveled outside [place] in past 30 days?: No Contact w/someone who lives/traveled outside US past 30 days?: No Exposure to someone with infectious disease in past 14 days?: No Do you have a fever (greater than 100.4 F or 38 C)?: No Have you tested positive for COVID-19?: No Exposed to someone with COVID-19 in past 14 days?: No Do you have a sore throat?: No Do you have a cough?: No Do you have any weakness?: No Do you have any diarrhea?: No Are you experiencing any unusual bleeding?: No Do you have any muscle aches/pain?: No Do you have any abdominal pain?: No Are you experiencing loss of taste or smell?: No Other Medical History Have you received the Flu Vaccine for this season: No Have you received the Pneumonia Vaccine: No ROS Obtained: Yes All systems reviewed & no additional complaints except as documented Physical Exam General General appearance: alert and in no apparent distress Head Head exam: atraumatic Eye Eye exam: Present normal appearance, PERRL and EOMI ENT ENT exam: Present mucous membranes moist Neck Neck exam: Present normal inspection and full ROM; Absent tenderness Chest Chest inspection: Present symmetric chest wall rise; Absent tenderness Respiratory Respiratory exam: Present wheezes (Bilateral terminal expiratory wheeze); Absent respiratory distress or accessory muscle use Cardiovascular Cardiovascular exam: Present regular rate and normal rhythm Abdominal Exam Abdominal exam: Present soft; Absent tenderness or guarding Extremities Exam Extremities exam: Present full ROM; Absent tenderness Neurological Exam Neurological exam: Present alert and oriented X3 Psychiatric Psychiatric exam: Present normal affect Skin Skin exam: Present warm and dry HEART Score HEART Score HEART Score assessment performed?: Yes History (anamnesis): Slightly suspicious ECG: Non-specific disturbance Age: 45-65 years Risk factors: 3 or more risk factors Troponin: </= normal limit HEART Score: 4 Critical Care Critical Care Time Critical Care Time: No Medical Decision Making Jarocho Inquiry Pt receiving controlled substance: No Jarocho was queried for this patient: No Vital Signs Vital Signs: 05/16/25 09:09 05/16/25 09:30 05/16/25 10:00 Temperature 97.9 F Temperature Source Axillary Pulse Rate 80 87 Pulse Rate [Left] 72 Respiratory Rate 21 18 13 Blood Pressure 134/82 133/90 Blood Pressure [Right Arm] 145/97 H Blood Pressure Mean 102 101 Blood Pressure Mean [Right Arm] 113 Blood Pressure Source Blood Pressure Source [Right Arm] Automatic Cuff Blood Pressure Position Blood Pressure Position [Right Arm] Sitting 02 Sat by Pulse Oximetry 99 97 94 L Oxygen Delivery Method Room Air 05/16/25 11:10 Temperature 98 F Temperature Source Oral Pulse Rate 80 Pulse Rate [Left] Respiratory Rate 18 Blood Pressure 130/88 Blood Pressure [Right Arm] Blood Pressure Mean Blood Pressure Mean [Right Arm] Blood Pressure Source Automatic Cuff Blood Pressure Source [Right Arm] Blood Pressure Position Sitting Blood Pressure Position [Right Arm] 02 Sat by Pulse Oximetry Oxygen Delivery Method Room Air Lab Data Lab results reviewed: Yes I reviewed the patient's lab results. Labs: Lab Results 05/16/25 09:06: WBC 17.8 H D, RBC 4.40 L, Hgb 12.3 L, Hct 37.8 L, MCV 85.9, MCH 28.0, MCHC 32.5, RDW 16.1, Plt Count 389, MPV 10.4, Neut % (Auto) 81.4 H, Lymph % (Auto) 10.8, [place] % (Auto) 6.5, Eos % (Auto) 0.2, Baso % (Auto) 0.2, Neut # (Auto) 14.4 H, Lymph # (Auto) 1.9, [place] # (Auto) 1.2 H, Eos # (Auto) 0.0, Baso # (Auto) 0.0, Sodium 141, Potassium 3.4 L, Chloride 105, Carbon Dioxide 23, Anion Gap 16.4 H, BUN 13, Creatinine 1.20, Estimated Creat Clear 91, Estimated GFR 63, Est GFR ( Amer) 77 D, Glucose 175 H, Calcium 10.1, Total Bilirubin 0.5, AST 42 D, ALT 22 D, Alkaline Phosphatase 97, Troponin I < 0.01, Total Protein 7.5, Albumin 4.6, Globulin 2.9, Albumin/Globulin Ratio 1.6 05/16/25 09:06 05/16/25 09:06 Response Orders (Tests/Meds): ED MEDICATIONS Discontinued Medications Generic Name Dose Route Start Last Admin Trade Name Freq PRN Reason Stop Dose Admin Albuterol/Ipratropium 3 ml 05/16/25 09:48 05/16/25 10:03 Ipratropium/Albuterol 3 Ml Neb IH 05/16/25 09:49 3 ml ONCE ONE Administration ORDERS Category Date Time Status Chest XR -- portable [XR chest portable] Stat Exams 05/16/25 09:49 Completed CBC w/Auto Diff [Complete Blood Count Auto Diff] Stat Lab 05/16/25 09:06 Completed CMP [Comprehensive Metabolic Panel] Stat Lab 05/16/25 09:06 Completed Trop I [Troponin I] Stat Lab 05/16/25 09:06 Completed MDM Narrative Medical Decision Narrative: 54-year-old male with history of CAD, COPD, PTSD, TIA presenting with chest pain. He presents very frequently for this symptom, however he does have quite a significant cardiac history. Differential diagnosis includes but is not limited to anxiety, referred pain, malingering, ACS, pneumonia, COPD exacerbation. On my initial assessment, the patient is wheezing bilaterally. He is hemodynamically stable without concurrent tachycardia. O2 sat 94% on room air which is appropriate considering his history of COPD. EKG shows normal sinus rhythm with first-degree AV block at a rate of 88. QRS and QTc normal. Normal axis. No acute ischemic changes. Patient took 4 baby aspirin prior to ED arrival. Initial troponin less than 0.01. CBC is notable for a leukocytosis with blood cell count of 17.8. The patient is afebrile here in the emergency department without concurrent hypotension or tachycardia. CMP without KELVIN. Very mild hypokalemia. LFTs within normal limits. Chest x-ray potentially with a left lower lobe developing pneumonia. Radiology reads no acute cardio pulmonary process. Considering leukocytosis, wheezing, and complaints of chest pain, I agree with previously prescribed treatment for pneumonia. The patient has been recently prescribed Augmentin, albuterol, and prednisone. These prescriptions were resent to the correct pharmacy. He was provided with refills of his albuterol nebulizer solution as well.
[2025-05-16 09:53] LABS: Hematocrit 37.8 % (42.0-52.0); Hemoglobin 12.3 g/dL (14.1-18.0); Immature Granulocytes % 0.9 %; Mean Corpuscular HGB Conc 32.5 g/dL (31.8-35.4); Mean Corpuscular Hemoglobin 28.0 pg (27.0-31.2); Mean Corpuscular Volume 85.9 fl (80-94); Nucleated Red Blood Cells % 0 %; Platelet Count 389 K/mm3 (142-424); Red Blood Count 4.40 M/mm3 (4.60-6.20); Red Cell Distribution Width-SD 50.6 fL; White Blood Count 17.8 K/mm3 (4.8-10.8)
[2025-05-16 09:57] LABS: Albumin Level 4.6 g/dl (3.5-5.0); Chloride 105 mmol/L (98-107); Potassium 3.4 mmoL/L (3.5-5.1); Sodium 141 mmol/L (136-145)
[2025-05-16 10:00] VITALS: BP 133/90; PULSE 87; RESP 13; O2SAT 94
[2025-05-16 10:00] LABS: Alanine Aminotransferase 22 U/L (12-78); Albumin/Globulin Ratio 1.6 (1.1-1.8); Alkaline Phosphatase 97 U/L (38-126); Anion Gap 16.4 mEq/L (5-15); Aspartate Amino Transferase 42 U/L (17-59); Bilirubin,Total 0.5 mg/dl (0.2-1.3); Blood Urea Nitrogen 13 mg/dl (9-20); Calcium 10.1 mg/dl (8.4-10.2); Carbon Dioxide 23 mmol/L (22.0-30.0); Creatinine Clearance Estimated 91 mL/min (50-200); Creatinine,Serum 1.20 mg/dl (0.66-1.25); Estimated Glomerular Filt Rate 63 ml/min (>60); GFR (African American) 77 ML/MIN (>60); Globulin 2.9 g/dL (1.3-3.2); Glucose 175 mg/dl (74-100); Total Protein,Serum 7.5 g/dl (6.3-8.2)
[2025-05-16] MEDS: IPRATROPIUM/ALBUTEROL 3 ML NEB IH (10:03)
[2025-05-16 10:18] LABS: Troponin I < 0.01 ng/ml (0.00-0.034)
--- NOTE | 2025-05-16 10:31 | PC.NURSE ---
Asked pt several times to kep the BP cuff on and the pulse ox so we could monitor him. Pt refused to do so and said all he needed were his test results and that he didnt need to have that stuff on. Also wanted to pull his IV but convinced him not to do that as of right now.
--- NOTE | 2025-05-16 11:05 | PC.NURSE ---
[facility] NOTIFIED OF TRANSPORT
[2025-05-16 11:10] VITALS: BP 130/88; PULSE 80; RESP 18; TEMP 36.6; O2SAT 95
== END 2025-05-16 11:10 | disposition home or self-care (01) ==
PROVIDERS: Emergency Provider Student in an Organized Health Care Education/Training Program; PCP Internal Medicine
DX: J18.9 Pneumonia, unspecified organism (principal); J43.9 Emphysema, unspecified; R07.9 Chest pain, unspecified; F17.210 Nicotine dependence, cigarettes, uncomplicated; I44.0 Atrioventricular block, first degree
CPT/HCPCS: 71045; 80053; 84484; 85025; 93005; 99285

== ENCOUNTER 2025-05-18 20:32 | Emergency (ER) | payer MEDICARE, OTHER, SELFPAY ==
[2025-05-18] VITALS (13 sets, daily range): BP systolic 128–176; BP diastolic 78–106; PULSE 63–83; RESP 12–24; TEMP 37.1; O2SAT 92–100; BMI 29.8
--- NOTE | 2025-05-18 19:33 | ECG_ITS ---
APPROVED REPORT Exam: Resting ECG HR:83 bpm ECG Measurements Heart Rate 83 AXES NM 150 P 52 QRSd 118 QRS 49 QT 398 T 64 QTc 438 Conclusion EKG showed normal sinus rhythm without acute ST or T wave changes concerning for ischemia Electronically signed by : Griselda Martinez, 05/19/2025 01:59:37
--- NOTE | 2025-05-18 19:36 | XR_ITS ---
PROCEDURE INFORMATION: Exam: XR Chest Exam date and time: 05/18/2025 7:44 PM Age: 54 years old Clinical indication: Pain; Shortness of breath; Chest pressure; Additional info: Chest pain/shortness of breath TECHNIQUE: Imaging protocol: Radiologic exam of the chest. Views: 1 view. COMPARISON: CR XR CHEST PORTABLE 05/16/2025 10:21 AM FINDINGS: Lungs: Pleuroparenchymal scarring of the lung bases with subsegmental atelectasis is present without consolidations or pleural effusions that project above the diaphragm. Pleural spaces: Unremarkable. No pleural effusion. No pneumothorax. Heart/Mediastinum: Unremarkable. No cardiomegaly. Bones/joints: Unremarkable. IMPRESSION: Pleuroparenchymal scarring of the lung bases with subsegmental atelectasis is present without consolidations or pleural effusions that project above the diaphragm.
--- NOTE | 2025-05-18 19:43 | PC.NURSE ---
Contacted Respiratory r/t VBG sent to lab.
[2025-05-18 19:50] LABS: Lactate Venous 2.0 mmol/L (0.4-2.0); VBG HCO3 25.2 mmol/L (23-30); VBG PCO2 41.0 mmol/L (35-51); VBG PH 7.41 mmol/L (7.31-7.41); VBG PO2 57.8 mmol/L (28-40)
[2025-05-18 19:55] LABS: Hematocrit 40.9 % (42.0-52.0); Hemoglobin 13.4 g/dL (14.1-18.0); Immature Granulocytes % 1.0 %; Mean Corpuscular HGB Conc 32.8 g/dL (31.8-35.4); Mean Corpuscular Hemoglobin 27.9 pg (27.0-31.2); Mean Corpuscular Volume 85.2 fl (80-94); Nucleated Red Blood Cells % 0 %; Platelet Count 394 K/mm3 (142-424); Red Blood Count 4.80 M/mm3 (4.60-6.20); Red Cell Distribution Width-SD 50.0 fL; White Blood Count 9.8 K/mm3 (4.8-10.8)
[2025-05-18] MEDS: MORPHINE 2MG/ML SYRINGE 4 MG IV (20:11)
[2025-05-18] MEDS: ASPIRIN 325MG TABLET 325 MG PO (20:11)
[2025-05-18 20:12] LABS: Alanine Aminotransferase 17 U/L (12-78); Albumin Level 4.6 g/dl (3.5-5.0); Albumin/Globulin Ratio 1.6 (1.1-1.8); Alkaline Phosphatase 129 U/L (38-126); Anion Gap 15.3 mEq/L (5-15); Aspartate Amino Transferase 25 U/L (17-59); Bilirubin,Total 0.6 mg/dl (0.2-1.3); Blood Urea Nitrogen 27 mg/dl (9-20); Calcium 9.8 mg/dl (8.4-10.2); Carbon Dioxide 25 mmol/L (22.0-30.0); Chloride 102 mmol/L (98-107); Creatinine Clearance Estimated 58 mL/min (50-200); Creatinine,Serum 1.90 mg/dl (0.66-1.25); Estimated Glomerular Filt Rate 37 ml/min (>60); GFR (African American) 45 ML/MIN (>60); Globulin 2.8 g/dL (1.3-3.2); Glucose 146 mg/dl (74-100); Potassium 4.3 mmoL/L (3.5-5.1); Sodium 138 mmol/L (136-145); Total Protein,Serum 7.4 g/dl (6.3-8.2)
[2025-05-18 20:16] LABS: D-Dimer 0.48 ug/mL (0.0-0.5)
[2025-05-18 20:23] LABS: NT Pro Brain Natriuretic Pep. 114 pg/mL (0-125)
--- NOTE | 2025-05-18 20:33 | [facility].EDGENADL ---
Discharge Plan Disposition Patient Disposition: Home, Self-Care Condition: Good Prescriptions Prescriptions: No Action benzonatate 100 mg capsule 100 mg PO TID PRN (Reason: cough) 5 Days Qty: 20 0RF prednisone 50 mg tablet 50 mg PO DAILY 5 Days Qty: 5 0RF Rx Instructions: Please begin 1 day after ED visit albuterol sulfate 90 mcg/actuation HFA aerosol inhaler 4 inh inhalation Q4H PRN (Reason: shortness of breath or wheezing) Qty: 8.5 0RF Rx Instructions: 4 puffs every 4 hours for 48 hours then as needed for shortness of breath or wheezing following amoxicillin-pot clavulanate 875-125 mg tablet 1 tab PO BID 10 Days Qty: 20 0RF albuterol sulfate 2.5 mg /3 mL (0.083 %) solution for nebulization 2.5 mg inhalation Q6H PRN (Reason: bronchospasm) Qty: 75 0RF atorvastatin 80 mg Tablet 80 mg PO DAILY amiodarone 200 mg Tablet 200 mg PO DAILY prazosin 1 mg Capsule 1 mg PO HS lisinopril 20 mg Tablet 20 mg PO DAILY clopidogrel 75 mg Tablet 75 mg PO DAILY isosorbide mononitrate 60 mg Tablet Extended Release 24 Hr 60 mg PO DAILY tamsulosin 0.4 mg Capsule 0.4 mg PO DAILY amlodipine 10 mg Tablet 10 mg PO DAILY ferrous sulfate [FeroSul] 325 mg (65 mg iron) Tablet 325 mg PO DAILY levothyroxine 200 mcg Tablet 200 mcg PO DAILY fluphenazine HCl 5 mg Tablet 5 mg PO DAILY pantoprazole [address] For Susp In Packet 40 mg PO DAILY duloxetine 60 mg Capsule, Delayed Rel Sprinkle 60 mg PO DAILY nitroglycerin 0.4 mg Tablet, Sublingual 0.4 mg SUBLINGUAL Q5M PRN (Reason: Chest Pain) Rx Instructions: do not exceed 3 doses per episode ranolazine 500 mg Tablet Extended Release 12 Hr 500 mg PO BID fluticasone furoate [Arnuity Ellipta] 100 mcg/actuation Blister With Device 1 inh INHALATION DAILY carvedilol 6.25 mg Tablet 6.25 mg PO BID 30 Days Qty: 60 0RF Referrals Follow up/Referrals: Delbert Larsen MD [Staff Physician, Cardiology] - See instructions Provider,Referral, [Primary Care Provider, Medical] - See instructions Activity Restrictions/Add. Instructions Additional Instructions/Restrictions: Please follow-up with cardiology as scheduled. Return to the emergency department for any acute or worsening chest pain. Clinical Impressions Clinical Impression: Chest pain Print Language Print Language: Nepali Discharge ED Provider: Griselda Martinez Adult HPI General Chief complaint: Chest Pain Stated complaint: chest pain Time Seen by Provider: 05/18/25 20:33 Mode of Arrival: EMS Source of Information: Patient and EMS Description of Symptoms (Recalled from ER Triage Doc. by RN): PT brought to the ED via [facility] for evaluation of CP. PT stated his CP started 1 hour prior to arrival, stated he took 3 Nitros 5 minutes apart . Stated his pain is still constant. PT stated he recently got dx with pneumonia. History of Present Illness HPI narrative: Patient is a 54-year-old gentleman with a past medical history of significant coronary artery disease with multiple stents previous heart attacks who presented to the emergency department with chest pain. Patient states that his chest pain is left-sided. Started 1 hour prior to arrival. Patient states that he took 3 nitros that helped mildly. Patient denies any shortness of breath. Denies any numbness weakness headache vision changes or other neurologic symptoms. States that he was recently diagnosed with pneumonia and is currently on antibiotics. Patient denies any abdominal pain nausea vomiting or diarrhea. Patient states that his pain is not pleuritic in nature, not exertional. Related Data Home Medications ?Medication ?Instructions ?Recorded ?Confirmed amiodarone 200 mg tablet 200 mg PO DAILY 05/03/25 05/03/25 amlodipine 10 mg tablet 10 mg PO DAILY 05/03/25 05/03/25 atorvastatin 80 mg tablet 80 mg PO DAILY 05/03/25 05/03/25 clopidogrel 75 mg tablet 75 mg PO DAILY 05/03/25 05/03/25 duloxetine 60 mg capsule,delayed 60 mg PO DAILY 05/03/25 05/03/25 release sprinkle ferrous sulfate 325 mg (65 mg 325 mg PO DAILY 05/03/25 05/03/25 iron) tablet (FeroSul) fluphenazine HCl 5 mg tablet 5 mg PO DAILY 05/03/25 05/03/25 fluticasone furoate 100 1 inh inhalation DAILY 05/03/25 05/03/25 mcg/actuation blister powder for inhalation (Arnuity Ellipta) isosorbide mononitrate 60 mg 60 mg PO DAILY 05/03/25 05/03/25 tablet,extended release 24 hr levothyroxine 200 mcg tablet 200 mcg PO DAILY 05/03/25 05/03/25 lisinopril 20 mg tablet 20 mg PO DAILY 05/03/25 05/03/25 nitroglycerin 0.4 mg sublingual 0.4 mg sublingual Q5M PRN Chest 05/03/25 05/03/25 tablet Pain pantoprazole 40 mg granules 40 mg PO DAILY 05/03/25 05/03/25 delayed-release for susp in packet prazosin 1 mg capsule 1 mg PO HS 05/03/25 05/03/25 ranolazine 500 mg tablet,extended 500 mg PO BID 05/03/25 05/03/25 release,12 hr tamsulosin 0.4 mg capsule 0.4 mg PO DAILY 05/03/25 05/03/25 Previous Rx's ?Medication ?Instructions ?Recorded carvedilol 6.25 mg tablet 6.25 mg PO BID 30 days #60 tabs 05/04/25 albuterol sulfate 90 mcg/actuation 4 inh inhalation Q4H PRN shortness 05/15/25 aerosol inhaler of breath or wheezing #8.5 grams amoxicillin 875 mg-potassium 1 tab PO BID 10 days #20 tabs 05/15/25 clavulanate 125 mg tablet benzonatate 100 mg capsule 100 mg PO TID PRN cough 5 days #20 05/15/25 caps prednisone 50 mg tablet 50 mg PO DAILY 5 days #5 tabs 05/15/25 albuterol sulfate 2.5 mg/3 mL 2.5 mg (3 mL) inhalation Q6H PRN 05/16/25 (0.083 %) solution for nebulization bronchospasm #75 mL Allergies Allergy/AdvReac Type Severity Reaction Status Date / Time acetaminophen (From Tylenol) Allergy Hives Verified 05/15/25 07:01 buspirone Allergy Unknown Verified 05/15/25 07:01 allergy reaction ibuprofen Allergy Rash Verified 05/15/25 07:01 ketorolac (From Toradol) Allergy Hives Verified 05/15/25 07:01 olanzapine (From Zyprexa) Allergy Unknown Verified 05/15/25 07:01 allergy reaction risperidone (From Risperdal) Allergy Unknown Verified 05/15/25 07:01 allergy reaction tramadol Allergy Hives Verified 05/15/25 07:01 ziprasidone (From Geodon) Allergy Unknown Verified 05/15/25 07:01 allergy reaction PFSH PFS Disclaimer: The information contained in this section may have been updated after the patient was seen, as this information can be updated by other users. Medical History (Updated 05/19/25 @ 00:12 by Griselda Martinez DO) Stress bladder incontinence, male Pneumonia Emphysema/COPD History of transient ischemic attack (TIA) Colonoscopy planned Stomach ulcer Hypothyroid Congestive heart failure Hypertension Tonsillectomy planned Cholecystectomy planned Spinal stenosis History of left heart catheterization PTSD (post-traumatic stress disorder) Surgical History (Updated 05/04/25 @ 01:31 by Vanessa Carter RN) H/O adenoidectomy H/O heart artery stent H/O spinal fusion Social History (Updated 05/04/25 @ 01:31 by Vanessa Carter RN) Smoking Status: Current every day smoker alcohol intake: former current occupational status: other Travel in the last 8 weeks?: None Have you lived/traveled outside [place] in past 30 days?: No Contact w/someone who lives/traveled outside [place] past 30 days?: No Exposure to someone with infectious disease in past 14 days?: No Do you have a fever (greater than 100.4 F or 38 C)?: No Have you tested positive for COVID-19?: No Exposed to someone with COVID-19 in past 14 days?: No Do you have a sore throat?: No Do you have a cough?: No Do you have any weakness?: No Do you have any diarrhea?: No Are you experiencing any unusual bleeding?: No Do you have any muscle aches/pain?: No Do you have any abdominal pain?: No Are you experiencing loss of taste or smell?: No Other Medical History Have you received the Flu Vaccine for this season: No Have you received the Pneumonia Vaccine: No ROS Obtained: Yes All systems reviewed & no additional complaints except as documented and Yes Systems reviewed as appropriate & no additional complaints except as documented Physical Exam General General appearance: alert and in no apparent distress Head Head exam: atraumatic, normocephalic and normal inspection Eye Eye exam: Present normal appearance, PERRL and EOMI; Absent scleral icterus ENT ENT exam: Present normal exam and normal external ear exam Neck Neck exam: Present normal inspection and full ROM Chest Chest inspection: Present normal inspection and symmetric chest wall rise Respiratory Respiratory exam: Present normal lung sounds bilaterally; Absent respiratory distress or wheezes Cardiovascular Cardiovascular exam: Present regular rate, normal rhythm and normal heart sounds Abdominal Exam Abdominal exam: Present soft and distention; Absent tenderness, guarding or rebound Extremities Exam Extremities exam: Present normal inspection and full ROM Back Exam Back exam: Present normal inspection and full ROM Neurological Exam Neurological exam: Present alert and oriented X3 Psychiatric Psychiatric exam: Present normal affect and normal mood Skin Skin exam: Present warm and dry Medical Decision Making Medical Records Medical records reviewed: Yes I reviewed the patient's medical records. Screening: Per USPSTF and CDC recommendations, given the prevalence of disease in our region, it is our hospital?s policy to screen for HIV and viral Hepatitis for all patients aged 18 and over and those with ongoing risk factors. [place] Inquiry Pt receiving controlled substance: No Vital Signs: 05/18/25 19:37 05/18/25 19:44 05/18/25 19:45 Temperature 98.7 F 98.7 F Temperature Source Oral Pulse Rate 81 83 Pulse Rate [Right] 81 Respiratory Rate 13 16 Blood Pressure 141/87 H Blood Pressure [Right Arm] 141/87 H Blood Pressure Mean Blood Pressure Mean [Right Arm] 105 02 Sat by Pulse Oximetry 96 96 Oxygen Delivery Method Room Air Room Air 05/18/25 20:14 05/18/25 20:30 05/18/25 21:00 Temperature Temperature Source Pulse Rate 74 71 63 Pulse Rate [Right] Respiratory Rate 18 19 19 Blood Pressure 161/93 H 128/78 133/81 Blood Pressure [Right Arm] Blood Pressure Mean 94 92 Blood Pressure Mean [Right Arm] 02 Sat by Pulse Oximetry 95 92 L 94 L Oxygen Delivery Method Room Air Room Air 05/18/25 21:24 05/18/25 21:31 05/18/25 21:33 Temperature Temperature Source Pulse Rate 73 71 71 Pulse Rate [Right] Respiratory Rate 12 12 13 Blood Pressure 133/81 171/97 H 158/93 H Blood Pressure [Right Arm] Blood Pressure Mean 121 117 Blood Pressure Mean [Right Arm] 02 Sat by Pulse Oximetry 100 100 100 Oxygen Delivery Method Room Air 05/18/25 22:00 05/18/25 22:30 05/18/25 23:00 Temperature Temperature Source Pulse Rate 78 73 78 Pulse Rate [Right] Respiratory Rate 24 18 18 Blood Pressure 164/106 H 174/84 H 176/86 H Blood Pressure [Right Arm] Blood Pressure Mean 118 114 121 Blood Pressure Mean [Right Arm] 02 Sat by Pulse Oximetry 95 95 95 Oxygen Delivery Method 05/18/25 23:30 05/19/25 00:50 Temperature 98.6 F Temperature Source Pulse Rate 70 70 Pulse Rate [Right] Respiratory Rate 19 19 Blood Pressure 150/83 H 150/83 H Blood Pressure [Right Arm] Blood Pressure Mean 112 Blood Pressure Mean [Right Arm] 02 Sat by Pulse Oximetry 96 Oxygen Delivery Method Room Air Lab Data Lab results reviewed: Yes I reviewed the patient's lab results. Lab Results 05/18/25 19:41: WBC 9.8 D, RBC 4.80, Hgb 13.4 L, Hct 40.9 L, MCV 85.2, MCH 27.9, MCHC 32.8, RDW 16.1, Plt Count 394, MPV 10.3, Neut % (Auto) 81.4 H, Lymph % (Auto) 13.1, Gem % (Auto) 4.1, Eos % (Auto) 0.0 L, Baso % (Auto) 0.4, Neut # (Auto) 8.0 H, Lymph # (Auto) 1.3, Gem # (Auto) 0.4, Eos # (Auto) 0.0, Baso # (Auto) 0.0, D-Dimer 0.48, Sodium 138, Potassium 4.3 D, Chloride 102, Carbon Dioxide 25, Anion Gap 15.3 H, BUN 27 H D, Creatinine 1.90 H D, Estimated Creat Clear 58, Estimated GFR 37 L, Est GFR ( Amer) 45 L D, Glucose 146 H, Calcium 9.8, Total Bilirubin 0.6, AST 25 D, ALT 17, Alkaline Phosphatase 129 H, Troponin I < 0.01, NT-Pro-B Natriuret Pep 114, Total Protein 7.4, Albumin 4.6, Globulin 2.8, Albumin/Globulin Ratio 1.6, HCV Ab NELLA w/Rflx PCR Qn Reactive, HIV Ag/Ab Combo Qual Negative 05/18/25 19:43: VBG pH 7.41, VBG pCO2 41.0, VBG pO2 57.8 H, VBG HCO3 25.2, VBG Total CO2 26.5, VBG O2 Saturation 90.3 H, VBG Base Excess 0.5, VBG Lactic Acid 2.0 05/18/25 22:44: Troponin I < 0.01 05/18/25 19:41 05/18/25 19:41 Orders (Tests/Meds): ED MEDICATIONS Discontinued Medications Generic Name Dose Route Start Last Admin Trade Name [place] PRN Reason Stop Dose Admin Acetaminophen 1,000 mg 05/18/25 22:27 05/18/25 22:34 Acetaminophen 500mg Tab PO 05/18/25 22:28 Not Given ONCE ONE Albuterol/Ipratropium 9 ml 05/18/25 21:10 05/18/25 21:19 Ipratropium/Albuterol 3 Ml Neb IH 05/18/25 21:11 9 ml ONCE ONE Administration Aspirin 325 mg 05/18/25 19:48 05/18/25 20:11 Aspirin 325mg Tablet PO 05/18/25 19:49 325 mg ONCE ONE Administration Sodium Chloride 500 mls @ 999 mls/hr 05/18/25 21:11 05/18/25 22:08 Sod Chlor 0.9% 1000ml Bag IV 05/18/25 21:41 Infused .Q31M ONE Infusion Ketorolac Tromethamine 30 mg 05/18/25 22:27 05/18/25 22:35 Ketorolac 30mg/Ml Vial IV 05/18/25 22:28 Not Given ONCE ONE Methocarbamol 500 mg 05/18/25 22:28 05/18/25 22:33 Methocarbamol 500mg Tablet PO 05/18/25 22:29 500 mg ONCE ONE Administration Morphine Sulfate 4 mg 05/18/25 19:48 05/18/25 20:11 Morphine 2mg/Ml Syringe IV 05/18/25 19:49 4 mg ONCE ONE Administration Oxycodone HCl 5 mg 05/19/25 00:11 05/19/25 00:16 Oxycodone 5mg Immediate Release Tablet PO 05/19/25 00:12 5 mg ONCE ONE Administration ORDERS Category Date Time Status CXR --portable [XR chest portable] Stat Exams 05/18/25 19:36 Completed BNP [NT Pro Brain Natriuretic Pep.] Stat Lab 05/18/25 19:41 Completed CBC w/Auto Diff [Complete Blood Count Auto Diff] Stat Lab 05/18/25 19:41 Completed CMP [Comprehensive Metabolic Panel] Stat Lab 05/18/25 19:41 Completed D-Dimer Stat Lab 05/18/25 19:41 Completed HCV RNA PCR, Quant Stat Lab 05/18/25 19:41 Received HIV Combo Stat Lab 05/18/25 19:41 Completed Hepatitis C Ab Qual. W/ RFX Stat Lab 05/18/25 19:41 Completed Trop I [Troponin I] Stat Lab 05/18/25 19:41 Completed Troponin I Q3H Lab 05/18/25 22:44 Completed VBG [Venous Blood Gas] Stat RT 05/18/25 19:43 Completed Medical Decision Narrative: Patient is a 54-year-old gentleman with a past medical history of coronary artery disease with previous stents who presents to the emergency department with chest pain. On arrival, patient was hemodynamically stable with unremarkable vital signs. Differential includes but not limited to: ACS/[place], unstable angina, electrolyte abnormalities, pneumonia, pneumothorax, pleural effusion, pulmonary embolism, amongst others. Patient's labs were reviewed and interpreted by myself: CBC showed no leukocytosis, hemoglobin was stable. D-dimer normal at 0.48. VBG was unremarkable. CMP was unremarkable except for mildly elevated creatinine at 1.9. Troponin less than 0.01, second troponin less than 0.01. BNP normal. Chest x-ray was reviewed and interpreted by myself and showed no acute focal saltation, pneumothorax, pleural effusion or other acute cardiopulmonary process. On repeat assessment, patient did report improvement in his symptoms. Patient was given morphine and aspirin for his symptoms. At this time given patient's heart score of 4 I felt the patient was appropriate for discharge home. Patient was recently admitted 2 weeks ago for unstable angina where patient was seen by cardiology, per their note, patient had a cath done on 31 March as well. Patient was discharged home with outpatient cardiology follow-up return precautions were discussed. Critical Care Critical Care Time Critical Care Time: No
[2025-05-18 20:36] LABS: Troponin I < 0.01 ng/ml (0.00-0.034)
[2025-05-18 20:59] LABS: Hepatitis C Ab Qual. W/ RFX REACTIVE (Negative)
[2025-05-18] MEDS: 0.9 % SODIUM CHLORIDE 1000ML 500 ML 999 ML IV (21:19)
[2025-05-18] MEDS: IPRATROPIUM/ALBUTEROL 3 ML NEB 9 ML IH (21:19)
[2025-05-18] MEDS: METHOCARBAMOL 500MG TABLET 500 MG PO (22:33)
[2025-05-18 23:32] LABS: Troponin I < 0.01 ng/ml (0.00-0.034)
[2025-05-19] MEDS: OXYCODONE 5MG IMMEDIATE RELEASE TABLET 5 MG PO (00:16)
[2025-05-19 00:50] VITALS: BP 150/83; PULSE 70; RESP 19; TEMP 37; O2SAT 96
--- NOTE | 2025-05-19 01:03 | PC.NURSE ---
Called [facility] x 2 30 min apart for transport Was told they are working on it and would call back
== END 2025-05-19 00:50 | disposition home or self-care (01) ==
PROVIDERS: Emergency Provider Student in an Organized Health Care Education/Training Program
DX: R07.9 Chest pain, unspecified (principal); F17.210 Nicotine dependence, cigarettes, uncomplicated; I11.0 Hypertensive heart disease with heart failure; I50.9 Heart failure, unspecified; Z86.73 Personal history of transient ischemic attack (TIA), and cerebral infarction without residual deficits; Z86.79 Personal history of other diseases of the circulatory system; Z95.5 Presence of coronary angioplasty implant and graft
CPT/HCPCS: 71045; 80053; 82803; 83880; 84484; 85025; 85378; 86803; 87389; 87522; 93005; 96374; 99285; J1885; J2270; J7030